=== PATIENT | female | born 1985 | race Caucasian/White ===

== ENCOUNTER 2018-03-05 20:24 | Emergency (ER) | payer SELFPAY ==
[2018-03-05 20:25] VITALS: BP 161/87; PULSE 97; RESP 18; TEMP 36.8; O2SAT 99; BMI 31.8
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
[2018-03-05] MEDS: HYDROcodone Bitartrate/Apap 5/325 Tablet PO ×2 (21:24→22:34)
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
== END 2018-03-05 22:38 | disposition home or self-care (01) ==
PROVIDERS: Emergency Provider Emergency Medicine
DX: S29.012A Strain of muscle and tendon of back wall of thorax, initial encounter (principal); S80.12XA Contusion of left lower leg, initial encounter; V43.52XA Car driver injured in collision with other type car in traffic accident, initial encounter; Y93.9 Activity, unspecified; Y92.410 Unspecified street and highway as the place of occurrence of the external cause; Y99.9 Unspecified external cause status; Z72.0 Tobacco use
CPT/HCPCS: 71046; 72040; 72100; 99282

== ENCOUNTER 2018-03-08 14:45 | Emergency (ER) | payer SELFPAY ==
[2018-03-08 14:46] VITALS: BP 128/95; PULSE 93; RESP 18; TEMP 36.6; O2SAT 98; BMI 31.8
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
[2018-03-08 16:18] VITALS: BP 124/74; PULSE 62; RESP 15; O2SAT 98
--- NOTE | 2018-03-08 16:18 | ED.RN ---
PT REFUSED PERSCRIPTIONS STATING SHE ALREADY HAD BOTH OF THEM AT HOME. THEY WERE PLACED IN THE SHREDDER.
== END 2018-03-08 16:19 | disposition home or self-care (01) ==
LOC: ED 15:48
PROVIDERS: Emergency Provider Emergency Medicine
DX: S16.1XXD Strain of muscle, fascia and tendon at neck level, subsequent encounter (principal); S06.0X0D Concussion without loss of consciousness, subsequent encounter; V43.52XD Car driver injured in collision with other type car in traffic accident, subsequent encounter
CPT/HCPCS: 70450; 72125; 99282

== ENCOUNTER → 2019-04-30 08:45 | Outpatient (CLI) | payer MEDICAID, SELFPAY ==
[2019-03-25 16:27] VITALS: BMI 31.8
[2019-04-30 09:26] LABS: Absolute Lymphocyte Count 2.32 X10^3/uL (0.83-4.51); Absolute Neutrophil Count 4.4 X10^3/uL (2.0-7.7); Basophil# 0.05 X10^3/uL; Basophil% 0.7 % (0-1); Eosinophil# 0.11 X10^3/uL; Eosinophils% 1.4 % (0-5); Hematocrit 38.2 % (37-47); Hemoglobin 10.8 g/dL (12.0-15.0); Lymphocyte # 2.32 X10^3/ul (4.0); Lymphocyte % 30.6 % (19-41); Mean Corp Hgb Conc 28.3 g/dL (32-36); Mean Corpuscular Hgb 20.7 pg (27.0-32.0); Mean Corpuscular Volume 73.3 fL (81-99); Mean Platelet Vol. 10.6 fl (6.2-12.0); Monocyte# 0.66 X10^3/uL; Monocyte% 8.7 % (0-10); NRBC Flagged by Analyzer 0 % (0-5); Neutrophil # 4.42 X10^3/uL (2.7-7.7); Neutrophil % 58.2 % (47-70); POSITIVE MORPHOLOGY YES; Platelet Count 355 K/mm3 (150-450); RBC Distribution Width CV 21.9 % (11.6-14.6); RBC Distribution Width SD 56.3 fl (35.1-43.9); Red Blood Count 5.21 M/mm3 (4.2-5.4); White Blood Count 7.6 K/mm3 (4.4-11.0)
[2019-04-30 09:43] LABS: Differential Indicated SCAN CRITERIA MET
[2019-04-30 09:50] LABS: Anisocytosis 2+; Differential Comment SCANNED; Macrocytosis 1+; Microcytosis 1+
[2019-04-30 09:52] LABS: ALB/GLOB Ratio 0.9 RATIO (0.9-2.4); AST(SGOT) 64 U/L (15-37); Alanine Aminotransfer ALT/SGPT 106 U/L (13-56); Albumin, Serum 3.6 g/dL (3.2-5.0); Alkaline Phosphatase 92 U/L (45-117); Anion Gap 4 (5-15); BUN 7 mg/dL (7-18); BUN/Creat Ratio 11.7 RATIO (10-20); Calcium,Total 8.5 mg/dL (8.5-10.1); Chloride 108 mmol/L (98-107); Cholesterol 117 mg/dL (200); EST Glomerular Filtration Rate 122 mL/min (>60); Est Glom Filt Rate - Afr Amer 148 mL/min (>60); Ferritin 7 ng/mL (8-252); Globulin 4.2 g/dL (2.2-4.2); Glucose 101 mg/dL (74-106); High Density Lipoprotein 33 mg/dL; Iron 19 ug/dL (50-170); Iron Binding Capacity,Total 382 ug/dL (250-450); Potassium 3.8 mmol/L (3.5-5.1); Protein, Total 7.8 g/dL (6.4-8.2); Sodium Level 140 mmol/L (136-145); Triglycerides 121 mg/dL; Very Low Density Lipoprotein 24 mg/dL (5-40)
[2019-05-02 09:33] LABS: Vitamin D,25 Hydroxy 25.9 ng/mL (29.95-100.01)
== END ==
PROVIDERS: Family Provider Family Medicine; PCP Family Medicine; Referring Provider Family Medicine; Visit Provider Family Medicine
DX: D64.9 Anemia, unspecified (principal); R53.83 Other fatigue; Z13.220 Encounter for screening for lipoid disorders
CPT/HCPCS: 36415; 80053; 80061; 82306; 82728; 83540; 83550; 85025

== ENCOUNTER → 2019-07-20 16:41 | Outpatient (CLI) | payer MEDICAID, SELFPAY ==
[2019-03-25 16:27] VITALS: BMI 31.8
[2019-07-20 18:11] LABS: Absolute Lymphocyte Count 3.08 X10^3/uL (0.83-4.51); Absolute Neutrophil Count 5.3 X10^3/uL (2.0-7.7); Basophil# 0.04 X10^3/uL; Basophil% 0.4 % (0-1); Eosinophil# 0.09 X10^3/uL; Hematocrit 39.3 % (37-47); Hemoglobin 11.9 g/dL (12.0-15.0); Lymphocyte # 3.08 X10^3/ul (4.0); Lymphocyte % 33.3 % (19-41); Mean Corp Hgb Conc 30.3 g/dL (32-36); Mean Corpuscular Hgb 24.1 pg (27.0-32.0); Mean Corpuscular Volume 79.6 fL (81-99); Mean Platelet Vol. 11.5 fl (6.2-12.0); Monocyte# 0.76 X10^3/uL; Monocyte% 8.2 % (0-10); NRBC Flagged by Analyzer 0 % (0-5); Neutrophil # 5.26 X10^3/uL (2.7-7.7); Neutrophil % 56.8 % (47-70); Platelet Count 324 K/mm3 (150-450); RBC Distribution Width CV 17.2 % (11.6-14.6); RBC Distribution Width SD 49.4 fl (35.1-43.9); Red Blood Count 4.94 M/mm3 (4.2-5.4); White Blood Count 9.3 K/mm3 (4.4-11.0)
[2019-07-22 12:35] LABS: ALB/GLOB Ratio 0.9 RATIO (0.9-2.4); AST(SGOT) 27 U/L (15-37); Alanine Aminotransfer ALT/SGPT 41 U/L (13-56); Albumin, Serum 3.6 g/dL (3.2-5.0); Alkaline Phosphatase 82 U/L (45-117); Anion Gap 7 (5-15); BUN 6 mg/dL (7-18); BUN/Creat Ratio 10.4 RATIO (10-20); Calcium,Total 8.9 mg/dL (8.5-10.1); Chloride 104 mmol/L (98-107); Creatinine, Serum 0.58 mg/dL (0.55-1.02); EST Glomerular Filtration Rate 126 mL/min (>60); Est Glom Filt Rate - Afr Amer 153 mL/min (>60); Globulin 4.1 g/dL (2.2-4.2); Glucose 108 mg/dL (74-106); Protein, Total 7.7 g/dL (6.4-8.2); Sodium Level 138 mmol/L (136-145)
== END ==
PROVIDERS: PCP Family Medicine; Referring Provider Family Medicine; Visit Provider Family Medicine
DX: R53.83 Other fatigue (principal); R94.5 Abnormal results of liver function studies
CPT/HCPCS: 36415; 80053; 82306; 85025

== ENCOUNTER → 2019-10-14 15:55 | Outpatient (CLI) | payer MEDICAID, SELFPAY ==
[2019-03-25 16:27] VITALS: BMI 31.8
[2019-10-14 18:00] LABS: Absolute Lymphocyte Count 2.38 X10^3/uL (0.83-4.51); Absolute Neutrophil Count 4.8 X10^3/uL (2.0-7.7); Basophil# 0.04 X10^3/uL; Basophil% 0.5 % (0-1); Eosinophil# 0.16 X10^3/uL; Hematocrit 42.2 % (37-47); Hemoglobin 13.2 g/dL (12.0-15.0); Lymphocyte # 2.38 X10^3/ul (4.0); Lymphocyte % 29.5 % (19-41); Mean Corp Hgb Conc 31.3 g/dL (32-36); Mean Corpuscular Hgb 27.4 pg (27.0-32.0); Mean Corpuscular Volume 87.6 fL (81-99); Mean Platelet Vol. 11.7 fl (6.2-12.0); Monocyte# 0.67 X10^3/uL; Monocyte% 8.3 % (0-10); NRBC Flagged by Analyzer 0 % (0-5); Neutrophil % 59.5 % (47-70); Platelet Count 308 K/mm3 (150-450); RBC Distribution Width SD 48.3 fl (35.1-43.9); Red Blood Count 4.82 M/mm3 (4.2-5.4); White Blood Count 8.1 K/mm3 (4.4-11.0)
== END ==
PROVIDERS: PCP Family Medicine; Referring Provider Family Medicine; Visit Provider Family Medicine
DX: R53.83 Other fatigue (principal)
CPT/HCPCS: 36415; 82306; 85025

== ENCOUNTER → 2020-03-05 18:11 | Outpatient (CLI) | payer MEDICAID, SELFPAY ==
[2019-03-25 16:27] VITALS: BMI 31.8
== END ==
PROVIDERS: Visit Provider Family Medicine
DX: Z20.828 Contact with and (suspected) exposure to other viral communicable diseases (principal)
CPT/HCPCS: 87635; U0003

== ENCOUNTER → 2020-03-05 18:11 | Outpatient (CLI) | payer MEDICAID, SELFPAY ==
[2019-03-25 16:27] VITALS: BMI 31.8
== END ==
PROVIDERS: PCP Family Medicine; Visit Provider Family Medicine
DX: Z20.828 Contact with and (suspected) exposure to other viral communicable diseases (principal)

== ENCOUNTER → 2020-07-24 08:05 | Outpatient (CLI) | payer OTHER, MEDICAID, SELFPAY ==
[2019-03-25 16:27] VITALS: BMI 31.8
[2020-07-24 10:17] LABS: Absolute Lymphocyte Count 2.54 X10^3/uL (0.83-4.51); Absolute Neutrophil Count 5.5 X10^3/uL (2.0-7.7); Basophil# 0.05 X10^3/uL; Basophil% 0.6 % (0-1); Eosinophil# 0.14 X10^3/uL; Eosinophils% 1.6 % (0-5); Hematocrit 42.7 % (37-47); Hemoglobin 14.1 g/dL (12.0-15.0); Lymphocyte # 2.54 X10^3/ul (4.0); Lymphocyte % 28.7 % (19-41); Mean Corpuscular Hgb 29.3 pg (27.0-32.0); Mean Corpuscular Volume 88.8 fL (81-99); Mean Platelet Vol. 11.4 fl (6.2-12.0); Monocyte# 0.61 X10^3/uL; Monocyte% 6.9 % (0-10); NRBC Flagged by Analyzer 0 % (0-5); Neutrophil # 5.47 X10^3/uL (2.7-7.7); Neutrophil % 61.7 % (47-70); Platelet Count 262 K/mm3 (150-450); RBC Distribution Width CV 13.2 % (11.6-14.6); RBC Distribution Width SD 42.5 fl (35.1-43.9); Red Blood Count 4.81 M/mm3 (4.2-5.4); White Blood Count 8.9 K/mm3 (4.4-11.0)
[2020-07-24 10:35] LABS: ALB/GLOB Ratio 0.8 RATIO (0.9-2.4); AST(SGOT) 25 U/L (15-37); Alanine Aminotransfer ALT/SGPT 42 U/L (13-56); Albumin, Serum 3.7 g/dL (3.2-5.0); Alkaline Phosphatase 87 U/L (45-117); Anion Gap 6 (5-15); BUN 10 mg/dL (7-18); BUN/Creat Ratio 13.8 RATIO (10-20); Calcium,Total 8.8 mg/dL (8.5-10.1); Chloride 106 mmol/L (98-107); Cholesterol 144 mg/dL (200); Creatinine, Serum 0.72 mg/dL (0.55-1.02); EST Glomerular Filtration Rate 97 mL/min (>60); Est Glom Filt Rate - Afr Amer 117 mL/min (>60); Ferritin 111 ng/mL (8-252); Globulin 4.4 g/dL (2.2-4.2); Glucose 118 mg/dL (74-106); High Density Lipoprotein 33 mg/dL; Iron 75 ug/dL (50-170); Iron Binding Capacity,Total 267 ug/dL (250-450); Potassium 3.6 mmol/L (3.5-5.1); Protein, Total 8.1 g/dL (6.4-8.2); Sodium Level 139 mmol/L (136-145); Triglycerides 120 mg/dL; Very Low Density Lipoprotein 24 mg/dL (5-40)
== END ==
PROVIDERS: PCP Family Medicine; Referring Provider Family Medicine; Visit Provider Family Medicine
DX: E66.9 Obesity, unspecified (principal); L65.9 Nonscarring hair loss, unspecified; D63.8 Anemia in other chronic diseases classified elsewhere
CPT/HCPCS: 36415; 80053; 80061; 82728; 83540; 83550; 84443; 85025

== ENCOUNTER → 2020-09-25 09:03 | Outpatient (CLI) | payer OTHER, MEDICAID, SELFPAY ==
[2019-03-25 16:27] VITALS: BMI 31.8
[2020-09-25 11:05] LABS: Thyroid Stim Hormone (TSH) 9.05 uIU/mL (0.358-3.74)
== END ==
PROVIDERS: PCP Family Medicine; Referring Provider Family Medicine; Visit Provider Family Medicine
DX: E03.9 Hypothyroidism, unspecified (principal)
CPT/HCPCS: 36415; 84443

== ENCOUNTER → 2020-10-16 14:12 | Outpatient (CLI) | payer OTHER, MEDICAID, SELFPAY ==
[2019-03-25 16:27] VITALS: BMI 31.8
== END ==
PROVIDERS: PCP Family Medicine; Referring Provider Family Medicine; Visit Provider Family Medicine
DX: Z20.822 Contact with and (suspected) exposure to COVID-19 (principal)
CPT/HCPCS: 87635; U0005; U0003

== ENCOUNTER → 2020-11-22 16:13 | Outpatient (CLI) | payer OTHER, MEDICAID, SELFPAY ==
[2019-03-25 16:27] VITALS: BMI 31.8
[2020-11-22 18:04] LABS: Thyroid Stim Hormone (TSH) 5.03 uIU/mL (0.358-3.74)
== END ==
PROVIDERS: PCP Family Medicine; Referring Provider Family Medicine; Visit Provider Family Medicine
DX: E03.9 Hypothyroidism, unspecified (principal)
CPT/HCPCS: 36415; 84443

== ENCOUNTER → 2020-12-17 09:13 | Outpatient (CLI) | payer OTHER, MEDICAID, SELFPAY ==
[2019-03-25 16:27] VITALS: BMI 31.8
== END ==
PROVIDERS: PCP Family Medicine; Referring Provider Family Medicine; Visit Provider Family Medicine
DX: Z20.822 Contact with and (suspected) exposure to COVID-19 (principal)
CPT/HCPCS: 87635; U0005; U0003

== ENCOUNTER → 2020-12-20 10:01 | Outpatient (CLI) | payer OTHER, MEDICAID, SELFPAY ==
[2019-03-25 16:27] VITALS: BMI 31.8
== END ==
PROVIDERS: PCP Family Medicine; Referring Provider Family Medicine; Visit Provider Family Medicine
DX: Z20.822 Contact with and (suspected) exposure to COVID-19 (principal)
CPT/HCPCS: 87635; U0005; U0003

== ENCOUNTER → 2021-01-30 08:01 | Outpatient (CLI) | payer OTHER, MEDICAID, SELFPAY ==
[2021-01-30 10:13] LABS: Absolute Lymphocyte Count 2.18 X10^3/uL (0.83-4.51); Absolute Neutrophil Count 3.6 X10^3/uL (2.0-7.7); Basophil# 0.02 X10^3/uL; Basophil% 0.3 % (0-1); Eosinophil# 0.07 X10^3/uL; Eosinophils% 1.1 % (0-5); Hematocrit 43.8 % (37-47); Hemoglobin 14.2 g/dL (12.0-15.0); Lymphocyte # 2.18 X10^3/ul (0.83-4.51); Lymphocyte % 33.4 % (19-41); Mean Corp Hgb Conc 32.4 g/dL (32-36); Mean Corpuscular Hgb 28.9 pg (27.0-32.0); Mean Corpuscular Volume 89.2 fL (81-99); Mean Platelet Vol. 11.4 fl (6.2-12.0); Monocyte# 0.69 X10^3/uL; Monocyte% 10.6 % (0-10); NRBC Flagged by Analyzer 0 % (0-5); Neutrophil # 3.55 X10^3/uL (2.7-7.7); Neutrophil % 54.3 % (47-70); Platelet Count 268 K/mm3 (150-450); RBC Distribution Width SD 42.1 fl (35.1-43.9); Red Blood Count 4.91 M/mm3 (4.2-5.4); White Blood Count 6.5 K/mm3 (4.4-11.0)
[2021-01-30 10:39] LABS: ALB/GLOB Ratio 0.8 RATIO (0.9-2.4); AST(SGOT) 28 U/L (15-37); Alanine Aminotransfer ALT/SGPT 44 U/L (13-56); Albumin, Serum 3.4 g/dL (3.2-5.0); Alkaline Phosphatase 86 U/L (45-117); Anion Gap 7 (5-15); BUN 6 mg/dL (7-18); BUN/Creat Ratio 10.3 RATIO (10-20); Chloride 104 mmol/L (98-107); Creatinine, Serum 0.58 mg/dL (0.55-1.02); EST Glomerular Filtration Rate 124 mL/min (>60); Est Glom Filt Rate - Afr Amer 150 mL/min (>60); Ferritin 203 ng/mL (8-252); Globulin 4.3 g/dL (2.2-4.2); Glucose 108 mg/dL (74-106); Potassium 3.6 mmol/L (3.5-5.1); Protein, Total 7.7 g/dL (6.4-8.2); Sodium Level 137 mmol/L (136-145); Thyroid Stim Hormone (TSH) 1.38 uIU/mL (0.358-3.74)
== END ==
PROVIDERS: PCP Family Medicine; Referring Provider Family Medicine; Visit Provider Family Medicine
DX: E03.9 Hypothyroidism, unspecified (principal); D63.8 Anemia in other chronic diseases classified elsewhere
CPT/HCPCS: 36415; 80053; 82728; 84443; 85025

== ENCOUNTER → 2021-04-08 09:12 | Outpatient (CLI) | payer OTHER, MEDICAID, SELFPAY | PROVIDERS: PCP Family Medicine; Visit Provider Registered Nurse | DX: Z11.52 Encounter for screening for COVID-19 (principal) | CPT/HCPCS: 87635; U0005; U0003 ==

== ENCOUNTER → 2021-04-24 09:48 | Outpatient (CLI) | payer OTHER, MEDICAID, SELFPAY ==
[2021-04-24 12:38] LABS: Thyroid Stim Hormone (TSH) 1.31 uIU/mL (0.358-3.74)
== END ==
PROVIDERS: PCP Family Medicine; Referring Provider Family Medicine; Visit Provider Family Medicine
DX: E03.9 Hypothyroidism, unspecified (principal)
CPT/HCPCS: 36415; 84443

== ENCOUNTER → 2021-05-06 08:12 | Outpatient (CLI) | payer OTHER, MEDICAID, SELFPAY | PROVIDERS: PCP Family Medicine; Visit Provider Family Medicine | DX: Z20.822 Contact with and (suspected) exposure to COVID-19 (principal) | CPT/HCPCS: 87635; U0005; U0003 ==

== ENCOUNTER 2021-06-07 11:32 | Outpatient (CLI) | payer OTHER, MEDICAID, SELFPAY ==
--- NOTE | 2021-06-07 11:51 | RAD_ITS ---
EXAM: XR SACRUM AND COCCYX, 2 OR MORE VIEWS CLINICAL INDICATION: TAIL BONE PAIN TECHNIQUE: Frontal and lateral views of the sacrum and coccyx. This report was created using [employer] technology. COMPARISON: None. FINDINGS: SACRUM/COCCYX: Unremarkable. No displaced fracture. No destructive or sclerotic lesions. Note that overlapping bowel shadows may however obscure fine detail in the frontal view. Sacroiliac joints are unremarkable. SOFT TISSUES: Metallic jewelry is noted in the labial soft tissue. No soft tissue swelling or gas. TUBES, LINES AND DEVICES: An intrauterine device is identified in the pelvis and this is likely within the uterus. RAD/Sacrum-Coccyx min 2 Views IMPRESSION: No acute findings in the sacrum or coccyx. Electronically Signed: Parrish Keith MD at 17:33 EST Reading Location ID and State: [facility] / [place] , Service support ,
== END 2021-06-07 23:59 | disposition short-term general hospital (02) ==
PROVIDERS: PCP Family Medicine; Referring Provider Registered Nurse; Visit Provider Registered Nurse
DX: M53.3 Sacrococcygeal disorders, not elsewhere classified (principal)
CPT/HCPCS: 72220

== ENCOUNTER 2021-07-31 08:03 | Outpatient (CLI) | payer OTHER, MEDICAID, SELFPAY ==
[2021-07-31 10:09] LABS: Absolute Lymphocyte Count 2.95 X10^3/uL (0.83-4.51); Absolute Neutrophil Count 4.6 X10^3/uL (2.0-7.7); Basophil# 0.04 X10^3/uL; Basophil% 0.5 % (0-1); Eosinophil# 0.11 X10^3/uL; Eosinophils% 1.3 % (0-5); Hematocrit 42.1 % (37-47); Hemoglobin 14.1 g/dL (12.0-15.0); Lymphocyte # 2.95 X10^3/ul (0.83-4.51); Lymphocyte % 35.7 % (19-41); Mean Corp Hgb Conc 33.5 g/dL (32-36); Mean Corpuscular Hgb 29.9 pg (27.0-32.0); Mean Corpuscular Volume 89.2 fL (81-99); Mean Platelet Vol. 11.4 fl (6.2-12.0); Monocyte# 0.57 X10^3/uL; Monocyte% 6.9 % (0-10); NRBC Flagged by Analyzer 0 % (0-5); Neutrophil # 4.57 X10^3/uL (2.7-7.7); Neutrophil % 55.4 % (47-70); Platelet Count 291 K/mm3 (150-450); RBC Distribution Width CV 13.2 % (11.6-14.6); RBC Distribution Width SD 43.3 fl (35.1-43.9); Red Blood Count 4.72 M/mm3 (4.2-5.4); White Blood Count 8.3 K/mm3 (4.4-11.0)
[2021-07-31 10:28] LABS: ALB/GLOB Ratio 0.9 RATIO (0.9-2.4); AST(SGOT) 21 U/L (15-37); Alanine Aminotransfer ALT/SGPT 38 U/L (13-56); Albumin, Serum 3.5 g/dL (3.2-5.0); Alkaline Phosphatase 78 U/L (45-117); Anion Gap 7 (5-15); BUN 12 mg/dL (7-18); BUN/Creat Ratio 16.4 RATIO (10-20); Calcium,Total 9.1 mg/dL (8.5-10.1); Chloride 106 mmol/L (98-107); Creatinine, Serum 0.73 mg/dL (0.55-1.02); EST Glomerular Filtration Rate 95 mL/min (>60); Est Glom Filt Rate - Afr Amer 115 mL/min (>60); Ferritin 183 ng/mL (8-252); Globulin 3.9 g/dL (2.2-4.2); Glucose 121 mg/dL (74-106); Potassium 3.8 mmol/L (3.5-5.1); Protein, Total 7.4 g/dL (6.4-8.2); Sodium Level 138 mmol/L (136-145); Thyroid Stim Hormone (TSH) 2.15 uIU/mL (0.358-3.74)
== END 2021-07-31 23:59 | disposition home or self-care (01) ==
LOC: MFPLAB 08:08
PROVIDERS: PCP Family Medicine; Referring Provider Family Medicine; Visit Provider Registered Nurse
DX: E03.9 Hypothyroidism, unspecified (principal); D63.8 Anemia in other chronic diseases classified elsewhere; E66.9 Obesity, unspecified
CPT/HCPCS: 36415; 80053; 82728; 83036; 84443; 85025

== ENCOUNTER → 2022-05-23 | Outpatient (CLI) | payer OTHER, MEDICAID, SELFPAY ==
[2022-05-23 10:10] LABS: Absolute Neutrophil Count 5.5 X10^3/uL (2.0-7.7); Basophil# 0.04 X10^3/uL; Basophil% 0.4 % (0-1); Eosinophil# 0.14 X10^3/uL; Eosinophils% 1.5 % (0-5); Hematocrit 44.5 % (37-47); Lymphocyte % 31.5 % (19-41); Mean Corp Hgb Conc 33.7 g/dL (32-36); Mean Corpuscular Hgb 29.7 pg (27.0-32.0); Mean Corpuscular Volume 88.1 fL (81-99); Mean Platelet Vol. 11.4 fl (6.2-12.0); Monocyte# 0.64 X10^3/uL; Monocyte% 6.9 % (0-10); NRBC Flagged by Analyzer 0 % (0-5); Neutrophil # 5.46 X10^3/uL (2.7-7.7); Neutrophil % 59.4 % (47-70); Platelet Count 277 K/mm3 (150-450); RBC Distribution Width CV 12.8 % (11.6-14.6); RBC Distribution Width SD 41.5 fl (35.1-43.9); Red Blood Count 5.05 M/mm3 (4.2-5.4); White Blood Count 9.2 K/mm3 (4.4-11.0)
[2022-05-23 10:27] LABS: Hemoglobin A1c 6.5 % (3.8-5.6)
[2022-05-23 10:35] LABS: Vitamin B12 452 pg/mL (211-911); Vitamin D,25 Hydroxy 47.1 ng/mL
[2022-05-23 10:46] LABS: AST(SGOT) 34 U/L (15-37); Alanine Aminotransfer ALT/SGPT 67 U/L (13-56); Albumin, Serum 3.9 g/dL (3.2-5.0); Alkaline Phosphatase 91 U/L (45-117); Anion Gap 9 (5-15); BUN 13 mg/dL (7-18); BUN/Creat Ratio 20.8 RATIO (10-20); Calcium,Total 9.2 mg/dL (8.5-10.1); Chloride 104 mmol/L (98-107); Cholesterol 146 mg/dL (200); Creatinine, Serum 0.63 mg/dL (0.55-1.02); EST Glomerular Filtration Rate 114 mL/min (>60); Est Glom Filt Rate - Afr Amer 137 mL/min (>60); Ferritin 259 ng/mL (8-252); Globulin 3.8 g/dL (2.2-4.2); Glucose 121 mg/dL (74-106); High Density Lipoprotein 34 mg/dL; Magnesium 2.2 mg/dL (1.6-2.6); Protein, Total 7.7 g/dL (6.4-8.2); Sodium Level 140 mmol/L (136-145); Thyroid Stim Hormone (TSH) 4.39 uIU/mL (0.358-3.74); Triglycerides 146 mg/dL; Very Low Density Lipoprotein 29 mg/dL (5-40)
== END | disposition home or self-care (01) ==
LOC: MFPLAB 08:08
PROVIDERS: PCP Family Medicine; Referring Provider Family Medicine; Visit Provider Family Medicine
DX: E55.9 Vitamin D deficiency, unspecified (principal); D63.8 Anemia in other chronic diseases classified elsewhere; R53.83 Other fatigue; R73.03 Prediabetes; Z13.220 Encounter for screening for lipoid disorders
CPT/HCPCS: 36415; 80053; 80061; 82306; 82607; 82728; 83036; 83735; 84443; 85025

== ENCOUNTER → 2022-08-05 | Outpatient (CLI) | payer OTHER, MEDICAID, SELFPAY ==
[2022-08-05 10:33] LABS: Thyroid Stim Hormone (TSH) 4.33 uIU/mL (0.358-3.74)
[2022-08-05 12:26] LABS: Hemoglobin A1c 6.3 % (3.8-5.6)
== END | disposition home or self-care (01) ==
LOC: MFPLAB 09:01
PROVIDERS: PCP Family Medicine; Referring Provider Family Medicine; Visit Provider Family Medicine
DX: R73.03 Prediabetes (principal); E03.9 Hypothyroidism, unspecified
CPT/HCPCS: 36415; 83036; 84443

== ENCOUNTER → 2022-08-25 | Outpatient (CLI) | payer OTHER, MEDICAID, SELFPAY ==
--- NOTE | 2022-08-25 08:45 | BI_ITS ---
MAMMOGRAPHY - BILATERAL DIAGNOSTIC REASON FOR EXAM: Female, 36 years old. Left lateral breast pain. PERTINENT HISTORY: Non-contributory. TECHNIQUE: Digital bilateral breast gina (3D mammographic acquisition) in the CC and MLO projections. 2-D mediolateral oblique (MLO) and craniocaudad (CC) views of both breasts were obtained. CAD: Full Field Digital Mammography with Computer Added Detection was performed. COMPARISON: None. Baseline examination. FINDINGS: Breast Composition: The breasts are heterogeneously dense, which may obscure small masses. There are no dominant masses or suspicious calcifications. No other significant abnormalities are identified. BI/DIAG MAMM W/CAD, BILAT IMPRESSION: Negative diagnostic mammogram. The patient''s history of occasional left lateral breast pain, correlation with ultrasound is recommended. ASSESSMENT CATEGORY: Approximately 10% of breast cancers are not detected by mammography. A normal mammogram should not delay biopsy of a clinically suspicious abnormality. Electronically Signed: Dylon Lazo MD at 10:08 EDT ,
--- NOTE | 2022-08-25 09:56 | US_ITS ---
STUDY: ULTRASOUND BREAST - LEFT REASON FOR EXAM: Female, 36 years old. Pain in the left breast. TECHNIQUE: Axial and longitudinal images of the LEFT breast were performed with a high resolution ultrasound transducer. # OF IMAGES: 32 COMPARISON: Comparison is made with prior mammogram done earlier in the day. FINDINGS: LEFT Breast: The lateral aspect of the left breast was examined with ultrasound. Heterogeneously dense fibroglandular tissue. No sonographic abnormality is seen. US/Breast Limited Unilateral IMPRESSION: No sonographic abnormality is seen. ASSESSMENT CATEGORY: BIRADS Category 1: Negative. A letter regarding these results will be sent to the patient by the facility within 30 days. Electronically Signed: Dylon Lazo MD at 12:27 EDT ,
== END | disposition home or self-care (01) ==
LOC: OPBI 08:42
PROVIDERS: PCP Family Medicine; Referring Provider Family Medicine; Visit Provider Family Medicine
DX: N64.4 Mastodynia (principal)
CPT/HCPCS: 76642; 77062; 77066; G0279

== ENCOUNTER → 2022-09-11 | Outpatient (CLI) | payer OTHER, MEDICAID, SELFPAY ==
--- NOTE | 2022-09-11 16:15 | RAD_ITS ---
INDICATION: tension migraine EXAMINATION/TECHNIQUE: X-RAY - XR Skull Less Than 4 Views COMPARISON: None. FINDINGS: CALVARIUM: No depressed skull fracture. No destructive or sclerotic abnormality observed. SOFT TISSUES: No soft tissue swelling or gas. SINUSES: No acute abnormality. RAD/Skull less than 4 Views IMPRESSION: Unremarkable radiographs of the skull. If symptoms persist, recommend head CT for intracranial evaluation. Electronically Signed: Goyo Castro MD at 23:20 EDT ,
--- NOTE | 2022-09-11 16:15 | RAD_ITS ---
INDICATION: cervical somatic dysfunction EXAMINATION/TECHNIQUE: X-RAY - XR Spine Cervical 4 or 5 Views COMPARISON: 03/05/2018 FINDINGS: VERTEBRAE: Preserved vertebral body height. No fracture. No spondylolisthesis. Preservation of the normal cervical lordosis. No significant facet arthropathy. DISCS: Disc spaces are maintained. NECK SOFT TISSUES: No prevertebral soft tissue widening. LUNG APICES: Clear. RAD/Cerv Spine 4 or 5 Views IMPRESSION: Stable study. No significant abnormality.. Electronically Signed: Goyo Castro MD at 0:08 EDT ,
== END | disposition home or self-care (01) ==
LOC: MTRAD 16:15
PROVIDERS: PCP Family Medicine; Referring Provider Family Medicine; Visit Provider Family Medicine
DX: G43.909 Migraine, unspecified, not intractable, without status migrainosus (principal); M99.01 Segmental and somatic dysfunction of cervical region
CPT/HCPCS: 70250; 72050

== ENCOUNTER → 2022-10-20 | Outpatient (CLI) | payer OTHER, MEDICAID, SELFPAY | END | disposition home or self-care (01) | LOC: LABSPEC 15:19 | PROVIDERS: PCP Family Medicine; Referring Provider Family Medicine; Visit Provider Family Medicine | DX: N39.0 Urinary tract infection, site not specified (principal) | CPT/HCPCS: 87086; 87088 ==

== ENCOUNTER → 2022-12-30 | Outpatient (CLI) | payer OTHER, SELFPAY ==
[2022-12-30 18:25] LABS: T4 Free Direct 1.09 ng/dL (0.76-1.46); Thyroid Stim Hormone (TSH) 2.28 uIU/mL (0.358-3.74)
== END | disposition home or self-care (01) ==
LOC: MFPLAB 15:25
PROVIDERS: PCP Family Medicine; Visit Provider Family Medicine
DX: E03.9 Hypothyroidism, unspecified (principal); R73.03 Prediabetes
CPT/HCPCS: 36415; 84439; 84443

== ENCOUNTER → 2023-03-20 | Outpatient (CLI) | payer OTHER, SELFPAY ==
[2023-03-20 17:50] LABS: Absolute Lymphocyte Count 2.44 X10^3/uL (0.83-4.51); Absolute Neutrophil Count 8.2 X10^3/uL (2.0-7.7); Basophil# 0.05 X10^3/uL; Basophil% 0.4 % (0-1); Eosinophil# 0.11 X10^3/uL; Hematocrit 43.6 % (37-47); Lymphocyte # 2.44 X10^3/ul (0.83-4.51); Lymphocyte % 21.1 % (19-41); Mean Corp Hgb Conc 32.1 g/dL (32-36); Mean Corpuscular Hgb 28.9 pg (27.0-32.0); Mean Corpuscular Volume 90.1 fL (81-99); Mean Platelet Vol. 11.7 fl (6.2-12.0); Monocyte# 0.75 X10^3/uL; Monocyte% 6.5 % (0-10); NRBC Flagged by Analyzer 0 % (0-5); Neutrophil # 8.18 X10^3/uL (2.7-7.7); Neutrophil % 70.7 % (47-70); Platelet Count 298 K/mm3 (150-450); RBC Distribution Width CV 13.1 % (11.6-14.6); RBC Distribution Width SD 43.1 fl (35.1-43.9); Red Blood Count 4.84 M/mm3 (4.2-5.4); White Blood Count 11.6 K/mm3 (4.4-11.0)
[2023-03-20 18:08] LABS: Vitamin D,25 Hydroxy 73.9 ng/mL
[2023-03-20 18:20] LABS: ALB/GLOB Ratio 0.8 RATIO (0.9-2.4); AST(SGOT) 18 U/L (15-37); Alanine Aminotransfer ALT/SGPT 35 U/L (13-56); Albumin, Serum 3.5 g/dL (3.2-5.0); Alkaline Phosphatase 94 U/L (45-117); Anion Gap 7 (5-15); BUN 12 mg/dL (7-18); BUN/Creat Ratio 15.9 RATIO (10-20); Calcium,Total 8.8 mg/dL (8.5-10.1); Chloride 105 mmol/L (98-107); Creatinine, Serum 0.75 mg/dL (0.55-1.02); EST Glomerular Filtration Rate 91 mL/min (>60); Est Glom Filt Rate - Afr Amer 110 mL/min (>60); Globulin 4.2 g/dL (2.2-4.2); Glucose 151 mg/dL (74-106); Potassium 3.5 mmol/L (3.5-5.1); Protein, Total 7.7 g/dL (6.4-8.2); Sodium Level 138 mmol/L (136-145); Thyroid Stim Hormone (TSH) 1.19 uIU/mL (0.358-3.74)
[2023-03-20 18:45] LABS: Hemoglobin A1c 6.1 % (3.8-5.6)
== END | disposition home or self-care (01) ==
LOC: MFPLAB 14:55
PROVIDERS: PCP Family Medicine; Visit Provider Family Medicine
DX: R55 Syncope and collapse (principal); E03.9 Hypothyroidism, unspecified; E55.9 Vitamin D deficiency, unspecified; R73.03 Prediabetes
CPT/HCPCS: 36415; 80053; 82306; 83036; 84443; 85025

== ENCOUNTER → 2023-05-27 | Outpatient (CLI) | payer OTHER, SELFPAY ==
--- NOTE | 2023-05-27 12:38 | RAD_ITS ---
STUDY: X-RAY - RIGHT KNEE REASON FOR EXAM: Female, 37 years old. PAIN TECHNIQUE: 4 view(s) of the knee. COMPARISON: None. FINDINGS: Normal visualized distal femur. Normal visualized proximal tibia and fibula. Normal proximal tibiofibular articulation. Mildly narrowed medial femorotibial compartment. Normal lateral femorotibial compartment. Normal patellofemoral articulation. Mild lateral patellar tilting of uncertain etiology and clinical significance The soft tissue structures are unremarkable. RAD/Knee 4 or More Views IMPRESSION: Early degenerative change. No acute fracture or dislocation Electronically Signed: Giacomo Bear MD at 20:22 EST Reading Location ID and State: [facility] / [place] Tel , Service support ,
--- OUTSIDE RECORDS SUMMARY | 2023-05-27 12:42 | XMS RPT_ITS | CCD ---
Author Name Unknown Address [address] [place] [address] Organization [facility] Care Team Providers Care Cnc Mechanic Name Role Phone NO REFERRING DR Unavailable Unavailable [employer] Unavailable Unavailable UNKNOWN, PROVIDER Unavailable Unavailable BEVERLEY ALEMAN Unavailable Unavailable PROVIDER, UNKNOWN Unavailable Unavailable No, PCP Unavailable Unavailable (Historical), No Pcp Primary Care Provider Unava ilable (Historical), No Pcp Primary Care Provider Unava ilable YNES SAUCEDO Attending Unavailable Medications Current Medications Medication Drug Class(es) Dates Sig (Normalized) Sig (Original) levonorgestrel 0.632722 mg/hr intrauterine system (3 sources) Progestin, Progestin-containi ng Intrauterine Device Start: 11-02-2019 End: 10-31-2024 levonorgestrel (MIRENA) 20 mcg/24 hours (5 yrs) 52 mg IUD 1 Each by INTRAUTERINE route as directed. 1 Each 0 11/02/2019 10/31/2024 Active Completed/Discontinued Medications Medication Drug Class(es) Dates Sig (Normalized) Sig (Original) Ascorbic Acid (3 sources) Vitamin C ascorbic acid (V ITAMIN C ORAL) Take by mouth. 0 Active Problems Active Problems Problem Classification Problem Date Documented Date Episodic/Chronic Immunizations and screening for infectious disease (2 sources) Patient encounter status; Translations: [Encounter for screening for human papillomavirus (HPV)] Onset: 10-24-2022 Episodic Other nutritional; endocrine; and metabolic disorders (4 sources) Obese class I; Translations: [Obesity, unspecified] Onset: 08-28-2021 Chronic Other screening for suspected conditions (not mental disorders or infectious disease) (2 sources) Cancer cervix screening status; Translations: [Encounter for screening for malignant neoplasm of cervix] Onset: 10-24-2022 Episodic Substance-related disorders (3 sources) Nicotine dependence, cigarettes, uncomplicated; Translations: [Nicotine dependence, unspecified, uncomplicated] Onset: 01-18-2017 Chronic Past or Other Problems Problem Classification Problem Date Documented Da te Episodic/Chronic Other connective tissue disease (7 sources) Muscle weakness (generalized); Translations: [Lateral epicondylitis, right elbow] Onset: 01-18-2017 Episodic Results Test Name Value Interpretation Reference Range Facil ity Vital Signs Date Time Vital Sign Value Performing Clinician Faci lity 10-24-2022 10:27-0400 Body height 170.2 cm Ynes Saucedo MD Work Phone: [facility] 10-24-2022 10:27-0400 Body weight 101.79 kg Ynes Saucedo MD Work Phone: [facility] 10-24-2022 10:27-0400 Diastolic blood pressure 62 mm[Hg] Ynes Saucedo MD Work Phone: [facility] 10-24-2022 10:27-0400 Systolic blood pressure 100 mm[Hg] Ynes Saucedo MD Work Phone: [facility] 08-28-2021 13:51-0400 Body height 168.9 cm Kely Bustillo MD Work Phone: [facility] 08-28-2021 13:51-0400 Body weight 99.79 kg Kely Bustillo MD Work Phone: [facility] Encounters Encounter Date Encounter Type Care Provider Facility Start: 02-06-2023 ambulatory Ynes Temple Work Phone: OB/Gynecology Plan of Treatment Date Care Activity Detail Author Start: 10-25-2027 HPV Testing HPV Testing [facility] Start: 10-25-2027 Pap Testing Pap Testing [facility] Start: 02-07-2025 HPV TESTING HPV TESTING [facility] Start: 02-07-2025 PAP TESTING PAP TESTING [facility] Start: 01-09-2023 Influenza vaccination [facility] Start: 05-11-2022 DEPRESSION ASSESSMENT DEPRESSION ASSESSMENT [facility] Start: 01-09-2022 Influenza vaccination INFLUENZA (Season Ended) [facility] Start: 10-09-2003 Urine microalbumin profile [facility] Start: 1996 Adult depression screening assessment DEPRESSION SCREENING [facility] Start: 1989 COVID-19 VACCINE (1) COVID-19 VACCINE (1) [facility] Start: 04-09-1985 COVID-19 VACCINE (#1) COVID-19 VACCINE (#1) [facility] Start: 1984 HEPATITIS B (1 of 3 - 3-dose series) HEPATITIS B (1 of 3 - 3-dose series) [facility] Start: 1984 Hepatitis B Vaccine (1 of 3 - 3-dose series) Hepatitis B Vaccine (1 of 3 - 3-dose series) [facility] PAP TEST PAP TEST Lab [facility] Encounter for gynecological examination (general) (routine) without abnormal findings Special screening examination for human papillomavirus (HPV) Screening for cervical cancer 10/24/2022 10:55 AM EDT [facility] Work Phone: [facility] Immunizations Immunization Date Immunization Notes Care Provider Fa cili 03-31-2016 influenza virus vacc ine, unspecified formulation Ynes Saucedo MD Work Phone: [facility] Payers Date Payer Category Payer Medicaid [employer] [id number] 2022-Present [phone] [address] [place] [address] Medicaid [id number] 2022 Medicaid [id number] 2020 Private Health Insurance [facility] [employer] [id number] 2020-Present [phone] [address] [address] [place] [address] [facility] [id number] 2020 Private Health Insurance [facility] [employer] CHO[employer] [id number] 2020-Present [phone] [address] [address] [place] [address] O [id number] 2020 Unknown [id number] 2019 Medicaid [employer] [facility] MEDICAID [id number] 2019-Present [phone] [address] [place] [address] Medicaid [id number] Unknown [id number] Unknown Social History Date Type Detail Facility Start: 12-26-2014 End: 10-24-2022 Tobacco smoking status NHIS Ex-smoker [facility] Work Phone: End: 09-22-2014 History of tobacco use Current smoker [facility] Work Phone: Start: 12-26-2014 End: 10-24-2022 Tobacco use and exposure Smokeless tobacco non-user [facility] Work Phone: Start: 08-28-2021 End: 10-24-2022 Alcohol intake Current drinker of alcohol (finding) [facility] Start: 08-21-2014 History SDOH Alcohol Comment occ [facility] Start: 1985 Sex Assigned At Female C [facility] Start: 08-18-2021 End: 08-28-2021 Exposure to SARS-CoV-2 (event) Not sure [facility] End: 09-22-2014 History of tobacco use Cigarette Smoker [facility] Start: 10-24-2022 History of Social function [facility] Start: 10-24-2022 Tobacco use panel [facility] National Score (1-10 0), lower number is lower risk 51 [facility] Start: 06-19-2021 Gender identity Identifies as female gender (finding) [facility] Start: 06-19-2021 Sexual orientation Heterosexual (madhuri gregory) [facility] Note 02-06-2023 Telephone Encounter - Ynes Saucedo MD - 02/06/2023 3:49 PM EDT Note Date & Type Note Facility 02-06-2023 Miscellaneous Notes Formattin g of this note might be different from the original. I would not recommend checking hormone levels unless she is having other symptoms. If she is having other symptoms, she needs an appointment to discuss. Recommend starting with her PCP if she is noticing mood changes documented in this encounter [facility] Progress note 10-24-2022 Note Date & Type Note Facility 10-24-2022 Note HNO ID: [id number] Author: Ynes Saucedo MD Service: ? Author Type: Physician Type: Progress Notes Filed: 10/24/2022 11:20 AM Note Text: Electronic System Engineer offered: Patient declinesMaxine Miller is a 37 year old who presents for an annual gynecologic exam without complaints. Menses: no menses - Mirena IUD. 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 PAST MEDICAL HISTORY Diagnosis Date Abnormal Pap smear of cervix 2013 ascus 2019 Cervical high risk HPV (human papillomavirus) test positive 2016 PAST SURGICAL HISTORY Procedure Laterality Date SECTION HX 2004,2006 INSERTION OF IUD 09/11/2014 OFFICE LEEP 2013 VAGINOSCOPY 2013 FAMILY HISTORY Problem Relation Age of Onset Hypertension Mother Obesity Mother Heart Mother afib Stroke Father Cancer Maternal Grandmother lung Cancer Maternal Grandfather skin Diabetes Paternal Aunt SOCIAL HISTORY Social History Tobacco Use Smoking status: Former Types: Cigarettes Quit date: 09/22/2014 Years since quittin.0 Smokeless tobacco: Never Vaping Use Vaping Use: Never used Substance Use Topics Alcohol use: Yes Comment: occ Drug use: No REVIEW OF SYSTEMS Abdomen: No abdominal pain, nausea, vomiting, diarrhea, or constipation. No bloating, early satiety, indigestion, or increased flatulence. Bladder: No dysuria, gross hematuria, urinary frequency, urinary urgency, or incontinence. Breast: No breast lumps, nipple d/c, overlying skin changes, redness or skin retraction. Allergies and current medication updated:Yes EXAM: BP 100/62 Ht 5' 7 (1.70m) Wt 224 lb 6.4 oz (101.8kg) LMP 09/10/2014 BMI 35.14 kg/(m2). GENERAL: pleasant, female in no apparent distress HEENT: Normocephalic, atraumatic, mucus membranes moist, and no lesions NECK: full range of motion DERMATOLOGY: Normal, without lesions, non-icteric, and non-hirsute BREAST: soft, non-tender, symmetric, no dominant mass, normal nipple-areolar complex, no lymphadenopathy, and no nipple discharge CHEST: Normal inspiratory effort ABDOMEN: soft, non-tender, and no masses PELVIC: external genitalia normal, normal Bartholin's glands, urethra, Kincheloe's glands, no vulvar lesions, no cervical lesions, good vaginal support, physiologic discharge present, normal appearing perineal body and perianal region, IUD strings visualized BIMANUAL: uterus normal size, shape and consistency, no adnexal masses, and non-tender RECTOVAGINAL: deferred. NEURO: exam grossly non-focal EXTREMITIES: normal ASSESSMENT/PLAN: 1) Health maintenance: Pap done with HPV. H/o LEEP. Mammogram starting age 40. Nutrition, exercise and routine health maintenance exams reviewed. HPV vaccine: discussed. 2) Contraception: IUD. Contraceptive options reviewed and information provided. 3) STD screening: Declined STD check. 4) Follow up one year or sooner as needed Ynes Saucedo DO [facility] History of Present illness Narrative 10-24-2022 Ynes Saucedo MD - 10/24/2022 10:21 AM EDT Note Date & Type Note Facility 10-24-2022 History of Presen t illness Narrative Electronic System Engineer offered: Patient declines. Angela is a 37 year old who presents for an annual gynecologic exam without complaints. Menses: no menses - Mirena IUD. 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 PAST MEDICAL HISTORY Diagnosis Date Abnormal Pap smear of cervix 2013 ascus 2019 Cervical high risk HPV (human papillomavirus) test positive 2016 PAST SURGICAL HISTORY Procedure Laterality Date SECTION HX 2005,2006 INSERTION OF IUD 09/11/2014 OFFICE LEEP 2013 VAGINOSCOPY 2013 FAMILY HISTORY Problem Relation Age of Onset Hypertension Mother Obesity Mother Heart Mother afib Stroke Father Cancer Maternal Grandmother lung Cancer Maternal Grandfather skin Diabetes Paternal Aunt SOCIAL HISTORY Social History Tobacco Use Smoking status: Former Types: Cigarettes Quit date: 09/22/2014 Years since quittin.0 Smokeless tobacco: Never Vaping Use Vaping Use: Never used Substance Use Topics Alcohol use: Yes Comment: occ Drug use: No REVIEW OF SYSTEMS Abdomen: No abdominal pain, nausea, vomiting, diarrhea, or constipation. No bloating, early satiety, indigestion, or increased flatulence. Bladder: No dysuria, gross hematuria, urinary frequency, urinary urgency, or incontinence. Breast: No breast lumps, nipple d/c, overlying skin changes, redness or skin retraction. Allergies and current medication updated:Yes EXAM: BP 100/62 Ht 5' 7 (1.70m) Wt 224 lb 6.4 oz (101.8kg) LMP 09/10/2014 BMI 35.14 kg/(m^2). GENERAL: pleasant, female in no apparent distress HEENT: Normocephalic, atraumatic, mucus membranes moist, and no lesions NECK: full range of motion DERMATOLOGY: Normal, without lesions, non-icteric, and non-hirsute BREAST: soft, non-tender, symmetric, no dominant mass, normal nipple-areolar complex, no lymphadenopathy, and no nipple discharge CHEST: Normal inspiratory effort ABDOMEN: soft, non-tender, and no masses PELVIC: external genitalia normal, normal Bartholin's glands, urethra, Kincheloe's glands, no vulvar lesions, no cervical lesions, good vaginal support, physiologic discharge present, normal appearing perineal body and perianal region, IUD strings visualized BIMANUAL: uterus normal size, shape and consistency, no adnexal masses, and non-tender RECTOVAGINAL: deferred. NEURO: exam grossly non-focal EXTREMITIES: normal ASSESSMENT/PLAN: 1) Health maintenance: Pap done with HPV. H/o LEEP. Mammogram starting age 40. Nutrition, exercise and routine health maintenance exams reviewed. HPV vaccine: discussed. 2) Contraception: IUD. Contraceptive options reviewed and information provided. 3) STD screening: Declined STD check. 4) Follow up one year or sooner as needed Ynes Saucedo DO documented in this encounter [facility] History of Present illness Narrative 08-28-2021 Kely Bustillo MD - 08/28/2021 1:47 PM EDT Note Date & Type Note Facility 08-28-2021 History of Presen t illness Narrative Angela is a 35 year old who presents for an annual gynecologic exam with complaints, some intermittent vulvar pruritis. No abnormal discharge.. 2 lumps in groin, no drainage, there a couple of weeks. Menses: rare, mirena in. 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 PAST MEDICAL HISTORY Diagnosis Date Abnormal Pap smear of cervix 2013 ascus 2019 Cervical high risk HPV (human papillomavirus) test positive 2016 PAST SURGICAL HISTORY Procedure Laterality Date SECTION HX 2004,2006 INSERTION OF IUD 09/11/2014 OFFICE LEEP 2013 VAGINOSCOPY 2013 FAMILY HISTORY Problem Relation Age of Onset Hypertension Mother Obesity Mother Heart Mother afib Stroke Father Cancer Maternal Grandmother lung Cancer Maternal Grandfather skin Diabetes Paternal Aunt SOCIAL HISTORY Social History Tobacco Use Smoking status: Former Smoker Quit date: 09/22/2014 Years since quittin.9 Smokeless tobacco: Never Used Vaping Use Vaping Use: Never used Substance Use Topics Alcohol use: Yes Comment: occ Drug use: No REVIEW OF SYSTEMS Abdomen: No abdominal pain, nausea, vomiting, diarrhea, or constipation. No bloating, early satiety, indigestion, or increased flatulence. Bladder: No dysuria, gross hematuria, urinary frequency, urinary urgency, or incontinence. Breast: No breast lumps, nipple d/c, overlying skin changes, redness or skin retraction. Allergies and current medication updated:Yes EXAM: Ht 5' 6.5 (1.69m) Wt 220 lb (99.8kg) LMP 09/10/2014 BMI 34.98 kg/(m^2). GENERAL: pleasant, female in no apparent distress HEENT: Normocephalic, atraumatic, mucus membranes moist and no lesions NECK: Supple, full range of motion, no adenopathy and thyroid normal DERMATOLOGY: Normal, without lesions, non-icteric and non-hirsute BREAST: soft, non-tender, symmetric, no dominant mass, normal nipple-areolar complex, no lymphadenopathy and no nipple discharge CHEST: Normal inspiratory effort ABDOMEN: soft, non-tender and no masses PELVIC: external genitalia normal, normal Bartholin's glands, urethra, Kincheloe's glands, no vulvar lesions, no cervical lesions, good vaginal support, physiologic discharge present, normal appearing perineal body and perianal region, IUD strings 2 cm long BIMANUAL: uterus normal size, shape and consistency, no adnexal masses and non-tender RECTOVAGINAL: deferred. NEURO: alert and oriented x3,exam grossly non-focal EXTREMITIES: normal ASSESSMENT/PLAN: 1) Health maintenance: Pap/HPV up to date. 2) Contraception: IUD. Contraceptive options reviewed and information provided. 3) STD screening: Declined STD check. 4) Follow up one year or sooner as needed No singif vulvar findings in area of concern, reassured Kely Bustillo MD documented in this encounter [facility] Evaluation note Note Date & Type Note Facility documented in this encounter [facility] Evaluation note Note Date & Type Note Facility documented in this encounter [facility] Summary Purpose Family History No Family History Records FoundNo Family History Records FoundNo Family History Records FoundNo Family History Records Found Advance Directives No Advanced Directives Records FoundNo Advanced Directives Records FoundNo Advanced Directives Records FoundNo Advanced Directives Records Found Additional Source Comments INFORMATION SOURCE (unrecogn ized section and content) DATE CREATED AUTHOR AUTHOR'S ORGANIZ ATION 11/04/2017 [facility] DATE CREATED AUTHOR AUTHOR'S ORGANIZ ATION 11/04/2017 [facility] DATE CREATED AUTHOR AUTHOR'S MING ATION 11/06/2022 [facility] Source Comments (unrecognize d section and content) In the event this informatio n is protected by the Federal Confidentiality of Alcohol and Drug Abuse Patient Records regulations: The Federal rules restrict any use of the information to criminally investigate or prosecute any alcohol or drug abuse patient.[facility] the event this information is protected by the Federal Confidentiality of Alcohol and Drug Abuse Patient Records regulations: The Federal rules restrict any use of the information to criminally investigate or prosecute any alcohol or drug abuse patient.[facility] the event this information is protected by the Federal Confidentiality of Alcohol and Drug Abuse Patient Records regulations: The Federal rules restrict any use of the information to criminally investigate or prosecute any alcohol or drug abuse patient.[facility] Reason for Visit (unrecogniz ed section and content) Reason Comments [facility] Teams (unrecognized sec tion and content) Cnc Mechanic Relationship Specialty Start Date End Date (Historical), No Pcp PCP - General 10/01/15 Cnc Mechanic Relationship Specialty Start Date End Date (Historical), No Pcp PCP - General 10/01/15 FOR RECORDS PERTAINING TO PATIENTS WHO ARE OR HAVE BEEN ENROLLED IN A CHEMICAL DEPENDENCY/SUBSTANCEABUSE PROGRAM, SOME INFORMATION MAY BE OMITTED. This clinical summary was aggregated from multiple sources. Caution should be exercised in using it in the provision of clinical care. This summary normalizes information from multiple sources, and as a consequence, information in this document may materially change the coding, format and clinical context of patient data. In addition, data may be omitted in some cases. CLINICAL DECISIONS SHOULD BE BASED ON THE PRIMARY CLINICAL RECORDS. [facility]. provides no warranty or guarantee of the accuracy or completeness of information in this document.
== END | disposition home or self-care (01) ==
LOC: MTRAD 12:36
PROVIDERS: PCP Family Medicine; Referring Provider Family Medicine; Visit Provider Family Medicine
DX: M25.561 Pain in right knee (principal)
CPT/HCPCS: 73564

== ENCOUNTER → 2023-08-07 | Outpatient (CLI) | payer OTHER, SELFPAY ==
[2023-08-07 10:00] LABS: Basophil# 0.02 X10^3/uL; Basophil% 0.2 % (0-1); Eosinophil# 0.09 X10^3/uL; Eosinophils% 1.1 % (0-5); Hematocrit 42.1 % (37-47); Hemoglobin 13.9 g/dL (12.0-15.0); Lymphocyte % 31.5 % (19-41); Mean Corpuscular Volume 87.9 fL (81-99); Mean Platelet Vol. 11.4 fl (6.2-12.0); Monocyte# 0.55 X10^3/uL; Monocyte% 6.7 % (0-10); NRBC Flagged by Analyzer 0 % (0-5); Neutrophil # 4.97 X10^3/uL (2.7-7.7); Neutrophil % 60.3 % (47-70); Platelet Count 280 K/mm3 (150-450); RBC Distribution Width CV 13.2 % (11.6-14.6); RBC Distribution Width SD 42.5 fl (35.1-43.9); Red Blood Count 4.79 M/mm3 (4.2-5.4); White Blood Count 8.3 K/mm3 (4.4-11.0)
[2023-08-07 10:25] LABS: AST(SGOT) 20 U/L (15-37); Alanine Aminotransfer ALT/SGPT 37 U/L (13-56); Albumin, Serum 3.6 g/dL (3.2-5.0); Alkaline Phosphatase 87 U/L (45-117); Anion Gap 5 (5-15); BUN 9 mg/dL (7-18); BUN/Creat Ratio 12.4 RATIO (10-20); Calcium,Total 9.2 mg/dL (8.5-10.1); Chloride 107 mmol/L (98-107); Cholesterol 122 mg/dL (200); Creatinine, Serum 0.72 mg/dL (0.55-1.02); EST Glomerular Filtration Rate 96 mL/min (>60); Est Glom Filt Rate - Afr Amer 116 mL/min (>60); Ferritin 180 ng/mL (8-252); Globulin 3.7 g/dL (2.2-4.2); Glucose 119 mg/dL (74-106); High Density Lipoprotein 33 mg/dL; Potassium 3.5 mmol/L (3.5-5.1); Protein, Total 7.3 g/dL (6.4-8.2); Sodium Level 137 mmol/L (136-145); T4 Free Direct 1.28 ng/dL (0.76-1.46); Thyroid Stim Hormone (TSH) 1.27 uIU/mL (0.358-3.74); Triglycerides 145 mg/dL; Very Low Density Lipoprotein 29 mg/dL (5-40)
[2023-08-07 14:06] LABS: Hemoglobin A1c 6.2 % (3.8-5.6)
== END | disposition home or self-care (01) ==
PROVIDERS: PCP Family Medicine; Referring Provider Family Medicine; Visit Provider Family Medicine
DX: E03.9 Hypothyroidism, unspecified (principal); R73.03 Prediabetes; R79.89 Other specified abnormal findings of blood chemistry
CPT/HCPCS: 36415; 80053; 80061; 82728; 83036; 84439; 84443; 85025

== ENCOUNTER → 2023-08-27 | Outpatient (CLI) | payer OTHER, SELFPAY ==
[2023-09-02 08:11] LABS: HPV APTIMA, High Risk Negative (Negative)
== END | disposition home or self-care (01) ==
LOC: LABSPEC 16:09
PROVIDERS: PCP Family Medicine; Referring Provider Nurse Practitioner Family; Visit Provider Nurse Practitioner Family
DX: Z12.4 Encounter for screening for malignant neoplasm of cervix (principal)
CPT/HCPCS: 87624; 88175; G0145

== ENCOUNTER → 2024-02-02 | Outpatient (CLI) | payer OTHER, SELFPAY ==
--- NOTE | 2024-02-02 11:55 | BI_ITS ---
MAMMOGRAPHY - BILATERAL SCREENING REASON FOR EXAM: Female, 38 years old. Routine annual screening examination. PERTINENT HISTORY: Non-contributory. TECHNIQUE: Digital bilateral breast licha (3D mammographic acquisition) in the CC and MLO projections. 2-D mediolateral oblique (MLO) and craniocaudad (CC) views of both breasts were obtained. CAD: Full Field Digital Mammography with Computer Added Detection was performed. COMPARISON: Comparison is made with prior study dated August 25, 2022. FINDINGS: Breast Composition: The breasts are heterogeneously dense, which may obscure small masses. There are no dominant masses or suspicious calcifications. No other significant abnormalities are identified. There has been no significant change since the prior study. BI/SCRN MAMM (CAD)W/LICHA BILAT IMPRESSION: Stable bilateral screening mammogram. Yearly follow-up mammogram recommended. (A) ASSESSMENT CATEGORY: BIRADS Category 1: Negative. A letter regarding these results will be sent to the patient by the facility within 30 days. Approximately 10% of breast cancers are not detected by mammography. A normal mammogram should not delay biopsy of a clinically suspicious abnormality. [id number] Electronically Signed: Dylon Lazo MD at 12:43 EDT ,
== END | disposition home or self-care (01) ==
LOC: OPBI 11:54
PROVIDERS: PCP Family Medicine; Referring Provider Nurse Practitioner Family; Visit Provider Nurse Practitioner Family
DX: Z12.31 Encounter for screening mammogram for malignant neoplasm of breast (principal)
CPT/HCPCS: 77063; 77067

== ENCOUNTER → 2024-02-24 | Outpatient (CLI) | payer OTHER, SELFPAY ==
--- NOTE | 2024-02-24 16:40 | RAD_ITS ---
INDICATION: cough EXAMINATION/TECHNIQUE: X-RAY - XR Chest 2 Views COMPARISON: 03/05/2018 FINDINGS: The lungs are clear. The cardiomediastinal silhouette is unremarkable. No pleural effusion or pneumothorax. No acute osseous abnormalities. RAD/Chest PA and Lateral IMPRESSION: No acute radiographic abnormalities. Electronically Signed: Arsen Barron MD at 16:54 EDT ,
== END | disposition home or self-care (01) ==
LOC: MTRAD 16:40
PROVIDERS: PCP Family Medicine; Referring Provider Physician Assistant; Visit Provider Physician Assistant
DX: R05.9 Cough, unspecified (principal)
CPT/HCPCS: 71046

== ENCOUNTER → 2024-06-21 | Outpatient (CLI) | payer OTHER, SELFPAY ==
[2024-06-21 14:14] LABS: Hemoglobin A1c 8.7 % (3.8-5.6)
== END | disposition home or self-care (01) ==
LOC: MFPLAB 09:29
PROVIDERS: PCP Family Medicine; Referring Provider Family Medicine; Visit Provider Family Medicine
DX: E03.9 Hypothyroidism, unspecified (principal); E55.9 Vitamin D deficiency, unspecified; R73.03 Prediabetes
CPT/HCPCS: 36415; 82306; 83036; 84443

== ENCOUNTER → 2024-08-11 | Outpatient (CLI) | payer OTHER, SELFPAY ==
[2024-08-11 16:15] LABS: Hemoglobin A1c 8.1 % (<=5.6)
== END | disposition home or self-care (01) ==
LOC: MFPLAB 08:09
PROVIDERS: PCP Family Medicine; Referring Provider Family Medicine; Visit Provider Family Medicine
DX: E03.9 Hypothyroidism, unspecified (principal); R73.03 Prediabetes
CPT/HCPCS: 36415; 83036; 84443

== ENCOUNTER → 2024-09-05 | Outpatient (CLI) | payer OTHER, SELFPAY ==
--- NOTE | 2024-09-05 09:15 | RAD_ITS ---
PROCEDURE: FOREARM 2 VIEWS 09/05/2024 REASON FOR EXAM: INJURY TECHNIQUE: 2 view(s) of the LEFT forearm COMPARISON: None FINDINGS: Fracture/dislocation: None visible. Joint space(s): Preserved. Soft tissues: Unremarkable. Foreign bodies: None visible. Bone mineralization: Unremarkable. Other: None. RAD/Forearm 2 Views IMPRESSION: No visible acute displaced fracture Reading Location: [id number]
== END | disposition home or self-care (01) ==
LOC: MTRAD 09:10
PROVIDERS: PCP Family Medicine; Referring Provider Physician Assistant; Visit Provider Physician Assistant
DX: S50.12XA Contusion of left forearm, initial encounter (principal)
CPT/HCPCS: 73090

== ENCOUNTER → 2024-10-05 | Outpatient (CLI) | payer OTHER, SELFPAY ==
[2024-10-05 11:07] LABS: Absolute Lymphocyte Count 2.79 X10^3/uL (0.83-4.51); Absolute Neutrophil Count 5.7 X10^3/uL (2.0-7.7); Basophil# 0.05 X10^3/uL; Basophil% 0.5 % (0-1); Eosinophil# 0.09 X10^3/uL; Hematocrit 40.9 % (37-47); Hemoglobin 13.5 g/dL (12.0-15.0); Lymphocyte # 2.79 X10^3/ul (0.83-4.51); Lymphocyte % 30.4 % (19-41); Mean Platelet Vol. 11.8 fl (6.2-12.0); Monocyte# 0.55 X10^3/uL; NRBC Flagged by Analyzer 0 % (0-5); Neutrophil # 5.68 X10^3/uL (2.7-7.7); Neutrophil % 61.9 % (47-70); Platelet Count 280 K/mm3 (150-450); RBC Distribution Width CV 13.2 % (11.6-14.6); RBC Distribution Width SD 42.1 fl (35.1-43.9); Red Blood Count 4.65 M/mm3 (4.2-5.4); White Blood Count 9.2 K/mm3 (4.4-11.0)
[2024-10-05 13:26] LABS: ALB/GLOB Ratio 1.2 RATIO (0.9-2.4); AST(SGOT) 32 U/L (<=31); Alanine Aminotransfer ALT/SGPT 45 U/L (<=34); Alkaline Phosphatase 95 U/L (35-104); Anion Gap 12 (5-15); BUN 9 mg/dL (4-19); BUN/Creat Ratio 14.4 RATIO (10-20); Calcium,Total 9.5 mg/dL (7.6-11.0); Carbon Dioxide 22.4 mmol/L (21.0-32.0); Chloride 105 mmol/L (98-108); Cholesterol 139 mg/dL (<=200); Creatinine, Serum 0.66 mg/dL (0.70-1.20); EST Glomerular Filtration Rate 114 (>60); Globulin 3.4 g/dL (2.2-4.2); Glucose 129 mg/dL (70-99); High Density Lipoprotein 32 mg/dL; Low Density Lipoprotein Calc. 79 mg/dL; Potassium 3.7 mmol/L (3.3-5.1); Protein, Total 7.4 g/dL (5.9-8.4); Sodium Level 139 mmol/L (133-145); Thyroid Stim Hormone (TSH) 0.573 uIU/mL (0.300-4.200); Triglycerides 142 mg/dL; Very Low Density Lipoprotein 28 mg/dL (5-40); Vitamin D,25 Hydroxy 36.6 ng/mL (30-100)
== END | disposition home or self-care (01) ==
LOC: MFPLAB 08:07
PROVIDERS: PCP Family Medicine; Referring Provider Family Medicine; Visit Provider Family Medicine
DX: E11.9 Type 2 diabetes mellitus without complications (principal); Z13.220 Encounter for screening for lipoid disorders; E03.9 Hypothyroidism, unspecified; R55 Syncope and collapse
CPT/HCPCS: 36415; 80053; 80061; 82306; 83036; 84443; 85025

== ENCOUNTER → 2024-11-17 | Outpatient (CLI) | payer OTHER, SELFPAY ==
[2024-11-21 16:09] LABS: HPV APTIMA, High Risk Negative (Negative)
== END | disposition home or self-care (01) ==
LOC: BWCLAB 11:13
PROVIDERS: PCP Family Medicine; Referring Provider Nurse Practitioner Family; Visit Provider Nurse Practitioner Family
DX: Z12.4 Encounter for screening for malignant neoplasm of cervix (principal)
CPT/HCPCS: 87624; 88175; G0145

== ENCOUNTER → 2024-11-25 | Outpatient (CLI) | payer OTHER, SELFPAY ==
--- NOTE | 2024-11-25 10:48 | RAD_ITS ---
PROCEDURE: CHEST PA AND LATERAL 11/25/2024 REASON FOR EXAM: COUGH TECHNIQUE: CHEST PA AND LATERAL COMPARISON: Chest x-ray study dated 02/24/2024 FINDINGS: Hardware: None Heart: Heart size and configuration are within normal limits. Mediastinum: Pulmonary vasculature and hilar structures are unremarkable. Trachea is midline. Mediastinal silhouette is within normal limits. Lungs: Lungs are expanded and clear without evidence of atelectasis, consolidation, effusion or pneumonic infiltrate. Bones: No acute abnormality is seen RAD/Chest PA and Lateral IMPRESSION: No acute cardiopulmonary process is identified radiographically. Reading Location: [id number]
== END | disposition home or self-care (01) ==
LOC: MTRAD 10:46
PROVIDERS: PCP Family Medicine; Referring Provider Physician Assistant Surgical; Visit Provider Physician Assistant Surgical
DX: R05.9 Cough, unspecified (principal)
CPT/HCPCS: 71046

== ENCOUNTER → 2025-01-05 | Outpatient (CLI) | payer OTHER, SELFPAY | END | disposition home or self-care (01) | LOC: MFPLAB 08:56 | PROVIDERS: PCP Family Medicine; Referring Provider Family Medicine; Visit Provider Family Medicine | DX: E03.9 Hypothyroidism, unspecified (principal); E11.9 Type 2 diabetes mellitus without complications | CPT/HCPCS: 36415; 83036; 84443 ==

== ENCOUNTER → 2025-02-02 | Outpatient (CLI) | payer OTHER, SELFPAY ==
--- OUTSIDE RECORDS SUMMARY | 2025-02-02 07:08 | XMS RPT_ITS | CCD ---
Author Organization [facility] CliniSymi Care Team Providers Care Arrt Technologist Name Role Phone NO REFERRING DR Unavailable Unavailable [employer] Unavailable Unavailable UNKNOWN, PROVIDER Unavailable Unavailable BEVERLEY ALEMAN Unavailable Unavailable PROVIDER, UNKNOWN Unavailable Unavailable No, PCP Unavailable Unavailable (Historical), No Pcp Primary Care Provider Unava ilable (Historical), No Pcp Primary Care Provider Unava ilable PREET SAUCEDO Attending Unavailable DO Kelsie Casey Primary Care Provider DO Kelsie Casey Referring Provider KEATON Higuera Attending Provider Alex Etienne MD Primary Care Provider Alex Etienne MD Referring Provider Dane Quiñones Attending Provider Jessy Hu Attending Provider Alex Etienne MD Attending Provider Alex Etienne MD Primary Care Provider Alex Etienne MD Referring Provider Omid Farrell Attending Provider Omid Farrell Referring Provider Fabiola Mohamud Attending Provider Alex Etienne MD Primary Care Provider Alex Etienne MD Attending Provider Alex Etienne MD Referring Provider Kelley Vilchis Attending Provider Kelley Vilchis Referring Provider Dane Quiñones Attending Provider Dane Quiñones Referring Provider [phone] Jaimie REAGAN, Alex Primary Care Provider Jaimie REAGAN, Alex Referring Provider Jaimie REAGAN, Alex Attending Provider Dr. Kailey Huerta DC Attending Provider [phone] Jaimie, Etienneon Attending Unavailable Jaimie, Chalon Primary Care Unavailable Jaimie, Chalon Referring Unavailable Dane Quiñones Attending Unavailable Jaimie, Chalon Primary Care Unavailable Jaimie, Chalon Referring Unavailable Kelley Higuera Attending Unavailable Jaimie, Chalon Primary Care Unavailable Jaimie, Chalon Referring Unavailable Hermelinda NOEL, Arden Heath Attending Unavailable Jaimie, Chalon Referring Unavailable Jaimie, Chalon Primary Care Unavailable Silvino JACKMAN, Dane Attending Unavailable Jaimie, Chalon Referring Unavailable Jaimie, Chalon Primary Care Unavailable Jaimie, Chalon Referring Unavailable Jaimie, Chalon Primary Care Unavailable Fabiola Landry Attending Unavailable Jaimie, Chalon Referring Unavailable Omid Farrell Attending Unavailable Jaimie, Chalon Primary Care Unavailable Jaimie, Chalon Primary Care Unavailable Jaimie, Chalon Referring Unavailable Omid Farrell Attending Unavailable Jaimie, Chalon Referring Unavailable Jaimie, Chalon Primary Care Unavailable Jessy Younger Attending Unavailable Dane Quiñones Attending Unavailable Jaimie, Chalon Referring Unavailable Jaimie, Chalon Primary Care Unavailable Jaimie, Chalon Referring Unavailable Jaimie, Chalon Attending Unavailable Jaimie, Chalon Primary Care Unavailable Jaimie, Chalon Primary Care Unavailable Kelley Higuera Referring Unavailable Kelley Higuera Attending Unavailable Jaimie, Chalon Primary Care Unavailable Omid Farrell Attending Unavailable Omid Farrell Referring Unavailable Jaimie, Chalon Referring Unavailable Jaimie, Etienneon Attending Unavailable Jaimie, Chalon Primary Care Unavailable Slivino JACKMAN, Dane Referring Unavailable Dane Quiñones Attending Unavailable Jaimie, Chalon Primary Care Unavailable Kelley Higuera Attending Unavailable Jaimie, Chalon Primary Care Unavailable Kelley Higuera Referring Unavailable Jaimie, Chalon Primary Care Unavailable Jaimie, Chalon Referring Unavailable Jaimie, Chalon Attending Unavailable Omid Farrell Attending Unavailable Jaimie, Chalon Primary Care Unavailable Omid Farrell Referring Unavailable Jaimie, Chalon Primary Care Unavailable Alex Etienne Referring Unavailable Kailey Huerta Attending Unavailable Medications Current Medications Medication Drug Class(es) Dates Sig (Normalized) Sig (Original) biotin 1 mg oral capsule (13 sources) Start: 08-27-2023 take 1 capsule by mouth once daily Biotin 1 mg capsule Active 1 mg PO DAILY August 27, 2023 12:00am BIOTIN ORAL Take by mouth. 0 Active Comment on above: Take by mouth. cholecalciferol 0.05 mg oral capsule (10 sources) Vitamin D Start: 024 take 1 capsule by mouth once daily Cholecalciferol (Vitamin D3) 50 mcg (2,000 unit) capsule Active 50 ug PO DAILY August 27, 2023 12:00am dextromethorphan hydrobromide 15 mg / guaiFENesin 400 mg / pseudoephedrine hydrochloride 60 mg oral tablet (13 sources) alpha-Adrenergic Agonist, Uncompetitive K-tdjacx-O-aspartate Receptor Antagonist, Sigma-1 Agonist Start: 025 take 4 tablets by mouth every twenty-four hours as needed Fsewkzsvkacevlj-Oa-Ek aifenesin (Capmist Dm) 60-15-400 mg tablet Active 1 {tbl} PO EVERY 4-6 HOURS as needed for cold symptoms 0 November 25, 2024 12:00am do not exceed 4 doses per 24 hrs Start: 05-20-2024 End: 09-23-2024 take 4 tablets by mouth every twenty-four hours as needed Tlkwyjbpuygizwu-Lf-Ycagyhhcudj (Capmist Dm) 60-15-400 mg tablet Discontinued 1 {tbl} PO EVERY 4-6 HOURS as needed for cold symptoms 20 0 May 20, 2024 1:00am September 23, 2024 2:41pm do not exceed 4 doses per 24 hrs Lactobacillus Combination No.4 (Probiotic) 3 billion cell capsule (10 sources) Start: 08-27-2023 take 3 capsules by mouth once daily Lactobacillus Combination No.4 (Probiotic) 3 billion cell capsule Active 3000 NMA PO DAILY August 27, 2023 12:00am administer with a meal Start: 08-27-2023 take 3 capsules by m outh once daily Lactobacillus Combination No.4 (Probiotic) 3 billion cell capsule Active 3000 MMU CELLS PO DAILY August 27, 2023 12:00am administer with a meal levonorgestrel 0.112760 mg/hr intrauterine system (20 sources) Progestin, Progestin-containing Intrauterine Device Start: 03-25-2019 End: 10-31-2024 Levonorgestrel (Mirena) 20 mcg/24 hours (5 yrs) 52 mg intrauterine device Active 1 NMA INTRA-UTER ONCE March 25, 2019 1:00am Start: 03-25-2019 Levonorgestrel (Mirena) 20 mcg/24 hours (5 yrs) 52 mg intrauterine device Active 1 DEVICE INTRA-UTER ONCE March 25, 2019 1:00am Comment on above: 1 Each by INTRAUTERI NE route as directed. levothyroxine sodium 0.112 mg oral capsule (20 sources) l-Thyroxine Start: 09-23-2024 Levothyroxine 112 mcg capsule Active 125 ug PO DAILY September 23, 2024 2:39pm Start: 08-27-2023 End: 09-23-2024 take 1 capsule by mouth once daily Levothyroxine 112 mcg capsule Discontinued 112 ug PO DAILY August 27, 2023 12:00am September 23, 2024 2:41pm Start: 08-24-2021 levothyroxine (SYNTHROID) 88 mcg tablet 200 mcg. 0 08/24/2021 Active Start: 08-24-2021 levothyroxine (SYNTHROID) 88 mcg tablet Comment on above: 200 mcg. metFORMIN hydrochloride 500 mg oral tablet (8 sources) Biguanide Start: 09-24-19 25 take 1 tablet by mouth once daily Metformin 500 mg tablet Active 500 mg PO daily September 23, 2024 12:00am phentermine hydrochloride 37.5 mg oral capsule (18 sources) Sympathomimetic Amine Anorectic Start: 09-24-19 take 1 capsule by mouth once daily Phentermine 37.5 mg capsule Active 37.5 mg PO daily September 23, 2024 12:00am Start: 08-27-2023 End: 09-10-2023 take 1 tablet by mouth once daily 30 minutes after breakfast Phentermine (Adipex-P) 37.5 mg tablet Discontinued 37.5 mg PO DAILY August 27, 2023 12:00am September 10, 2023 3:04pm must administer 30 minutes before or 1-2 hours after breakfast psyllium 400 mg oral capsule (10 sources) Start: 08-27-2023 Psyllium Husk (Daily Fiber) 0.4 gram capsule Active 0.4 g PO DAILY August 27, 2023 12:00am Semaglutide (8 sources) Start: 09-23-2024 Semaglutide (O zempic) 0.25 mg or 0.5 mg (2 mg/3 mL) pen injector Active mg SC September 23, 2024 12:00am Start: 09-23-2024 Semaglutide (O zempic) 0.25 mg or 0.5 mg (2 mg/3 mL) pen injector Discontinued mg SC September 23, 2024 12:00am Vitamin B Complex (1 source) Start: 08-27-2023 take 1 tablet by justino once daily Vitamin B Complex Active 1 TABLET PO DAILY August 27, 2023 12:00am Completed/Discontinued Medications Medication Drug Class(es) Dates Sig (Normalized) Sig (Original) amoxicillin 875 mg / clavulanate 125 mg oral tablet (4 sources) Penicillin-class Antibacterial Start: 11-25-2024 End: 12-05-2024 Amoxicillin-Pot Clavulanate 875-125 mg tablet Discontinued 1 {tbl} PO Q12H 20 10 0 November 25, 2024 12:00am December 04, 2024 12:00am December 05, 2024 12:07am Acute sinusitis, unspecified ascorbic acid 500 mg oral capsule (13 sources) Vitamin C Start: 08-27-2023 End: 09-10-2023 Ascorbic Acid (Vitamin C) 500 mg capsule Discontinued mg PO August 27, 2023 12:00am September 10, 2023 3:04pm Start: 08-27-2023 Ascorbic Acid (Vitamin C) Active MG PO August 27, 2023 12:00am ascorbic acid (V ITAMIN C ORAL) Take by mouth. 0 Active Comment on above: Take by mouth. betamethasone 0.5 mg/ml / clotrimazole 10 mg/ml topical cream (1 source) Azole Antifungal, Corticosteroid Start: 2018 End: 2021 clotrimazole-betamethas one (LOTRISONE) cream Indications: Acute vaginitis Apply 1 application to affected area twice daily. 15 g 2 01/20/2019 08/28/2021 Discontinued (Other) Comment on above: Apply 1 application to affected area twice daily. bifidobacterium animalis [id number] unt / bifidobacterium longum [id number] unt / lactobacillus acidophilus [id number] unt oral capsule (1 source) Start: 2018 End: 2021 take 1 capsule by mouth once daily L.acidoph-B.lactis-B.lo ngum (FLORAJEN3) 460 mg (7.5-6- 1.5 bill. cell) cap Take 1 capsule by mouth once daily. 30 capsule 1 03/28/2019 08/28/2021 Discontinued (Other) Comment on above: Take 1 capsule by [facility] once daily. 24 hr buPROPion hydrochloride 150 mg extended release oral tablet (2 sources) Aminoketone take 1 tablet by mouth once daily buPROPion XL (WELLBUTRIN XL) 150 mg 24 hr tablet Take 150 mg by mouth once daily. 0 Active Comment on above: Take 150 mg by mouth once daily. 12 hr buPROPion hydrochloride 90 mg / naltrexone hydrochloride 8 mg extended release oral tablet (1 source) Opioid Antagonist, Aminoketone Start: 2019 End: 2021 take 1 tablet by mouth once daily, then take 2 tablets by mouth once daily, then take 2 tablets by mouth in the morning, then take 1 tablet by mouth once daily in the evening CONTRAVE 8-90 mg TAKE 1 TABLET BY MOUTH DAILY FOR 1 WEEK THEN TAKE 2 TABS DAILY FOR 1 WEEK THEN TAKE 2 TABS IN THE AM AND 1 TAB IN THE PM DAILY FOR 1 WEEK TH 0 09/05/2019 08/28/2021 Discontinued (Other) Comment on above: TAKE 1 TABLET BY [facility] DAILY FOR 1 WEEK THEN TAKE 2 TABS DAILY FOR 1 WEEK THEN TAKE 2 TABS IN THE AM AND 1 TAB IN THE PM DAILY FOR 1 WEEK TH cyclobenzaprine hydrochloride 10 mg oral tablet (20 sources) Muscle Relaxant Start: 2017 End: 2018 take 1 tablet by mouth three times daily as needed for muscle spasms Cyclobenzaprine 10 MG tablet Discontinued 10 mg PO THREE TIMES A DAY as needed for Muscle Spasm 20 0 March 08, 2018 12:00am March 25, 2019 5:17pm ergocalciferol, vitamin D2, (VITAMIN D2 ORAL) (3 sources) ergocalciferol, vitamin D2, (VITAMIN D2 ORAL) Take by mouth. 0 Active Comment on above: Take by mouth. ferrous sulfate (3 sources) ferrous sulfate (IRON ORAL) Take by mouth. 0 Active Comment on above: Take by mouth. methylPREDNISolone 4 mg oral tablet (4 sources) Corticosteroid Start: 2024 End: 2024 take 1 tablet by mouth once Methylprednisolone (Medrol (Velasquez)) 4 mg tablets,dose pack Discontinued 4 mg PO per package directions 21 6 0 November 25, 2024 12:00am November 30, 2024 12:00am December 01, 2024 12:09am naproxen 500 mg oral tablet (20 sources) Nonsteroidal Anti-inflammatory Drug Start: 2017 End: 2018 take 1 tablet by mouth twice daily Naproxen 500 MG tablet Discontinued 500 mg PO TWICE A DAY March 08, 2018 12:00am March 25, 2019 5:17pm nystatin 100 unt/mg topical powder (20 sources) Polyene Antifungal Start: 2024 End: 2024 Nystatin 100,000 unit/gram powder Discontinued 1 NMA TOPICAL THREE TIMES A DAY as needed September 23, 2024 2:40pm November 25, 2024 10:44am Start: 06-18-2024 End: 09-23-2024 Nystatin 100,000 unit/gram c ream Active 1 NMA TOPICAL THREE TIMES A DAY as needed September 23, 2024 2:40pm Nystatin 100,000 unit/gram powder (9 sources) Start: 06-18-2024 End: 09-23-2024 Nystatin 100,000 unit/gram p owder Discontinued 1 NMA TOPICAL THREE TIMES A DAY 60 3 June 18, 2024 1:00am September 23, 2024 2:41pm Start: 06-18-2024 End: 09-23-2024 Nystatin 100,000 unit/gram p owder Discontinued 1 NMA TOPICAL THREE TIMES A DAY 60 June 18, 2024 1:00am September 23, 2024 2:41pm Start: 06-18-2024 Nystatin 100,0 00 unit/gram powder Active 1 NMA TOPICAL THREE TIMES A DAY 60 June 18, 2024 1:00am psyllium seed, with dextrose, (FIBER ORAL) (3 sources) psyllium seed, w ith dextrose, (FIBER ORAL) Take by mouth. 0 Active Comment on above: Take by mouth. Vitamin B Complex tablet (9 sources) Start: 08-27-2023 End: 09-23-2024 Vitamin B Complex tablet Discontinued 1 {tbl} PO DAILY August 27, 2023 12:00am September 23, 2024 2:41pm Start: 08-27-2023 Vitamin B Comp dinora tablet Active 1 {tbl} PO DAILY August 27, 2023 12:00am Problems Active Problems Problem Classification Problem Date Documented Da te Episodic/Chronic Acute bronchitis (6 sources) Acute bronchitis; Translations: [Acute bronchitis, unspecified] 11-25-2024 Episodic Anxiety disorders (10 sources) Mixed anxiety and depressive disorder; Translations: [Other specified anxiety disorders] 08-27-2023 Chronic Cancer of cervix (17 sources) Atypical squamous cells of undetermined significance on cervical Papanicolaou smear; Translations: [Atypical squamous cells of undetermined significance on cytologic smear of cervix (ASC-US)] 08-27-2023 Episodic Comment on above: 2022, 2019, 2018 2022, 2019, 2018; HP V positive prior. Contraceptive and procreative management (11 sources) Intrauterine contraceptive device in situ; Translations: [Encounter for routine checking of intrauterine contraceptive device] 08-27-2023 Episodic Comment on above: Placed 2021 (Per Pat ient). Diabetes mellitus without complication (1 source) Type 2 diabetes mellitus without complications; Translations: [Type 2 diabetes mellitus without complications] Onset: 10-18-2024 Chronic Headache; including migraine (9 sources) Migraine; Translations: [Migraine, unspecified, not intractable, without status migrainosus] 09-08-2023 Chronic Nonspecific chest pain (9 sources) Atypical chest pain; Translations: [Other chest pain] 02-24-2024 Episodic Osteoarthritis (9 sources) Osteoarthritis of right knee joint; Translations: [Unilateral primary osteoarthritis, right knee] 09-25-2023 Chronic Other bone disease and musculoskeletal deformities (9 sources) Chondromalacia; Translations: [Chondromalacia, unspecified knee] 09-25-2023 Episodic Other bone disease and musculoskeletal deformities (20 sources) Segmental and somatic dysfunction; Translations: [Segmental and somatic dysfunction of cervical region] 09-08-2023 Episodic Other bone disease and musculoskeletal deformities (1 source) Segmental and somatic dysfunction of cervical region; Translations: [Segmental and somatic dysfunction of cervical region] Onset: 01-12-2025 Episodic Other bone disease and musculoskeletal deformities (1 source) Segmental and somatic dysfunction of thoracic region; Translations: [Segmental and somatic dysfunction of thoracic region] Onset: 01-12-2025 Episodic Other circulatory disease (15 sources) Spider nevus; Translations: [Nevus, non-neoplastic] 09-23-2024 Episodic Other inflammatory condition of skin (12 sources) Intertrigo; Translations: [Erythema intertrigo] 06-18-2024 Episodic Other lower respiratory disease (9 sources) Cough; Translations: [Cough] 02-24-2024 Episodic Other nutritional; endocrine; and metabolic disorders (4 sources) Obese class I; Translations: [Obesity, unspecified] Onset: 08-28-2021 Chronic Other screening for suspected conditions (not mental disorders or infectious disease) (5 sources) Cancer cervix screening status; Translations: [Encounter for screening for malignant neoplasm of cervix] Onset: 10-24-2022 Episodic Other upper respiratory infections (17 sources) Acute upper respiratory infection; Translations: [Acute upper respiratory infection, unspecified] Onset: 11-25-2024 05-20-2024 Episodic Spondylosis; intervertebral disc disorders; other back problems (9 sources) Neck pain; Translations: [Cervicalgia] 09-14-2023 Episodic Substance-related disorders (3 sources) Nicotine dependence, cigarettes, uncomplicated; Translations: [Nicotine dependence, unspecified, uncomplicated] Onset: 01-18-2017 Chronic Thyroid disorders (11 sources) Hypothyroidism; Translations: [Hypothyroidism, unspecified] Onset: 01-11-2025 08-27-2023 Chronic Unclassified (1 source) Cough, unspecified; Translations: [Cough, unspecified] Onset: 11-30-2024 Past or Other Problems Problem Classification Problem Date Documented Date Episodic/Chronic Immunizations and screening for infectious disease (3 sources) Patient encounter status; Translations: [Encounter for screening for human papillomavirus (HPV)] Onset: 10-24-2022 Episodic Other connective tissue disease (7 sources) Muscle weakness (generalized); Translations: [Lateral epicondylitis, right elbow] Onset: 01-18-2017 Episodic Superficial injury; contusion (15 sources) Contusion of left forearm; Translations: [Contusion of left forearm, initial encounter] Onset: 09-08-2024 09-05-2024 Episodic Results Test Name Value Interpretation Reference Range Facility Chiropractic Reporton 2024 Chiropractic Report [facility] [address] [place] [address] OFFICE VISIT Date of Service: 01/12/25 MR#: [id number] Acct: [id number] Name: ANN FLORES Rep #: [id number] : 1985 Provider: STEPHANIE Simpson Age/Sex: 39/F Location: [facility] Status: Signed Intake Vital Signs 11/17/24 08:17 12/27/24 15:36 01/12/25 12:31 Height 5 ft 7 in 5 ft 7 in 5 ft 7 in Weight: 212 lb BMI 33.2 BP 122/86 H Intake Visit Reasons: REEVAL Chief Complaint: neck tightness Allergies No Known Allergies Allergy (Verified 01/12/25 12:29) Medications ???Medication ???Instructions ???Recorded ???Confirmed ???Type levonorgestrel (Mirena) 1 device intrauterine ONCE 9 01/12/25 History biotin 1 mg capsule 1 mg PO DAILY 08/27/23 01/12/25 Hi story cholecalciferol (vitamin D3) 50 50 mcg PO DAILY 08/27/23 01/12/25 History mcg (2,000 unit) capsule lactobacillus combination no.4 3 3,000 mmu cells PO DAILY 08/27/23 01/12/25 History billion cell capsule (Probiotic) psyllium husk 0.4 gram capsule 0.4 g PO DAILY 08/27/23 01/12/25 H istory (Daily Fiber) levothyroxine 112 mcg capsule 125 mcg PO DAILY 09/23/24 01/12/25 History metformin 500 mg tablet 500 mg PO QDAY 09/23/24 01/12/25 H istory nystatin 100,000 unit/gram topical 1 applic topical TID PRN 2 5 01/12/25 History cream phentermine 37.5 mg capsule 37.5 mg PO QDAY 09/23/24 01/12/25 History semaglutide 0.25 mg or 0.5 mg (2 mg subcut 09/23/24 01/12/25 Histor y mg/3 mL) subcutaneous pen injector (Ozempic) pseudoephedrine 60 mg-DM 15 1 tab PO Q4-6H PRN cold symptoms 0 11/25/24 01/12/25 Rx mg-guaifenesin 400 mg tablet #20 tabs (Capmist DM) PFSH Medical History Contusion of left forearm Atypical chest pain Cough Hypothyroidism Back pain Knee pain Migraines Fatigue Shoulder pain Surgical History S/P LEEP Hx of section Family History Grandmother Cancer Mother Hypertension Aunt Diabetes Grandfather Skin cancer Father CVA (cerebral vascular accident) Social History Smoking Status: Former smoker alcohol intake: current alcohol intake frequency: holidays/special occasions only substance use type: does not use caffeine: Yes what type of physical activity do you participate in: walking and aerobics frequency: 1-2 times per week seatbelt use: always do you feel safe at home: Yes additional social history: - Donato HPI REEVAL Chief Complaint: neck discomfort Visit Number: 1 Details: Ann Flores a 39 year old female is here today for a re-evaluation of neck pain. Pt. advises she has been experiencing more frequent neck tension. She states the tension often causes TAPIA's. When she has a headache she gets a "heavy" sensation in her neck. She states her neck discomfort extends into her upper back and across her shoulder blades equally. She denies new injury, numbness, tingling or radiculopathy. She states the change in weather and sleeping wrong on her neck tend to trigger her pain. She treats the pain at home with Nurtec and massages. She reports chiropractic adjustments are effective in relieving her pain and discomfort but it gradually returns. Location: neck, upper back Duration: intermittent Aggravating or associated factors: ROM, work, sleeping positions Relieving factors: chiro Pain Quality: aching and dull Exam Musc General: Yes normal posture, normal gait, joint tenderness and decreased range of motion; No muscle weakness Cervical Spine: Yes loss of normal cervical lordosis, Yes cervical muscular tenderness bilateral diffuse , Yes pain with cervical ROM with rotation to right, Yes cervical spasm bilateral diffuse trapezius, paracervical muscles and intrinsics and Yes misalignment misalignment: C1, C6 and C7 Thoracic/Lumber: No thoracic and lumbar spine normal to inspection (anterior head carriage), No pain with thoraco-lumbar ROM, Yes paraspinal tenderness bilaterally in the upper thoracic and in the mid thoracic, Yes thoraco-lumbar spasm bilaterally (trap, levator with mild edema at CTjunxt) in the upper thoracic and in the mid thoracic and Yes misalignment T1, T2, T5 and T6 Neuro General: patient alert, patient awake, patient oriented x3, normal light touch, pain and propioception and no focal motor deficits Cognition: normal cognition Speech: speech normal Gait: normal gait Motor: muscle tone normal throughout Sensory Exam: no sensory deficits noted Ortho Test CERVICAL Compression pain: Negative Distraction pain: relief Michael's pain: Negative Valsalvas: Negative Shou (more content not included)... Normal [facility] Hemoglobin A1con 01-05-2025 HbA1c (Bld) [Mass fraction] 6.5 % High <=5.6 [facility] Comment on above: Order Comment: Order Date: 12/15/24Order Info: [id number] - A1C Result Comment: Norm al < 5.7 % Prediabetic 5.7 - 6.4 % Diabetic >or= 6.5 % Please note range changes. Performed By: #### L [id number], [id number] ####[facility] [id number] [place], [address] Hemoglobin A1c percentageOrd ered By: Alex Etienne on 01-05-2025 HbA1c (Bld) [Mass fraction] 6.5 % High <5.7 [facility] Comment on above: Normal < 5.7 % Predi abetic 5.7 - 6.4 % Diabetic >or= 6.5 % Please note range changes. TSH DL <= 0.005 mIU/L QnOrde red By: Alex Etienne on 01-05-2025 TSH Qn 0.325 uIU/mL 0.300-4.200 [facility] Thyroid Stim Hormone (TSH)on 01-05-2025 TSH 0.325 uIU/mL Normal 0.300-4.200 [facility] Comment on above: Order Comment: Order Date: 12/15/24Order Info: [id number] - TSH Performed By: #### L [id number], [id number] ####[facility] [id number] [facility]. [place], [place], [address] Chest PA and Lateralon 11-25 Chest PA and Lateral [facility] [address] [place], [place] [address] Chest PA and Lateral MR#: [id number] Acct: [id number] Name: ANN FLORES Rep #: [id number] : 1985 F 39 From: Nery Hickey PCP: Dr. Alex Etienne MD Status: REG CLI Study: Chest PA and Lateral Date of Exam: 11/25/24 Exam# [id number] Ordering Dr: Dane Dubois PA PROCEDURE: CHEST PA AND LATERAL 11/25/2024 REASON FOR EXAM: COUGH TECHNIQUE: CHEST PA AND LATERAL COMPARISON: Chest x-ray study dated 02/24/2024 FINDINGS: Hardware: None Heart: Heart size and configuration are within normal limits. Mediastinum: Pulmonary vasculature and hilar structures are unremarkable. Trachea is midline. Mediastinal silhouette is within normal limits. Lungs: Lungs are expanded and clear without evidence of atelectasis, consolidation, effusion or pneumonic infiltrate. Bones: No acute abnormality is seen RAD/Chest PA and Lateral IMPRESSION: No acute cardiopulmonary process is identified radiographically. Reading Location: [id number] CC: GASPER Orellana; Dr. Alex Etienne MD [employer] Project Planner: Signed Normal [facility] Urgent Care Visit Reporton 0 11-25-2024 Urgent Care Visit Report [facility] [address], [address] [place], [place] [address] OFFICE VISIT Date of Service: 11/25/24 MR#: [id number] Acct: [id number] Name: ANN FLORES Rep #: [id number] : 1985 Provider: GASPER Orellana Age/Sex: 39/F Location: [facility] Status: Signed Intake Vital Signs 11/17/24 08:17 11/25/24 10:43 Height 5 ft 7 in Weight: 219 lb 6 oz BMI 34.3 BP 126/79 H 118/76 Blood Pressure Location Lt brachial Position Sitting Respiration 16 Pulse 87 Pulse Source NIBP Temp 97.8 F Temp Source Oral Pulse Oximetry (%) 97 Oxygen Delivery Method room air Intake Visit Reasons: Cough Chief Complaint: TAPIA, congestion, cough, chest tightness Upper Stitcher Required: No Is patient in pain?: No Allergies No Known Allergies Allergy (Verified 11/25/24 10:44) Medications ???Medication ???Instructions ???Recorded ???Confirmed ???Type levonorgestrel (Mirena) 1 device intrauterine ONCE 9 11/17/24 History biotin 1 mg capsule 1 mg PO DAILY 08/27/23 11/17/24 Hi story cholecalciferol (vitamin D3) 50 50 mcg PO DAILY 08/27/23 11/17/24 History mcg (2,000 unit) capsule lactobacillus combination no.4 3 3,000 mmu cells PO DAILY 08/27/23 11/17/24 History billion cell capsule (Probiotic) psyllium husk 0.4 gram capsule 0.4 g PO DAILY 08/27/23 11/17/24 H istory (Daily Fiber) levothyroxine 112 mcg capsule 125 mcg PO DAILY 09/23/24 11/17/24 History metformin 500 mg tablet 500 mg PO QDAY 09/23/24 11/17/24 H istory nystatin 100,000 unit/gram topical 1 applic topical TID PRN 5 11/17/24 History cream phentermine 37.5 mg capsule 37.5 mg PO QDAY 09/23/24 11/17/24 History semaglutide 0.25 mg or 0.5 mg (2 mg subcut 09/23/24 11/17/24 Histor y mg/3 mL) subcutaneous pen injector (Ozempic) amoxicillin 875 mg-potassium 1 tab PO Q12H 10 days #20 tabs 11/25/24 Rx clavulanate 125 mg tablet methylprednisolone 4 mg tablets in 4 mg PO PER PKG DIR 6 days #21 t abs 11/25/24 11/25/24 Rx a dose pack (Medrol (Velasquez)) pseudoephedrine 60 mg-DM 15 1 tab PO Q4-6H PRN cold symptoms 0 11/25/24 11/25/24 Rx mg-guaifenesin 400 mg tablet #20 tabs (Capmist DM) Is last menstrual period known: No Post menopausal: No Patient : No Have you fallen in the past year?: No Nurse's Note: TAPIA, congestion, cough, chest tightness x 10 days worsening. denies fever, ST, ear pain. denies lung hx. PFSH Medical History Contusion of left forearm Atypical chest pain Cough Hypothyroidism Back pain Knee pain Migraines Fatigue Shoulder pain Surgical History S/P LEEP Hx of section Family History Grandmother Cancer Mother Hypertension Aunt Diabetes Grandfather Skin cancer Father CVA (cerebral vascular accident) Social History Smoking Status: Former smoker alcohol intake: current alcohol intake frequency: holidays/special occasions only substance use type: does not use caffeine: Yes what type of physical activity do you participate in: walking and aerobics frequency: 1-2 times per week seatbelt use: always do you feel safe at home: Yes additional social history: - Donato HPI HPI Chief Complaint: TAPIA, congestion, cough, chest tightness Details: ANN FLORES, is a 39 F who presents to the office today for complaint of headache, congestion, cough and ear pressure for the past 10 days. Patient states the cough has worsened recently. No fever, chills or sweats. No nausea, vomiting or diarrhea. No other associated symptoms or alleviating/aggravati ng factors. ROS Const Constitutional: No other (As above) Exam Const General: cooperative and well developed HENMT Head: normal to inspection and atraumatic Ears: hearing grossly normal bilaterally Nose: nasal discharge clear Face and sinus: normal facial exam Mouth: oral mucosae normal Throat: abnormal tonsil bilaterally hypertrophy 1+ Resp Effort Inspection: normal respiratory effort and no audible wheezes Auscultation: Bilateral: Clear to Auscultation Cardio Palpation: normal PMI Rate: regular rate Rhythm: regular rhythm Neuro General: patient alert and CN's II-XI intact bilaterally Psych Appearance: grossly normal Mental Status: mental status grossly normal Coding Level of Care Code Off vis,est,level 4 Diagnoses Acute bronchitis J20.9 Acute sinusitis J01.90 Assessment and Plan Assessment and Plan (1) Acute bronchitis: Status: Acute (2) Acute sinusitis: Status: Acute Orders: Orders Chest PA and Lateral Today R05.9 - Cough, unspecified (more content not included)... Normal [facility] PAP IG HPV APTIMA 16/18,45on 11-21-2024 ADEQ Comment Normal . [facility] Comment on above: Order Comment: Alexandra nelson Comment: [id number] Comment: No. of containers..01 ThinPrep Vial Result Comment: Sati sfactory for evaluation. No endocervical component is identified. Performed By: #### L 7400.0280 ####[facility] [address] [place], [place], [id number] COMM . Normal . [facility] Comment on above: Order Comment: Alexandra nelson Comment: [id number] Comment: No. of containers..01 ThinPrep Vial Performed By: #### L 7400.0280 ####[facility] [address] [place], [place], [id number] COMMENT Comment Normal . [facility] Comment on above: Order Comment: Alexandra nelson Comment: [id number] Comment: No. of containers..01 ThinPrep Vial Result Comment: This liquid based ThinPrep(R) pap test was screened with the use of an image guided system. Performed By: #### L 7400.0280 ####[facility] [address] [place], [place], [address] DIAG Comment Normal . [facility] Comment on above: Order Comment: Speci men Comment: [id number] Comment: No. of containers..01 ThinPrep Vial Result Comment: NEGA TIVE FOR INTRAEPITHELIAL LESION OR MALIGNANCY. Performed By: #### L 7400.0280 ####[facility] [address] [place], [address] HPV APTIMA, HR Negative Normal Negative [facility] Comment on above: Order Comment: Speci men Comment: [id number] Comment: No. of containers..01 ThinPrep Vial Result Comment: This nucleic acid amplification test detects fourteen high- risk HPV types (16,18,31,33,35,39,45,51,52,56,58,59,66,68) without differentiation. Performed By: #### L 7400.0280 ####[facility] [address] [place], [place], [id number] HPV Lizabeth Rfx Comment Normal . [facility] Comment on above: Order Comment: Speci men Comment: [id number] Comment: No. of containers..01 ThinPrep Vial Result Comment: Crit eria not met, HPV Genotype not performed. Performed at: - [address] [id number] Dry Plasterer Helper: Aruna Meehan MD, Phone: [phone] Performed at: = - [facility], [place] [id number] Dry Plasterer Helper: Aruna Meehan MD, Phone: [phone] Performed By: #### L 7400.0280 ####[facility] [address] [place], [place], [address] PAPSMR Comment Normal . [facility] Comment on above: Order Comment: Speci men Comment: [id number] Comment: No. of containers..01 ThinPrep Vial Result Comment: The Pap smear is a screening test designed to aid in the detection of premalignant and malignant conditions of the uterine cervix. It is not a diagnostic procedure and should not be used as the sole means of detecting cervical cancer. Both false-positive and false-negative reports do occur. Performed By: #### L 7400.0280 ####[facility] [address] [place], [place], [id number] PERFORM Comment Normal . [facility] Comment on above: Order Comment: Speci men Comment: [id number] Comment: No. of containers..01 ThinPrep Vial Result Comment: Roma Kwan, Director Of Restaurant (ASCP) Performed By: #### L 7400.0280 ####[facility] [address] [place], [place], [phone] Cervical or vaginal specimen microscopic examination by liquid based cytology (reportOrdered By: Kelley Higuera on 11-17-2024 Cytology report Cyto stain.thin prep Doc (Cvx/Vag) Comment . [facility] Comment on above: Criteria not met, HP V Genotype not performed.Performed at: - [address] [id number] Director: Aruna Meehan MD, Phone: [phone] at: =[facility] [address] [id number] Director: Aruna Meehan MD, Phone: [phone] Cervical or vagninal specime n microscopic examination by cytology stain (reported asOrdered By: Kelley Higuera on 11-17-2024 Cytology report Cyto stain Doc (Cvx/Vag) Comment . [facility] Comment on above: The Pap smear is a s creening test designed to aid in thedetection of premalignant and malignant conditions of theuterine cervix. It is not a diagnostic procedure andshould not be used as the sole means of detecting cervicalcancer. Both false-positive and false-negative reports dooccur. Detection in cervical specim en of any of human papilloma virus (HPV) 16, 18, 31, 33,Ordered By: Kelley Higuera on 11-17-2024 HPV 16+18+31+33+35+39+45+51+ 52+56+58+59+66+68 DNA Probe+sig amp Ql (Cvx) Negative Negative [facility] Comment on above: This nucleic acid am plification test detects fourteen high-risk HPV types (16,18,31,33,35,39,45,51,52,56,58,59,66,68)without differentiation. Laboratory - CytologyOrdered By: Kelley Higuera on 11-17-2024 Director Of Restaurant Cyto stain Nom (Cvx/Vag) [ID] Comment . [facility] Comment on above: Megha Rivera ytologist (ASCP) Laboratory - Miscellaneous t estsOrdered By: Kelley Higuera on 11-17-2024 Service comment (Unsp spec) [Interp] . . [facility] No Panel InformationOrdered By: Kelley Higuera on 11-17-2024 Pap Smear Specimen Adequacy Comment . [facility] Comment on above: Satisfactory for elina luation. No endocervical component is identified. 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) Upper Stitcher Required: No Is patient in pain?: No Allergies No Known Allergies Allergy (Verified 11/17/24 08:18) Medications ???Medication ???Instructions ???Recorded ???Confirmed ???Type levonorgestrel (Mirena) 1 device intrauterine ONCE 9 11/17/24 History biotin 1 mg capsule 1 mg PO DAILY 08/27/23 11/17/24 Hi story cholecalciferol (vitamin D3) 50 50 mcg PO DAILY 08/27/23 11/17/24 History mcg (2,000 unit) capsule lactobacillus combination no.4 3 3,000 mmu cells PO DAILY 08/27/23 11/17/24 History billion cell capsule (Probiotic) psyllium husk 0.4 gram capsule 0.4 g PO DAILY 08/27/23 11/17/24 H istory (Daily Fiber) levothyroxine 112 mcg capsule 125 mcg PO DAILY 09/23/24 11/17/24 History metformin 500 mg tablet 500 mg PO QDAY 09/23/24 11/17/24 H istory nystatin 100,000 unit/gram topical 1 applic topical TID PRN 5 11/17/24 History cream nystatin 100,000 unit/gram topical 1 applic topical TID PRN 5 11/17/24 History powder phentermine 37.5 mg capsule 37.5 mg PO QDAY 09/23/24 11/17/24 History semaglutide 0.25 mg or 0.5 mg (2 mg subcut 09/23/24 11/17/24 Histor y mg/3 mL) subcutaneous pen injector (Ozempic) Is last menstrual period known: No Post menopausal: No Patient : No : No Control Method: 2021 [facility] Medical History Contusion of left forearm Atypical chest pain Cough Hypothyroidism Back pain Knee pain Migraines Fatigue Shoulder pain Surgical History S/P LEEP Hx of section Family History Grandmother Cancer Mother Hypertension Aunt Diabetes Grandfather Skin cancer Father CVA (cerebral vascular accident) Social History Smoking Status: Former smoker alcohol intake: current alcohol intake frequency: holidays/special occasions only substance use type: does not use caffeine: Yes what type of physical activity do you participate in: walking and aerobics frequency: 1-2 times per week seatbelt use: always do you feel safe at home: Yes additional social history: - Donato History 2 Elective abortions Hx Para 2 Spontaneous abortions Hx # Term Pregnancies Ectopic pregnancies Hx # Pregnancies Multiple births # of living children Past Pregnancies Del. Date Name GA/Weeks Outcome Route Bth Weight Infant Gen Labor Lgth Anesthesia Del Locatn Provider FOB Unknown Samia Dueñas HPI Encounter for routine gynecological examination Details: ANN FLORES is a 39 year old who presents for annual exam. Continues with Mirena; 2021. No issues with this in place. Otherwise reports no issues or concerns. Last PAP: 2023; normal. HPV neg. History of abnormal PAP: yes; hx hpv + and leep. HPV(-) since. Last mammogram: 2023; normal. History of abnormal mammogram: no Colon cancer screening: age 44 Other preventative health care screenings: Alex Etienne; PCP Female Reproductive History Associated symptoms: Mirena IUD Questions: metorrhagia: No, sexually active: Yes, dyspareunia: No and PCB: No ROS Const Constitutional: Denies chills, fatigue, fever(s), headache(s) or weight loss Eyes Eyes: Denies change in vision ENT ENT: Denies dizziness Resp Resp: Denies cough GI GI: Denies abdominal pain, constipation or nausea : Denies difficulty voiding, dysuria, hematuria, nipple discharge, pelvic pain, prolapse symptoms, urinary incontinence, vaginal discharge, vaginal dryness, vaginal odor or vaginal pruritus Skin Skin/Breast: Denies alopecia, rash, breast mass, breast pain, breast skin changes or nipple discharge Neuro Neuro: Denies dizziness Psych Psych: Denies anxiety or depression Endo Endo: Denies cold intolerance, excessive sweating or heat intolerance Exam Const General: cooperative, healthy appearing, comfortable, no acute distress, well groomed and well hydrated Nutritional Appearance: well nourished Orientation: alert, awake and oriented x3 HENMT Head: normal to inspection and normocephalic Ears: hearing grossly normal bilaterally and external ears normal (more content not included)... Normal [facility] Absolute lymphocyte countOrd ered By: Alex Etienne on 10-05-2024 Lymphocytes Auto (Unsp spec) [#/Vol] 2.79 10*3/uL 0.83-4.51 [facility] Absolute neutrophil countOrd ered By: Alex Etienne on 10-05-2024 Neutrophils (Bld) [#/Vol] 5.7 10*3/uL 2.0-7.7 [facility] Anion gap in Serum or Plasma Ordered By: Alex Etienne on 10-05-2024 Anion gap [Moles/Vol] 12 mmol/L 5- [facility] Automated lymphocyte count a s percentage of total leukocytesOrdered By: Alex Etienne on 10-05-2024 Lymphocytes/100 WBC Auto (Unsp spec) 30.4 % [facility] BUN/creatinine ratioOrdered By: [facility] on 10-05-2024 Urea nitrogen/Creatinine [Mass ratio] 14.4 mg/mg - [facility] Basophil percentageOrdered B y: Alex Etienne on 10-05-2024 Basophils/100 WBC (Bld) 0.5 % 0-1 [facility] Bilirubin, totalOrdered By: Alex Etienne on 10-05-2024 Bilirubin [Mass/Vol] 0.40 mg/dL 0.00-1.30 [facility] CBC W/Diff, Automatedon 09-09 Absolute Lymph 2.79 X10 3/uL Normal 0.83-4.51 [facility] Comment on above: Order Comment: Order Date: 09/02/24Order Info: [id number] - CBCD Performed By: #### L 501.9520, L501.9985, L500.4050, L500.4100, L100.0100 ####[facility] [address] [place], [address] Absolute Neut 5.7 X10 3/uL Normal 2.0-7.7 [facility] Comment on above: Order Comment: Order Date: 09/02/24Order Info: [id number] - CBCD Performed By: #### L 501.9520, L501.9985, L500.4050, L500.4100, L100.0100 ####[facility] [address] [place], [address] Basophils/100 WBC (Bld) 0.5 % Normal 0-1 [facility] Comment on above: Order Comment: Order Date: 09/02/24Order Info: [id number] - CBCD Performed By: #### L 501.9520, L501.9985, L500.4050, L500.4100, L100.0100 ####[facility] [address] [place], [address] Eosinophils/100 WBC (Bld) 1.0 % Normal 0-5 [facility] Comment on above: Order Comment: Order Date: 09/02/24Order Info: [id number] - CBCD Performed By: #### L 501.9520, L501.9985, L500.4050, L500.4100, L100.0100 ####[facility] [address] [place], [address] Erythrocyte distribution width (RBC) [Ratio] 13.2 % Normal 11.6-14.6 [facility] Comment on above: Order Comment: Order Date: 09/02/24Order Info: [id number] - CBCD Performed By: #### L 501.9520, L501.9985, L500.4050, L500.4100, L100.0100 ####[facility] [address] [place], [address] Hematocrit (Bld) [Volume fraction] 40.9 % Normal 37-47 [facility] Comment on above: Order Comment: Order Date: 09/02/24Order Info: 0184-1 - CBCD Performed By: #### L 501.9520, L501.9985, L500.4050, L500.4100, L100.0100 ####[facility] [address] [place], [address] Hemoglobin (Bld) [Mass/Vol] 13.5 g/dL Normal 12.0-15.0 [facility] Comment on above: Order Comment: Order Date: 09/02/24Order Info: 0184-1 - CBCD Performed By: #### L 501.9520, L501.9985, L500.4050, L500.4100, L100.0100 ####[facility] [address], [address] IG% 0.200 Normal 0.0-0.9 [facility] Comment on above: Order Comment: Order Date: 09/02/24Order Info: [id number] - CBCD Result Comment: IG% - Immature Granulocytes (promyelocytes, myelocytes and metamyelocytes) > 1% indicates that a LEFT SHIFT is Present. Performed By: #### L 501.9520, L501.9985, L500.4050, L500.4100, L100.0100 ####[facility] [address] [place], [address] Lymphocytes/100 WBC (Bld) 30.4 % Normal 19-41 [facility] Comment on above: Order Comment: Order Date: 09/02/24Order Info: 0184-1 - CBCD Performed By: #### L 501.9520, L501.9985, L500.4050, L500.4100, L100.0100 ####[facility] [address] [place], [address] MCH (RBC) [Entitic mass] 29.0 pg Normal 27.0-32.0 [facility] Comment on above: Order Comment: Order Date: 09/02/24Order Info: [id number] - CBCD Performed By: #### L 501.9520, L501.9985, L500.4050, L500.4100, L100.0100 ####[facility] [address] [place], [address] MCHC (RBC) [Mass/Vol] 33.0 g/dL Normal 32-36 [facility] Comment on above: Order Comment: Order Date: 09/02/24Order Info: [id number] - CBCD Performed By: #### L 501.9520, L501.9985, L500.4050, L500.4100, L100.0100 ####[facility] [address] [place], [address] MCV (RBC) [Entitic vol] 88.0 fL Normal 81-99 [facility] Comment on above: Order Comment: Order Date: 09/02/24Order Info: [id number] - CBCD Performed By: #### L 501.9520, L501.9985, L500.4050, L500.4100, L100.0100 ####[facility] [address] [place], [address] Monocytes/100 WBC (Bld) 6.0 % Normal 0-10 [facility] Comment on above: Order Comment: Order Date: 09/02/24Order Info: [id number] - CBCD Performed By: #### L 501.9520, L501.9985, L500.4050, L500.4100, L100.0100 ####[facility] [address] [place], [address] Neutrophils/100 WBC (Bld) 61.9 % Normal 47-70 [facility] Comment on above: Order Comment: Order Date: 09/02/24Order Info: 0184-1 - CBCD Performed By: #### L 501.9520, L501.9985, L500.4050, L500.4100, L100.0100 ####[facility] [address] [place], [address] Nucleated RBC (Bld) [#/Vol] 0 10*3/uL Normal 0-5 [facility] Comment on above: Order Comment: Order Date: 09/02/24Order Info: 0184-1 - CBCD Performed By: #### L 501.9520, L501.9985, L500.4050, L500.4100, L100.0100 ####[facility] [address] [place], [address] Platelet mean volume (Bld) [Entitic vol] 11.8 fL Normal 6.2-12.0 [facility] Comment on above: Order Comment: Order Date: 09/02/24Order Info: 0184-1 - CBCD Performed By: #### L 501.9520, L501.9985, L500.4050, L500.4100, L100.0100 ####[facility] [address] [place], [address] Platelets (Bld) [#/Vol] 280 10*3/uL Normal 150-450 [facility] Comment on above: Order Comment: Order Date: 09/02/24Order Info: 0184-1 - CBCD Performed By: #### L 501.9520, L501.9985, L500.4050, L500.4100, L100.0100 ####[facility] [address] [place], [address] RBC (Bld) [#/Vol] 4.65 10*6/uL Normal 4.2-5.4 [facility] Comment on above: Order Comment: Order Date: 09/02/24Order Info: 0184-1 - CBCD Performed By: #### L 501.9520, L501.9985, L500.4050, L500.4100, L100.0100 ####[facility] [address] [place], [address] RDW SD 42.1 fl Normal 35.1-43.9 [facility] Comment on above: Order Comment: Order Date: 09/02/24Order Info: 0184-1 - CBCD Performed By: #### L 501.9520, L501.9985, L500.4050, L500.4100, L100.0100 ####[facility] [address] [place], [address] WBC (Bld) [#/Vol] 9.2 10*3/uL Normal 4.4-11.0 [facility] Comment on above: Order Comment: Order Date: 09/02/24Order Info: [id number] - CBCD Performed By: #### L 501.9520, L501.9985, L500.4050, L500.4100, L100.0100 ####[facility] [address] [place], [address] Calculated very low density lipoprotein (VLDL) cholesterol measurementOrdered By: Alex Etienne on 10-05-2024 Calculated very low density lipoprotein (VLDL) cholesterol measurement 28 mg/dL 5-40 [facility] Carbon dioxide, total [Moles /volume] in Central venous bloodOrdered By: Alex Etienne on 10-05-2024 CO2 [Moles/Vol] 22.4 mmol/L 21.0-32.0 [facility] Chloride assayOrdered By: Jillian Etienne on 10-05-2024 Chloride [Moles/Vol] 105 mmol/L 98-108 [facility] Comprehensive Metabolic Prof ilon 10-05-2024 Albumin [Mass/Vol] 4.0 g/dL Normal 3.5-5.0 [facility] Comment on above: Order Comment: Order Date: 09/02/24Order Info: [id number] - CMPOrder Info: [id number] - LIPIDOrder Info: [id number] - TSH Performed By: #### L 501.9520, L501.9985, L500.4050, L500.4100, L100.0100 ####[facility] [address] [place], [address] Albumin/Globulin [Mass ratio] 1.2 {ratio} Normal 0.9-2.4 [facility] Comment on above: Order Comment: Order Date: 09/02/24Order Info: [id number] - CMPOrder Info: [id number] - LIPIDOrder Info: [id number] - TSH Performed By: #### L 501.9520, L501.9985, L500.4050, L500.4100, L100.0100 ####[facility] [address] [place], [address] ALK PHOS 95 U/L Normal 35-104 [facility] Comment on above: Order Comment: Order Date: 09/02/24Order Info: 07-1 - CMPOrder Info: [id number] - LIPIDOrder Info: [id number] - TSH Performed By: #### L 501.9520, L501.9985, L500.4050, L500.4100, L100.0100 ####[facility] [address] [place], [address] ALT [Catalytic activity/Vol] 45 U/L High <=34 [facility] Comment on above: Order Comment: Order Date: 09/02/24Order Info: 785- - CMPOrder Info: [id number] - LIPIDOrder Info: [id number] - TSH Performed By: #### L 501.9520, L501.9985, L500.4050, L500.4100, L100.0100 ####[facility] [address] [place], [address] AST [Catalytic activity/Vol] 32 U/L Normal <=31 [facility] Comment on above: Order Comment: Order Date: 09/02/24Order Info: 07- - CMPOrder Info: [id number] - LIPIDOrder Info: [id number] - TSH Performed By: #### L 501.9520, L501.9985, L500.4050, L500.4100, L100.0100 ####[facility] [address] [place], [address] Bilirubin [Mass/Vol] 0.40 mg/dL Normal 0.00-1.30 [facility] Comment on above: Order Comment: Order Date: 09/02/24Order Info: [id number] - CMPOrder Info: [id number] - LIPIDOrder Info: [id number] - TSH Performed By: #### L 501.9520, L501.9985, L500.4050, L500.4100, L100.0100 ####[facility] [address] [place], [address] BUN/CRE 14.4 RATIO Normal 10-20 [facility] Comment on above: Order Comment: Order Date: 09/02/24Order Info: [id number] - CMPOrder Info: [id number] - LIPIDOrder Info: [id number] - TSH Performed By: #### L 501.9520, L501.9985, L500.4050, L500.4100, L100.0100 ####[facility] [address] [place], [address] Calcium [Mass/Vol] 9.5 mg/dL Normal 7.6-11.0 [facility] Comment on above: Order Comment: Order Date: 09/02/24Order Info: 07-1 - CMPOrder Info: [id number] - LIPIDOrder Info: 3 - TSH Performed By: #### L 501.9520, L501.9985, L500.4050, L500.4100, L100.0100 ####[facility] [address] [place], [address] Chloride [Moles/Vol] 105 mmol/L Normal 98-108 [facility] Comment on above: Order Comment: Order Date: 09/02/24Order Info: [id number] - CMPOrder Info: [id number] - LIPIDOrder Info: 3 - TSH Performed By: #### L 501.9520, L501.9985, L500.4050, L500.4100, L100.0100 ####[facility] [address] [place], [address] CO2 [Moles/Vol] 22.4 mmol/L Normal 21.0-32.0 [facility] Comment on above: Order Comment: Order Date: 09/02/24Order Info: [id number] - CMPOrder Info: [id number] - LIPIDOrder Info: 3 - TSH Performed By: #### L 501.9520, L501.9985, L500.4050, L500.4100, L100.0100 ####[facility] [address] [place], [address] Creatinine [Mass/Vol] 0.66 mg/dL Low 0.70-1.20 [facility] Comment on above: Order Comment: Order Date: 09/02/24Order Info: [id number] - CMPOrder Info: [id number] - LIPIDOrder Info: [id number] - TSH Performed By: #### L 501.9520, L501.9985, L500.4050, L500.4100, L100.0100 ####[facility] [address] [place], [address] GAP 12 Normal 5-15 [facility] Comment on above: Order Comment: Order Date: 09/02/24Order Info: [id number] - CMPOrder Info: [id number] - LIPIDOrder Info: [id number] - TSH Performed By: #### L 501.9520, L501.9985, L500.4050, L500.4100, L100.0100 ####[facility] [address] [place], [address] GFR/1.73 sq M.predicted among non-blacks MDRD (S/P/Bld) [Vol rate/Area] 114 mL/min/{1.73_m2} Normal >60 [facility] Comment on above: Order Comment: Order Date: 09/02/24Order Info: [id number] - CMPOrder Info: [id number] - LIPIDOrder Info: [id number] - TSH Result Comment: mL/m in/1.73m2 CKD-EPI Creatinine Equation (2020) Performed By: #### L 501.9520, L501.9985, L500.4050, L500.4100, L100.0100 ####[facility] [address] [place], [address] Globulin (S) [Mass/Vol] 3.4 g/dL Normal 2.2-4.2 [facility] Comment on above: Order Comment: Order Date: 09/02/24Order Info: 07-1 - CMPOrder Info: [id number] - LIPIDOrder Info: [id number] - TSH Performed By: #### L 501.9520, L501.9985, L500.4050, L500.4100, L100.0100 ####[facility] [address] [place], [address] Glucose [Mass/Vol] 129 mg/dL High 70-99 [facility] Comment on above: Order Comment: Order Date: 09/02/24Order Info: [id number] - CMPOrder Info: [id number] - LIPIDOrder Info: [id number] - TSH Performed By: #### L 501.9520, L501.9985, L500.4050, L500.4100, L100.0100 ####[facility] [address] [place], [address] Potassium [Moles/Vol] 3.7 mmol/L Normal 3.3-5.1 [facility] Comment on above: Order Comment: Order Date: 09/02/24Order Info: 07- - CMPOrder Info: [id number] - LIPIDOrder Info: [id number] - TSH Performed By: #### L 501.9520, L501.9985, L500.4050, L500.4100, L100.0100 ####[facility] [address] [place], [address] Sodium [Moles/Vol] 139 mmol/L Normal 133-145 [facility] Comment on above: Order Comment: Order Date: 09/02/24Order Info: 07-1 - CMPOrder Info: [id number] - LIPIDOrder Info: 3 - TSH Performed By: #### L 501.9520, L501.9985, L500.4050, L500.4100, L100.0100 ####[facility] [address] [place], [place], [address] T PROT 7.4 g/dL Normal 5.9-8.4 [facility] Comment on above: Order Comment: Order Date: 09/02/24Order Info: [id number] - CMPOrder Info: [id number] - LIPIDOrder Info: [id number] - TSH Performed By: #### L 501.9520, L501.9985, L500.4050, L500.4100, L100.0100 ####[facility] [address] [place], [place], [address] Urea nitrogen [Mass/Vol] 9 mg/dL Normal 4-19 [facility] Comment on above: Order Comment: Order Date: 09/02/24Order Info: [id number] - CMPOrder Info: [id number] - LIPIDOrder Info: [id number] - TSH Performed By: #### L 501.9520, L501.9985, L500.4050, L500.4100, L100.0100 ####[facility] [address] [place], [place], [id number] Eosinophil percentageOrdered By: Alex Etienne on 10-05-2024 Eosinophils/100 WBC (Bld) 1.0 % 0-5 [facility] Erythrocyte distribution wid th ratioOrdered By: Alex Etienne on 10-05-2024 Erythrocyte distribution width (RBC) [Ratio] 13.2 % 11.6-14.6 [facility] Erythrocyte distribution wid th standard deviationOrdered By: Alex Etienne on 10-05-2024 Erythrocyte distribution width (RBC) [Ratio] 42.1 fl 35.1-43.9 [facility] Glomerular filtration rate ( GFR) estimation/1.73 sq m using serum, plasma, or whole bOrdered By: Alex Etienne on 10-05-2024 GFR/1.73 sq M.predicted among non-blacks MDRD (S/P/Bld) [Vol rate/Area] 114 mL/min/{1.73_m2} >60 [facility] Comment on above: mL/min/1.73m2 CKD-EP I Creatinine Equation (2020) Hematocrit Auto (Bld) [Volum e fraction]Ordered By: Alex Etienne on 10-05-2024 Hematocrit (Bld) [Volume fraction] 40.9 % 37-47 [facility] Hemoglobin A1con 10-05-2024 HbA1c (Bld) [Mass fraction] 7.0 % High <=5.6 [facility] Comment on above: Order Comment: Order Date: 09/02/24Order Info: [id number] - A1C Result Comment: Norm al < 5.7 % Prediabetic 5.7 - 6.4 % Diabetic >or= 6.5 % Please note range changes. Performed By: #### L 501.9520, L501.9985, L500.4050, L500.4100, L100.0100 ####[facility] [address] [place], [address] Hemoglobin A1c percentageOrd ered By: Alex Etienne on 10-05-2024 HbA1c (Bld) [Mass fraction] 7.0 % High <5.7 [facility] Comment on above: Normal < 5.7 % Predi abetic 5.7 - 6.4 % Diabetic >or= 6.5 % Please note range changes. Hemoglobin measurementOrdere d By: Alex Etienne on 10-05-2024 Hemoglobin (Bld) [Mass/Vol] 13.5 g/dL 12.0-15.0 [facility] Immature granulocytes/100 WB C Auto (Bld)Ordered By: Alex Etienne on 10-05-2024 Immature granulocytes/100 WBC (Bld) 0.200 % 0.0-0.9 [facility] Comment on above: IG% - Immature Granu locytes (promyelocytes, myelocytes and metamyelocytes) > 1% indicates that a LEFT SHIFT is Present. LDL calc ser/plasOrdered By: Alex Etienne on 10-05-2024 Cholesterol in LDL [Mass/Vol] 79 mg/dL [facility] Comment on above: Ndffbcczzt=260-556 m g/dL & Higher Bqsv=975 mg/dL or greater Laboratory - Chemistry and C hemistry - challengeOrdered By: Alex Etienne on 10-05-2024 AST [Catalytic activity/Vol] 32 U/L <32 [facility] Lipid Profileon 10-05-2024 CHOL:HDL 4.40 Normal [facility] Comment on above: Order Comment: Order Date: 09/02/24Order Info: [id number] - CMPOrder Info: [id number] - LIPIDOrder Info: [id number] - TSH Performed By: #### L 501.9520, L501.9985, L500.4050, L500.4100, L100.0100 ####[facility] [address] [place], [address] Cholesterol [Mass/Vol] 139 mg/dL Normal <=200 [facility] Comment on above: Order Comment: Order Date: 09/02/24Order Info: [id number] - CMPOrder Info: [id number] - LIPIDOrder Info: [id number] - TSH Result Comment: Chol esterol level, Desirable <200 mg/dL Borderline high cholesterol 200-239 mg/dL High cholesterol >=240 mg/dL Recommendations of the NCEP Adult Treatment Panel for the following risk-cutoff thresholds for the [place] population. Performed By: #### L 501.9520, L501.9985, L500.4050, L500.4100, L100.0100 ####[facility] [address] [place], [address] Cholesterol in HDL [Mass/Vol] 32 mg/dL Low [facility] Comment on above: Order Comment: Order Date: 09/02/24Order Info: [id number] - CMPOrder Info: [id number] - LIPIDOrder Info: [id number] - TSH Result Comment: Missy onal Cholesterol Education Program (NCEP) guidelines: <40 mg/dL: Low HDL-cholesterol (major risk factor for CHD) >= 60 mg/dL: High HDL-cholesterol (negative risk factor for CHD) HDL-cholesterol is affected by a number of factors, e.g. smoking, exercise, hormones, sex and age. Performed By: #### L 501.9520, L501.9985, L500.4050, L500.4100, L100.0100 ####[facility] [address] [place], [address] Cholesterol in LDL [Mass/Vol] 79 mg/dL Normal [facility] Comment on above: Order Comment: Order Date: 09/02/24Order Info: [id number] - CMPOrder Info: [id number] - LIPIDOrder Info: [id number] - TSH Result Comment: Bord pyzjsy=791-462 mg/dL Higher Ajvt=607 mg/dL or greater Performed By: #### L 501.9520, L501.9985, L500.4050, L500.4100, L100.0100 ####[facility] [address] [place], [address] Cholesterol in VLDL [Mass/Vol] 28 mg/dL Normal 5-40 [facility] Comment on above: Order Comment: Order Date: 09/02/24Order Info: [id number] - CMPOrder Info: [id number] - LIPIDOrder Info: [id number] - TSH Performed By: #### L 501.9520, L501.9985, L500.4050, L500.4100, L100.0100 ####[facility] [address] [place], [address] Triglyceride [Mass/Vol] 142 mg/dL Normal [facility] Comment on above: Order Comment: Order Date: 09/02/24Order Info: [id number] - CMPOrder Info: [id number] - LIPIDOrder Info: [id number] - TSH Result Comment: The drugs N-Acetylcysteine and Metamizole may falsely depress this assay. Normal range: <150 mg/dL Borderline High: 150-199 mg/dL High: 200-499 mg/dL Very High: >500 mg/dL Performed By: #### L 501.9520, L501.9985, L500.4050, L500.4100, L100.0100 ####[facility] [address] [place], [address] MCV (mean corpuscular volume ) determinationOrdered By: Alex Etienne on 10-05-2024 MCV (RBC) [Entitic vol] 88.0 fL 81-99 [facility] Mean corpuscular hemoglobin (MCH) determinationOrdered By: Alex Etienne on 10-05-2024 MCH (RBC) [Entitic mass] 29.0 pg 27.0-32.0 [facility] Mean corpuscular hemoglobin concentration (MCHC) determinationOrdered By: Alex Etienne on 10-05-2024 MCHC (RBC) [Mass/Vol] 33.0 g/dL 32-36 [facility] Mean platelet volume determi nationOrdered By: Alex Etienne on 10-05-2024 Platelet mean volume (Bld) [Entitic vol] 11.8 fL 6.2-12.0 [facility] Monocyte percentageOrdered B y: Alex Etienne on 10-05-2024 Monocytes/100 WBC (Bld) 6.0 % 0-10 [facility] Neutrophil percentageOrdered By: Alex Etienne on 10-05-2024 Neutrophils/100 WBC (Bld) 61.9 % 47-70 [facility] Nucleated red blood cell per centageOrdered By: Alex Etienne on 10-05-2024 Nucleated RBC/100 WBC (Bld) [Ratio] 0 % 0-5 [facility] Platelet countOrdered By: Jillian Etienne on 10-05-2024 Platelets (Bld) [#/Vol] 280 10*3/uL 150-450 [facility] Potassium measurement (mass/ volume)Ordered By: Alex Etienne on 10-05-2024 Potassium (Unsp spec) [Mass/Vol] 3.7 mmol/L 3.3-5.1 [facility] RBC Auto (Bld) [#/Vol]Ordere d By: Alex Etienne on 10-05-2024 RBC (Bld) [#/Vol] 4.65 10*6/uL 4.2-5.4 [facility] Screening total cholesterol/ high density lipoprotein (HDL) cholesterol ratioOrdered By: Alex Etienne on 10-05-2024 Cholesterol.total/Choles terol in HDL [Mass ratio] 4.40 {ratio} [facility] Serum creatinine measurement (mass/volume)Ordered By: Alex Etienne on 10-05-2024 Creatinine [Mass/Vol] 0.66 mg/dL Low 0.70-1.20 [facility] Serum globulin measurementOr dered By: Alex Etienne on 10-05-2024 Globulin (S) [Mass/Vol] 3.4 g/dL 2.2-4.2 [facility] Serum glucose measurement (m ass/volume)Ordered By: Alex Etienne on 10-05-2024 Glucose [Mass/Vol] 129 mg/dL High 70-99 [facility] Serum or plasma alanine delaney otransferase (ALT) measurementOrdered By: Alex Etienne on 10-05-2024 ALT [Catalytic activity/Vol] 45 U/L High <35 [facility] Serum or plasma albumin kate urement (mass/volume)Ordered By: Alex Etienne on 10-05-2024 Albumin [Mass/Vol] 4.0 g/dL 3.5-5.0 [facility] Serum or plasma albumin/glob ulin mass ratioOrdered By: Alex Etienne on 10-05-2024 Albumin/Globulin [Mass ratio] 1.2 {ratio} 0.9-2.4 [facility] Serum or plasma alkaline brian sphatase measurementOrdered By: Alex Etienne on 10-05-2024 ALP [Catalytic activity/Vol] 95 U/L 35-104 [facility] Serum or plasma calcium kate urement (mass/volume)Ordered By: Alex Etienne on 10-05-2024 Calcium [Mass/Vol] 9.5 mg/dL 7.6-11.0 [facility] Serum or plasma cholesterol in HDL measurement (mass/volume)Ordered By: Alex Etienne on 10-05-2024 Cholesterol in HDL [Mass/Vol] 32 mg/dL Low >40 [facility] Comment on above: National Cholesterol Education Program (NCEP) guidelines:<40 mg/dL: Low HDL-cholesterol (major risk factor for CHD)>= 60 mg/dL: High HDL-cholesterol (negative risk factor for CHD)HDL-cholesterol is affected by a number of factors, e.g. smoking, exercise, hormones, sex and age. Serum or plasma cholesterol measurement (mass/volume)Ordered By: Alex Etienne on 10-05-2024 Cholesterol [Mass/Vol] 139 mg/dL <201 [facility] Comment on above: Cholesterol level, D esirable <200 mg/dLBorderline high cholesterol 200-239 mg/dLHigh cholesterol >=240 mg/dLRecommendations of the NCEP Adult Treatment Panel for the following risk-cutoff thresholds for the [place] population. Serum or plasma urea nitroge n measurement (mass/volume)Ordered By: Alex Etienne on 10-05-2024 Urea nitrogen [Mass/Vol] 9 mg/dL 4-19 [facility] Sodium levelOrdered By: Etienne Etienne on 10-05-2024 Sodium [Moles/Vol] 139 mmol/L 133-145 [facility] TSH DL <= 0.005 mIU/L QnOrde red By: Alex Etienne on 10-05-2024 TSH Qn 0.573 uIU/mL 0.300-4.200 [facility] Thyroid Stim Hormone (TSH)on 10-05-2024 TSH 0.573 uIU/mL Normal 0.300-4.200 [facility] Comment on above: Order Comment: Order Date: 09/02/24Order Info: [id number] - CMPOrder Info: [id number] - LIPIDOrder Info: [id number] - TSH Performed By: #### L 501.9520, L501.9985, L500.4050, L500.4100, L100.0100 ####[facility] [address] [place], [address] Total proteinOrdered By: Dilia Etienne on 10-05-2024 Protein [Mass/Vol] 7.4 g/dL 5.9-8.4 [facility] Triglycerides measurementOrd ered By: Alex Etienne on 10-05-2024 Triglyceride [Mass/Vol] 142 mg/dL <199 [facility] Comment on above: The drugs N-Acetylcy steine and Metamizole may falsely depress this assay. Normal range: <150 mg/dLBorderline High: 150-199 mg/dLHigh: 200-499 mg/dLVery High: >500 mg/dL Vitamin D,25 Hydroxyon 10-05 Vitamin D 25-OH 36.6 ng/mL Normal 30-100 [facility] Comment on above: Order Comment: Order Date: 09/02/24Order Info: [id number] - CMPOrder Info: [id number] - LIPIDOrder Info: [id number] - TSH Result Comment: Ludivina min D Status Deficiency: <20 ng/mL (50nmol/L) Insufficiency: 20-30 ng/mL (50-75 nmol/L) Sufficiency: 30-100 ng/mL (75-250 nmol/L) Toxicity: >100 ng/mL (>250 nmol/L) Performed By: #### L 506.1001 ####[facility] [address] [place], [address] White blood cell (WBC) count Ordered By: Alex Etienne on 10-05-2024 WBC (Bld) [#/Vol] 9.2 10*3/uL 4.4-11.0 [facility] MR/BMS.Shen 09-23-2024 MR/BMS.[facility] [address] [place] [address] OFFICE VISIT Date of Service: 09/23/24 MR#: [id number] Acct: [id number] Name: ANN FLORES FERDINAND Rep #: [id number] : 1985 Provider: GASPER Woodruff Age/Sex: 38/F Location: [facility] Status: Signed Intake Vital Signs 04/09/24 13:06 09/23/24 14:38 Height 5 ft 7 in Weight: 225 lb BP 135/85 H Blood Pressure Location Lt brachial Position Sitting Respiration 16 Pulse 104 H Pulse Source Monitor Temp 98.2 F Temp Source Temporal Pulse Oximetry (%) 96 Oxygen Delivery Method room air Intake Visit Reasons: Discoloration of ankles Is patient in pain?: No Allergies No Known Allergies Allergy (Verified 09/23/24 14:39) Medications ???Medication ???Instructions ???Recorded ???Confirmed ???Type levonorgestrel (Mirena) 1 device intrauterine ONCE 9 09/23/24 History biotin 1 mg capsule 1 mg PO DAILY 08/27/23 09/23/24 Hi story cholecalciferol (vitamin D3) 50 50 mcg PO DAILY 08/27/23 09/23/24 History mcg (2,000 unit) capsule lactobacillus combination no.4 3 3,000 mmu cells PO DAILY 08/27/23 09/23/24 History billion cell capsule (Probiotic) psyllium husk 0.4 gram capsule 0.4 g PO DAILY 08/27/23 09/23/24 H istory (Daily Fiber) levothyroxine 112 mcg capsule 125 mcg PO DAILY 09/23/24 09/23/24 History metformin 500 mg tablet 500 mg PO QDAY 09/23/24 09/23/24 H istory nystatin 100,000 unit/gram topical 1 applic topical TID PRN 5 History cream nystatin 100,000 unit/gram topical 1 applic topical TID PRN 5 History powder phentermine 37.5 mg capsule 37.5 mg PO QDAY 09/23/24 09/23/24 History semaglutide 0.25 mg or 0.5 mg (2 mg subcut 09/23/24 09/23/24 Histor y mg/3 mL) subcutaneous pen injector ([employer]) Is last menstrual period known: No Post menopausal: No Patient : No Have you fallen in the past year?: No PFSH Medical History Contusion of left forearm Atypical chest pain Cough Hypothyroidism Back pain Knee pain Migraines Fatigue Shoulder pain Surgical History S/P LEEP Hx of section Family History Grandmother Cancer Mother Hypertension Aunt Diabetes Grandfather Skin cancer Father CVA (cerebral vascular accident) Social History Smoking Status: Former smoker alcohol intake: current alcohol intake frequency: holidays/special occasions only substance use type: does not use caffeine: Yes what type of physical activity do you participate in: walking and aerobics frequency: 1-2 times per week seatbelt use: always do you feel safe at home: Yes additional social history: - Donato HPI HPI HPI: ANN FLORES, is a 38 F who presents to the office today for evaluation of bilateral lower extremity discoloration. She has noticed some increased discoloration to her bilateral medial calves/ankles over the last year or so. She does not have any associated pain, fatigue, heaviness, swelling, or skin br eakdown/weeping. She does not have any history of injury to the area, DVT/PE/SVT. She does not report any prominent varicosiities and no history of prior venouns interventions. She was recently diagnosed with type 2 diabetes. ROS General General: Yes weight change and fatigue; No appetite, colon cancer, breast cancer or weakness HEENT HEENT: No difficulty swallowing, eye injury, eye surgery, swollen glands or hoarseness Endo Endocrine: Yes thyroid disease and diabetes mellitus; No thyroid cancer, Hair loss, heat intolerance or cold intolerance Skin Skin: No rash or changing moles Musc Musculoskeletal: No back problems, arthritis, rheumatoid arthritis, gout or joint pain Cardio Cardiovascular: No murmur, pacemaker, heart disease, atrial fibrillation, high blood pressure, heart attack, heart stent, palpitations, shortness of breath with exertion or chest pain Psych Psychiatric: Yes depression and anxiety; No hearing voices Resp Respiratory: No shortness of breath, No sleep apnea, No cough, No COPD, No asthma, No emphysema and No wheezing Gastro Gastrointestinal: No abdominal pain, Yes nausea or vomiting, No diarrhea, No constipation, No blood in stool, No acid reflux, No hemorrhoids, No ulcers, No gallbladder problem and No black,tarry stools Drake Hematologic: No blood thinners, No blood disorders, No bleeding, No anemia and No blood clots Neuro Neurologic: No system reviewed and no additional complaints, except as documented, No as per HPI, No abnormal gait, No abnormal hearing, No abnormal movements, (more content not included)... Normal [facility] Forearm 2 Viewson 09-05-2024 Forearm 2 Views [facility] [address] [place] [address] Forearm 2 Views MR#: [id number] Acct: [id number] Name: ANN FLORES Rep #: [id number] : 1985 F 38 From: Sachin Lord MD PCP: Dr. Alex Etienne MD Status: REG CLI Study: Forearm 2 Views Date of Exam: 09/05/24 Exam# [id number] Ordering Dr: Omid Sandra PROCEDURE: FOREARM 2 VIEWS 09/05/2024 REASON FOR EXAM: INJURY TECHNIQUE: 2 view(s) of the LEFT forearm COMPARISON: None FINDINGS: Fracture/dislocation: None visible. Joint space(s): Preserved. Soft tissues: Unremarkable. Foreign bodies: None visible. Bone mineralization: Unremarkable. Other: None. RAD/Forearm 2 Views IMPRESSION: No visible acute displaced fracture Reading Location: [id number] CC: Dr. Alex Etienne MD; GASPER Lawler [employer] Project Planner: Signed Normal [facility]gent Care Visit Reporton 0 09-05-2024 Urgent Care Visit Report [facility] [address], [address] [place] [id number] OFFICE VISIT Date of Service: 09/05/24 MR#: [id number] Acct: [id number] Name: ANN FLORES Rep #: [id number] : 1985 Provider: GASPER Lawler Age/Sex: 38/F Location: [facility] Status: Signed Intake Vital Signs 04/09/24 13:06 09/05/24 08:55 Height 5 ft 7 in BP 128/84 H Blood Pressure Location Lt brachial Position Sitting Respiration 14 Pulse 76 Pulse Source Auscultation Temp 98.5 F Temp Source Oral Intake Visit Reasons: L WRIST INJURY Chief Complaint: ST, TAPIA, congestion, cough Is patient in pain?: No Allergies No Known Allergies Allergy (Verified 09/05/24 08:51) Medications ???Medication ???Instructions ???Recorded ???Confirmed ???Type levonorgestrel (Mirena) 1 device intrauterine ONCE 9 09/05/24 History biotin 1 mg capsule 1 mg PO DAILY 08/27/23 09/05/24 Hi story cholecalciferol (vitamin D3) 50 50 mcg PO DAILY 08/27/23 09/05/24 History mcg (2,000 unit) capsule lactobacillus combination no.4 3 3,000 mmu cells PO DAILY 08/27/23 09/05/24 History billion cell capsule (Probiotic) levothyroxine 112 mcg capsule 112 mcg PO DAILY 08/27/23 09/05/24 History psyllium husk 0.4 gram capsule 0.4 g PO DAILY 08/27/23 09/05/24 H istory (Daily Fiber) vitamin B complex 1 tab PO DAILY 08/27/23 09/05/24 H istory pseudoephedrine 60 mg-DM 15 1 tab PO Q4-6H PRN cold symptoms 0 05/20/24 09/05/24 Rx mg-guaifenesin 400 mg tablet #20 tabs (Capmist DM) nystatin 100,000 unit/gram topical 1 applic topical TID #30 grams 0 06/18/24 09/05/24 Rx cream nystatin 100,000 unit/gram topical 1 applic topical TID #60 grams 0 06/18/24 09/05/24 Rx powder Nurse's Note: L forearm , dog swipped her and she hit it. Iced it it is swollen and hurts bruised. Pt states if it is touched it hurts. Happened 5 days ago. Taking otc pain reliver. PFSH Medical History Contusion of left forearm Atypical chest pain Cough Hypothyroidism Back pain Knee pain Migraines Fatigue Shoulder pain Surgical History S/P LEEP Hx of section Family History Grandmother Cancer Mother Hypertension Aunt Diabetes Grandfather Skin cancer Father CVA (cerebral vascular accident) Social History Smoking Status: Former smoker alcohol intake: current alcohol intake frequency: holidays/special occasions only substance use type: does not use caffeine: Yes what type of physical activity do you participate in: walking and aerobics frequency: 1-2 times per week seatbelt use: always do you feel safe at home: Yes additional social history: - Donato HPI HPI Chief Complaint: ST, TAPIA, congestion, cough Details: ANN FLORES, is a 38 F who presents to the office today for initial evaluation status post left forearm contusion/swelling after hitting against metal railing at home 2 days ago. Localized pain is aggravated to touch, alleviated with rest. PMH NC. No left wrist/elbow complaints. No lpib-mzp-kbvouox products taken to assist. No other associated symptoms and no other alleviating or aggravating factors. ROS Const Constitutional: No other (As above) Exam Const General: cooperative, healthy appearing and no acute distress Orientation: alert and awake Resp Effort Inspection: normal respiratory effort and able to speak in complete sentences Cardio Rate: regular rate Pulses: radial pulses present Skin General: no rashes or lesions noted Neuro General: patient alert and patient awake Cognition: normal cognition Speech: speech normal Extrem General: full ROM (Left wrist/elbow), capillary refill normal and normal exam except as noted ( 4 cm diameter swollen/tender ecchymosis left forearm) Psych Appearance: grossly normal Mental Status: mental status grossly normal Mood: congruent mood Affect: normal affect Speech and Movement: speech and movement normal Attitude: cooperative Coding Level of Care Code Off vis,est,level 4 Diagnoses Contusion of left forearm S50.12XA Assessment and Plan Assessment and Plan (1) Contusion of left forearm: Status: Acute Plan: Left forearm radiographs reveal no acute osseous pathology per my review, pending radiologist interpretation time patient discharge. Supportive measures including rest, ice, elevate, NSAIDs/acetaminophen, localized compression with Julio César wrap as dispensed/applied/ins tructed as needed for symptomatic relief. Follow-up with PCP or orthopedics in 5 to 7 days should symp (more content not included)... Normal [facility] Hemoglobin A1con 08-11-2024 HbA1c (Bld) [Mass fraction] 8.1 % Normal <=5.6 [facility] Comment on above: Performed By: #### L 501.9520, L501.9985 #### [facility] [address] [place], [address] Hemoglobin A1c percentageOrd ered By: Alex Etienne on 08-11-2024 HbA1c (Bld) [Mass fraction] 8.1 % >5.7 [facility] TSH DL <= 0.005 mIU/L QnOrde red By: Alex Etienne on 08-11-2024 Thyroid Stimulating Hormone (TSH) 1.370 uIU/mL 0.300-4.200 [facility] TSH Qn 1.370 uIU/mL 0.300-4.200 [facility] Thyroid Stim Hormone (TSH)on 08-11-2024 TSH 1.370 uIU/mL Normal 0.300-4.200 [facility] Comment on above: Performed By: #### L 501.9520, L501.9985 #### [facility] [address] [place], [place], [address] [id number]-[id number] DOrdered By: Megha Etienne on 06-21-2024 Vitamin D 25-Hydroxy 39.0 ng/mL [facility] Comment on above: Vitamin D 25(OH) Sta tus Range Deficiency <20 ng/mL (50nmol/L) Insufficiency 20 - 30 ng/mL (50 - 75 nmol/L) Sufficiency 30 - 100 ng/mL (75 - 250 nmol/L) Toxicity >100 ng/mL (>250 nmol/L) Hemoglobin A1con 06-21-2024 HbA1c (Bld) [Mass fraction] 8.7 % High 3.8-5.6 [facility] Comment on above: Order Comment: Order Date: 06/17/24Order Info: [id number] - A1C Result Comment: Norm al < 5.7 % Prediabetic 5.7 - 6.4 % Diabetic >or= 6.5 % Please note range changes. Performed By: #### L 501.9520, L506.1000, L501.9985 ####[facility] [address] [place], [place], [address] Hemoglobin A1c percentageOrd ered By: Alex Etienne on 06-21-2024 HbA1c (Bld) [Mass fraction] 8.7 % High 3.8-5.6 [facility] Comment on above: Normal < 5.7 % Predi abetic 5.7 - 6.4 % Diabetic >or= 6.5 % Please note range changes. Serum or plasma thyroid stim ulating hormone (TSH) measurement (units/volume)Ordered By: Alex Etienne on 06-21-2024 TSH Qn 10.000 uIU/mL High 0.358-3.740 [facility] TSH QnOrdered By: Alex jerez on 06-21-2024 Thyroid Stimulating Hormone (TSH) 10.000 uIU/mL High 0.358-3.740 [facility] Thyroid Stim Hormone (TSH)on 06-21-2024 TSH 10.000 uIU/mL High 0.358-3.740 [facility] Comment on above: Order Comment: Order Date: 06/17/24 Order Info: [id number] - TSH Performed By: #### L 501.9520, L506.1000, L501.9985 #### [facility] [address] [place], [place], [address] Vitamin D,25 Hydroxyon 06-21 Vitamin D 25-OH 39.0 ng/mL Normal [facility] Comment on above: Order Comment: Order Date: 06/17/24 Order Info: [id number] - VITD25 Result Comment: Ludivina min D 25(OH) Status Range Deficiency <20 ng/mL (50nmol/L) Insufficiency 20 - 30 ng/mL (50 - 75 nmol/L) Sufficiency 30 - 100 ng/mL (75 - 250 nmol/L) Toxicity >100 ng/mL (>250 nmol/L) Performed By: #### L 501.9520, L506.1000, L501.9985 #### [facility] [address] [place], [place], [address] Urgent Care Visit Reporton 0 06-18-2024 Urgent Care Visit Report [facility] [address], [address] [place], [place] [address] OFFICE VISIT Date of Service: 06/18/24 MR#: [id number] Acct: [id number] Name: ANN FLORES Rep #: [id number] : 1985 Provider: KEATON Younger Age/Sex: 38/F Location: [facility] Status: Signed Intake Vital Signs 04/09/24 13:06 Height 5 ft 7 in Intake Visit Reasons: YEAST INFECTION Chief Complaint: ST, TAPIA, congestion, cough Allergies No Known Allergies Allergy (Verified 06/18/24 13:46) Medications ???Medication ???Instructions ???Recorded ???Confirmed ???Type levonorgestrel (Mirena) 1 device intrauterine ONCE 9 06/18/24 History biotin 1 mg capsule 1 mg PO DAILY 08/27/23 06/18/24 Hi story cholecalciferol (vitamin D3) 50 50 mcg PO DAILY 08/27/23 06/18/24 History mcg (2,000 unit) capsule lactobacillus combination no.4 3 3,000 mmu cells PO DAILY 08/27/23 06/18/24 History billion cell capsule (Probiotic) levothyroxine 112 mcg capsule 112 mcg PO DAILY 08/27/23 06/18/24 History psyllium husk 0.4 gram capsule 0.4 g PO DAILY 08/27/23 06/18/24 H istory (Daily Fiber) vitamin B complex 1 tab PO DAILY 08/27/23 06/18/24 H istory pseudoephedrine 60 mg-DM 15 1 tab PO Q4-6H PRN cold symptoms 0 05/20/24 06/18/24 Rx mg-guaifenesin 400 mg tablet #20 tabs (Capmist DM) nystatin 100,000 unit/gram topical 1 applic topical TID #30 grams 0 06/18/24 06/18/24 Rx cream nystatin 100,000 unit/gram topical 1 applic topical TID #60 grams 0 06/18/24 06/18/24 Rx powder PFSH Medical History Atypical chest pain Cough Hypothyroidism Back pain Knee pain Migraines Fatigue Shoulder pain Surgical History S/P LEEP Hx of section Family History Grandmother Cancer Mother Hypertension Aunt Diabetes Grandfather Skin cancer Father CVA (cerebral vascular accident) Social History Smoking Status: Former smoker alcohol intake: current alcohol intake frequency: holidays/special occasions only substance use type: does not use caffeine: Yes what type of physical activity do you participate in: walking and aerobics frequency: 1-2 times per week seatbelt use: always do you feel safe at home: Yes additional social history: - Donato [facility] HPI Chief Complaint: ST, TAPIA, congestion, cough Details: ANN FLORES, is a 38 F who presents to the office today for rash under breasts -on and off for 1 month- irritating when bra rubs against it -no fever or chills, no drainage -no itching but uncomfortable ROS Const Constitutional: Positive for other (ROS negative x6 except what was placed in HPI) Exam Const General: cooperative and no acute distress Orientation: alert and oriented x3 Skin Other: -underneath breasts + intertrigo- no drainage Psych Appearance: grossly normal Mental Status: mental status grossly normal Attitude: cooperative Thought Process: normal Thought Content: normal Judgment: judgment good Coding Level of Care Code Off vis,est,level 2 Diagnoses Intertrigo L30.4 Assessment and Plan Assessment and Plan (1) Intertrigo: Status: Acute Plan: -discussed home care measures Medications: New nystatin 1 applic topical TID 30 grams 3RF nystatin 1 applic topical TID 60 grams 3RF Plan Details Goals Barriers: Goals Decrease TAPIA Decrease spasm Decrease inflammation Barriers Loss of lordosis 06/18/24 1348 Date Jessy JACQUESC Cosigner Signature: Date (if applicable) CC: Normal [facility] - Microbiology an d Antimicrobial susceptibilityon 05-20-2024 SARS-CoV-2 (COVID-19) RNA KAMLA+probe Ql (Unsp spec) Not detected [facility] No Panel Informationon 05-20 POC Nasal Swab Influenza A,B Not detected [facility] POC Nasal Swab RSV Not detected [facility] Office Visit Reporton 2024 Office Visit Report [facility] [address] [place] [address] OFFICE VISIT Date of Service: 05/20/24 MR#: [id number] Acct: [id number] Patient: ANN FLORES Rep #: [id number] : 1985 Provider: GASPER Orellana Age/Sex: 38/F Location: [facility] Status: Signed Employer Purchased Covid Test Note: Patient here today for Covid Testing, requested by their Employer. Assessment and Plan Plan Details Goals Barriers: Goals Decrease TAPIA Decrease spasm Decrease inflammation Barriers Loss of lordosis 05/20/24 1338 Date Dane JACKMAN Cosigner Signature: Date (if applicable) CC: Normal [facility] S. pyogenes Ag IA.rapid Ql ( Throat)on 05-20-2024 S. pyogenes Ag IA Ql (Unsp spec) Negative [facility] Urgent Care Visit Reporton 0 05-20-2024 Urgent Care Visit Report [facility] [address], [address] [place] [address] OFFICE VISIT Date of Service: 05/20/24 MR#: [id number] Acct: [id number] Name: ANN FLORES Rep #: [id number] : 1985 Provider: GASPER Orellana Age/Sex: 38/F Location: [facility] Status: Signed Intake Vital Signs 04/09/24 13:06 Height 5 ft 7 in Intake Visit Reasons: SORE THROAT, COUGH, HEADACHE Chief Complaint: ST, TAPIA, congestion, cough Upper Stitcher Required: No Is patient in pain?: No Allergies No Known Allergies Allergy (Verified 05/20/24 07:45) Is last menstrual period known: No Post menopausal: No Patient : No Have you fallen in the past year?: No Nurse's Note: ST, TAPIA, congestion, cough since this morning. denies fever, BA PFSH Medical History Atypical chest pain Cough Hypothyroidism Back pain Knee pain Migraines Fatigue Shoulder pain Surgical History S/P LEEP Hx of section Family History Grandmother Cancer Mother Hypertension Aunt Diabetes Grandfather Skin cancer Father CVA (cerebral vascular accident) Social History Smoking Status: Former smoker alcohol intake: current alcohol intake frequency: holidays/special occasions only substance use type: does not use caffeine: Yes what type of physical activity do you participate in: walking and aerobics frequency: 1-2 times per week seatbelt use: always do you feel safe at home: Yes additional social history: - Donato HPI HPI Chief Complaint: ST, TAPIA, congestion, cough Details: ANN FLORES, is a 38 F who presents to the office today for complaint of sore throat, headache, congestion and cough starting yesterday. Patient denies fever, chills, sweats. No nausea, vomiting or diarrhea. No loss of taste or smell. No other associated symptoms or alleviating/aggravati ng factors. ROS Const Constitutional: No other (As above) Exam Const General: cooperative and well developed HENMT Head: normal to inspection and atraumatic Ears: hearing grossly normal bilaterally Nose: nasal discharge clear Face and sinus: normal facial exam Mouth: oral mucosae normal Throat: abnormal tonsil bilaterally hypertrophy 1+ Resp Effort Inspection: normal respiratory effort and no audible wheezes Auscultation: Bilateral: Clear to Auscultation Cardio Rate: regular rate Rhythm: regular rhythm Neuro General: patient alert and CN's II-XI intact bilaterally Psych Appearance: grossly normal Mental Status: mental status grossly normal Results POC Yaneth Rapid Strep POC Yaneth Rapid Strep Negative Last Edit by Margarita Otero on 05/20/24 08:01 POC CEPH COV,FluAB,RSV PCR CEPHEID COVID PCR Not DETECTED Last Edit by Margarita Otero on 05/20/24 08:27 CEPHEID FLU AB PCR NOT DETECTED FLU A B Last Edit by Margarita Otero on 05/20/24 08:27 CEPHEID RSV PCR NOT DETECTED Last Edit by Margarita Otero on 05/20/24 08:27 Coding Level of Care Code Off vis,new,level 3 Diagnoses Acute upper respiratory infection J06.9 Assessment and Plan Assessment and Plan (1) Acute upper respiratory infection: Status: Acute Medications: New ffrbwvgslvxtaby-PY-ip aifenesin 60-15-400 mg (Capmist DM) do not exceed 4 doses per 24 hrs 1 TAB PO Q4-6H PRN 20 tabs 0RF cold symptoms Plan Capmist as prescribed today. Encouraged to get plenty of rest, drink lots of clear liquids, and use Tylenol or Ibuprofen (unless contraindicated) for fever and comfort. Patient also educated on other symptomatic management techniques. To be seen in 7-10 days if no improvement; sooner if worsening of symptoms. Patient advised of potential red flags and when appropriate to report to the ED. Patient verbalized understanding and agreement with all the above. Plan Details Goals Barriers: Goals Decrease TAPIA Decrease spasm Decrease inflammation Barriers Loss of lordosis Clinical Quality Measures Falls Risk Screening/Assistive Devices Have you fallen in the past year?: No 05/20/24 0901 Date Dane Lal Signature: Date (if applicable) CC: Normal [facility] Urgent Care Visit Report [facility] [address], [address] [place] [address] OFFICE VISIT Date of Service: 05/20/24 MR#: [id number] Acct: [id number] Name: ANN FLORES Rep #: [id number] : 1985 Provider: GASPER Orellana Age/Sex: 38/F Location: [facility] Status: Signed Intake Vital Signs 04/09/24 13:06 05/20/24 07:44 Height 5 ft 7 in BP 126/60 H Blood Pressure Location Lt brachial Position Sitting Respiration 16 Pulse 76 Pulse Source NIBP Temp 98.5 F Temp Source Oral Pulse Oximetry (%) 96 Oxygen Delivery Method room air 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 PFSH Medical History Atypical chest pain Cough Hypothyroidism Back pain Knee pain Migraines Fatigue Shoulder pain Surgical History S/P LEEP Hx of section Family History Grandmother Cancer Mother Hypertension Aunt Diabetes Grandfather Skin cancer Father CVA (cerebral vascular accident) Social History Smoking Status: Former smoker alcohol intake: current alcohol intake frequency: holidays/special occasions only substance use type: does not use caffeine: Yes what type of physical activity do you participate in: walking and aerobics frequency: 1-2 times per week seatbelt use: always do you feel safe at home: Yes additional social history: - Donato HPI HPI Chief Complaint: ST, TAPIA, congestion Details: ANN FLORES, is a 38 F who presents to the office today for Results POC Yaneth Rapid Strep POC Yaneth Rapid Strep Negative Last Edit by Margarita Otero on 05/20/24 08:01 POC CEPH COV,FluAB,RSV PCR CEPHEID COVID PCR Not DETECTED Last Edit by Margarita Otero on 05/20/24 08:27 CEPHEID FLU AB PCR NOT DETECTED FLU A B Last Edit by Margarita Otero on 05/20/24 08:27 CEPHEID RSV PCR NOT DETECTED Last Edit by Margarita Otero on 05/20/24 08:27 Coding Level of Care Code No Charge Assessment and Plan Assessment and Plan Orders: Orders POC Cepheid Covid, FluAB, RSV Today POC Yaneth Rapid Strep A Today Plan Details Goals Barriers: Goals Decrease TAPIA Decrease spasm Decrease inflammation Barriers Loss of lordosis Clinical Quality Measures Falls Risk Screening/Assistive Devices Have you fallen in the past year?: No 05/20/24 1754 Date Dane Lal Signature: Date (if applicable) CC: Normal [facility] Office Visit Reporton 2023 Office Visit Report [facility] [address] [place] [address] OFFICE VISIT Date of Service: 04/09/24 MR#: [id number] Acct: [id number] Patient: ANN FLORES Rep #: [id number] : 1985 Provider: KEATON garza Age/Sex: 38/F Location: [facility] Status: Signed Intake Vital Signs 02/24/24 16:50 04/09/24 13:06 Height 5 ft 7 in 5 ft 7 in Weight: 230 lb BMI 36.0 BP 122/82 H Blood Pressure Location Lt brachial Position Sitting Respiration 16 Pulse 108 H Pulse Source Monitor Temp 98.1 F Temp Source Oral Pulse Oximetry (%) 98 Oxygen Delivery Method room air 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: 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 vaccine Upper Stitcher Required: No Is patient in pain?: No Allergies No Known Allergies Allergy (Verified 04/09/24 13:16) [facility] Medical History (Updated 02/24/24 @ 17:51 by GASPER Green) Atypical chest pain Cough Hypothyroidism Back pain Knee pain Migraines Fatigue Shoulder pain Surgical History S/P LEEP Hx of section Family History Grandmother Cancer Mother Hypertension Aunt Diabetes Grandfather Skin cancer Father CVA (cerebral vascular accident) Social History Smoking Status: Former smoker alcohol intake: current alcohol intake frequency: holidays/special occasions only substance use type: does not use caffeine: Yes what type of physical activity do you participate in: walking and aerobics frequency: 1-2 times per week seatbelt use: always do you feel safe at home: Yes additional social history: - Donato HPI HPI Chief Complaint: flu vaccine Details: ANN FLORES, is a 38 F who presents to the office today for Immunizations Flucelvax Triv 8241-1644 (PF) 45 mcg (15 mcg x 3)/0.5 mL IM syringe Performing Provider: KEATON Prince Performing Location[facility] Administered by: Margarita Otero on 04/09/24 13:17 Dose Route Admin Location Dispensed Lot Number Expiration Date [facility] Man ufacturer 0.5 mL IM Right Deltoid 0.5 mL [id number] 10/05/24 14244-985-12 [employer]. 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 Alex Etienne MD Status: REG CLI Study: Chest PA and Lateral Date of Exam: 02/24/24 Exam# [id number] Ordering Dr: Omid Sandra [id number] INDICATION: cough EXAMINATION/TECHNIQUE : X-RAY - XR Chest 2 Views COMPARISON: 03/05/2018 FINDINGS: The lungs are clear. The cardiomediastinal silhouette is unremarkable. No pleural effusion or pneumothorax. No acute osseous abnormalities. RAD/Chest PA and Lateral IMPRESSION: No acute radiographic abnormalities. Electronically Signed: Arsen Barron MD at 16:54 EDT , CC: Dr. Alex Etienne MD; GASPER Lawler [employer] Project Planner: Signed Normal [facility] Urgent Care Visit Reporton 1 Urgent Care Visit Report [facility] [address], [address] [place] [address] OFFICE VISIT Date of Service: 02/24/24 MR#: [id number] Acct: [id number] Name: ANN FLORES Rep #: [id number] : 1985 Provider: GASPER Lawler Age/Sex: 38/F Location: [facility] Status: Signed Intake Vital Signs 09/10/23 15:03 02/24/24 16:50 Height 5 ft 7 in 5 ft 7 in Weight: 230 lb BMI 36.0 BP 122/82 H Blood Pressure Location Lt brachial Position Sitting Respiration 16 Pulse 108 H Pulse Source Monitor Temp 98.1 F Temp Source Oral Pulse Oximetry (%) 98 Oxygen Delivery Method room air Intake Visit Reasons: chest heaviness, fatigue Chief Complaint: chest heaviness, fatigue Upper Stitcher Required: No Accompanied by: Self Is patient in pain?: No Allergies No Known Allergies Allergy (Verified 02/24/24 16:49) Medications ???Medication ???Instructions ???Recorded ???Confirmed ???Type levonorgestrel 21 mcg/24 hr (up to 1 device intrauterine ONCE 03/25/19 02/24/24 History 8 years) 52 mg intrauterine device (Mirena) biotin 1 mg capsule 1 mg PO DAILY 08/27/23 02/24/24 History cholecalciferol (vitamin D3) 50 50 mcg PO DAILY 08/27/23 02/24/24 History mcg (2,000 unit) capsule lactobacillus combination no.4 3 3,000 mmu cells PO DAILY 08/27/23 02/24/24 History billion cell capsule (Probiotic) levothyroxine 112 mcg capsule 112 mcg PO DAILY 08/27/23 02/24/24 History psyllium husk 0.4 gram capsule 0.4 g PO DAILY 08/27/23 02/24/24 History (Daily Fiber) vitamin B complex 1 tab PO DAILY 08/27/23 02/24/24 History PFSH Medical History (Updated 02/24/24 @ 17:51 by Omid JACKMAN, PA) Atypical chest pain Cough Hypothyroidism Back pain Knee pain Migraines Fatigue Shoulder pain Surgical History S/P LEEP Hx of section Family History Grandmother Cancer Mother Hypertension Aunt Diabetes Grandfather Skin cancer Father CVA (cerebral vascular accident) Social History Smoking Status: Former smoker alcohol intake: current alcohol intake frequency: holidays/special occasions only substance use type: does not use caffeine: Yes what type of physical activity do you participate in: walking and aerobics frequency: 1-2 times per week seatbelt use: always do you feel safe at home: Yes additional social history: - Donato HPI HPI Chief Complaint: chest heaviness, fatigue Details: ANN FLORES, is a 38 F who presents to the office today for initial evaluation approximately 1 week history of progressively worsening intermittent chest, "heaviness" with mild fatigue and rare occasional cough. No complaints of fever, chills, sweats, lightheadedness/dizzi ness, nausea/vomiting, or chest pressure with shortness of breath or dyspnea on exertion. Ex-smoker. Several close contacts with similar URI complaints, including several people she knows with pneumonia and is concerned she may have contracted the same. No vhpg-mxt-uqwahlg products taken to assist. No other associated symptoms and no other alleviating/aggravati ng factors. ROS Const Constitutional: No other (As above) Exam Const General: cooperative, healthy appearing and no acute distress Orientation: alert and awake HENPR Head: normal to inspection Ears: hearing grossly normal bilaterally, external ears normal, TM's normal bilaterally and EAC's normal Nose: external nose normal, nares normal, septum normal and no nasal discharge Face and sinus: normal facial exam, sinuses nontender and face symmetric Mouth: oral mucosae normal, lip normal, tongue normal, oropharynx normal and moist mucous membranes Throat: posterior oropharynx normal, tonsils normal, uvula midline and no postnasal drainage Eyes General: appearance normal, both eyes and all related structures Neck Neck: normal visual inspection, no lymphadenopathy, no meningeal signs and supple Neck mass: No Thyroid: thyroid normal Lymphatic: no lymphadenopathy noted Chest Chest palpation inspection: normal inspection of the chest Resp Effort Inspection: normal respiratory effort and able to speak in complete sentences Auscultation: Bilateral: Clear to Auscultation Cardio Palpation: normal PMI Rate: regular rate Rhythm: regular rhythm Heart Sounds: S1 normal, S2 normal, no gallops, no murmurs and no rubs Pulses: radial pulses present GI Inspection: normal to inspection Skin General: no rashes or lesions noted Neuro General: patient alert, patient awake and patient oriented x3 Cognition: normal cognition Speech: speech normal Psych Appearance: grossly normal Mental Status: mental status g (more content not included)... Normal [facility] Cervical or vaginal specimen microscopic examination by liquid based cytology (reportOrdered By: Kelley Higuera on 08-27-2023 Cytology report Cyto stain.thin prep Doc (Cvx/Vag) Comment . [facility] Comment on above: Criteria not met, HP V Genotype not performed.Performed at: [address] [id number] Director: Aruna Meehan MD, Phone: [phone] at: =G - [facility] [address] [place] [id number] Director: Aruna Meehan MD, Phone: [phone] Cervical or vagninal specime n microscopic examination by cytology stain (reported asOrdered By: Kelley Higuera on 08-27-2023 Cytology report Cyto stain Doc (Cvx/Vag) Comment . [facility] Comment on above: The Pap smear is a s creening test designed to aid in thedetection of premalignant and malignant conditions of theuterine cervix. It is not a diagnostic procedure andshould not be used as the sole means of detecting cervicalcancer. Both false-positive and false-negative reports dooccur. Detection in cervical specim en of any of human papilloma virus (HPV) 16, 18, 31, 33,Ordered By: Kelley Higuera on 08-27-2023 HPV 16+18+31+33+35+39+45+51+ 52+56+58+59+66+68 DNA Probe+sig amp Ql (Cvx) Negative Negative [facility] Comment on above: This nucleic acid am plification test detects fourteen high-risk HPV types (16,18,31,33,35,39,45,51,52,56,58,59,66,68)without differentiation. Laboratory - CytologyOrdered By: Kelley Higuera on 08-27-2023 Director Of Restaurant Cyto stain Nom (Cvx/Vag) [ID] Comment . [facility] Comment on above: Armando Camejo, Cyt otechnologist (ASCP) Laboratory - Miscellaneous t estsOrdered By: Kelley Higuera on 08-27-2023 Service comment (Unsp spec) [Interp] . . [facility] Thin prep Papanicolaou smear with manual screeningOrdered By: Kelley Higuera on 08-27-2023 Thin prep Papanicolaou smear with manual screening Comment . [facility] Comment on above: NEGATIVE FOR INTRAEP ITHELIAL LESION OR MALIGNANCY. This liquid based Th inPrep(R) pap test was screened withthe use of an image guided system. Absolute lymphocyte countOrd ered By: Kelsie Casey on 08-07-2023 Lymphocytes Auto (Unsp spec) [#/Vol] 2.60 10*3/uL 0.83-4.51 [facility] Automated lymphocyte count a s percentage of total leukocytesOrdered By: Kelsie Casey on 08-07-2023 Lymphocytes/100 WBC Auto (Unsp spec) 31.5 % 19-41 [facility] Basophil percentageOrdered B y: Kelsie Casey on 08-07-2023 Basophils/100 WBC (Bld) 0.2 % 0-1 [facility] Bilirubin [Mass/Vol] 0.50 mg/dL 0.20-1.00 [facility] Comment on above: For patients on eltr ombopag therapy, use of Dimension [place] TBIL is not recommended. Chloride [Moles/Vol] 107 mmol/L 98-107 [facility] Cholesterol [Mass/Vol] 122 mg/dL <200 [facility] Comment on above: <200 mg/dL Desirable 200-240 mg/dL Borderline >240 mg/dL High Risk Eosinophils/100 WBC (Bld) 1.1 % 0-5 [facility] Glucose [Mass/Vol] 119 mg/dL 74-106 [facility] Comment on above: Fasting Glucose resu lt from 100 to 125 mg/dL suggests IMPAIRED HOMEOSTASIS per A.D.A. criteria. Hemoglobin (Bld) [Mass/Vol] 13.9 g/dL 12.0-15.0 [facility] Monocytes/100 WBC (Bld) 6.7 % 0-10 [facility] Neutrophils (Bld) [#/Vol] 5.0 10*3/uL 2.0-7.7 [facility] Neutrophils/100 WBC (Bld) 60.3 % 47-70 [facility] Potassium [Moles/Vol] 3.5 mmol/L 3.5-5.1 [facility] Protein [Mass/Vol] 7.3 g/dL 6.4-8.2 [facility] Sodium [Moles/Vol] 137 mmol/L 136-145 [facility] Triglyceride [Mass/Vol] 145 mg/dL <199 [facility] Comment on above: The drugs N-Acetylcy steine and Metamizole may falsely depress this assay.Serum Triglycerides Reference Interval Normal <150 mg/dL Borderline high 150 - 199 mg/dL High 200 - 499 mg/dL Very High > or = 500 mg/dL WBC (Bld) [#/Vol] 8.3 10*3/uL 4.4-11.0 [facility] Determination of erythrocyte mean corpuscular volume (MCV)Ordered By: Kelsie Casey on 08-07-2023 MCV (RBC) [Entitic vol] 87.9 fL 81-99 [facility] Erythrocyte distribution wid th ratioOrdered By: Kelsie Casey on 08-07-2023 Erythrocyte distribution width (RBC) [Ratio] 13.2 % 11.6-14.6 [facility] Erythrocyte distribution wid th standard deviationOrdered By: Kelsie Casey on 08-07-2023 Erythrocyte distribution width (RBC) [Entitic vol] 42.5 fL 35.1-43.9 [facility] Hematocrit Auto (Bld) [Volum e fraction]Ordered By: Kelsie Casey on 08-07-2023 Hematocrit (Bld) [Volume fraction] 42.1 % 37-47 [facility] Immature granulocytes/100 WB C Auto (Bld)Ordered By: Kelsie Casey on 08-07-2023 Immature granulocytes/100 WBC (Bld) 0.200 % 0.0-0.9 [facility] Comment on above: IG% - Immature Granu locytes (promyelocytes, myelocytes and metamyelocytes) > 1% indicates that a LEFT SHIFT is Present. Laboratory - Chemistry and C hemistry - challengeOrdered By: Kelsie Casey on 08-07-2023 Albumin/Globulin [Mass ratio] 1.0 {ratio} 0.9-2.4 [facility] ALP [Catalytic activity/Vol] 87 U/L 45-117 [facility] ALT [Catalytic activity/Vol] 37 U/L 13-56 [facility] Cholesterol in HDL [Mass/Vol] 33 mg/dL >40 [facility] Comment on above: The drugs N-Acetylcy steine and Metamizole may falsely depress this assay. Reference Range HDL <40 mg/dL Low HDL Cholesterol HDL >or= 60 mg/dL High HDL Cholesterol Cholesterol in LDL [Mass/Vol] 60 mg/dL 0-130 [facility] CO2 [Moles/Vol] 25.0 mmol/L 21.0-32.0 [facility] Ferritin [Mass/Vol] 180 ng/mL 8-252 [facility] Globulin (S) [Mass/Vol] 3.7 g/dL 2.2-4.2 [facility] Urea nitrogen/Creatinine [Mass ratio] 12.4 mg/mg 10-20 [facility] Laboratory - Hematology and Cell countsOrdered By: Kelsie Casey on 08-07-2023 MCH (RBC) [Entitic mass] 29.0 pg 27.0-32.0 [facility] MCHC (RBC) [Mass/Vol] 33.0 g/dL 32-36 [facility] Nucleated RBC/100 WBC (Bld) [Ratio] 0 % 0-5 [facility] Platelet mean volume (Bld) [Entitic vol] 11.4 fL 6.2-12.0 [facility] Platelets (Bld) [#/Vol] 280 10*3/uL 150-450 [facility] No Panel InformationOrdered By: Kelsie Casey on 08-07-2023 Estimated GFR (MDRD) Amer 116 mL/min >60 [facility] Comment on above: GFR Calc Estimated GFR (MDRD) Non-Af Amer 96 mL/min >60 [facility] Comment on above: Non- GFR Calc VLDL Cholesterol 29 mg/dL 5-40 [facility] RBC Auto (Bld) [#/Vol]Ordere d By: Kelsie Casey on 08-07-2023 RBC (Bld) [#/Vol] 4.79 10*6/uL 4.2-5.4 [facility] Serum or plasma calcium kate urement (mass/volume)Ordered By: Kelsie Casey on 08-07-2023 Calcium [Mass/Vol] 9.2 mg/dL 8.5-10.1 [facility] Serum or plasma creatinine m easurement (mass/volume)Ordered By: Kelsie Casey on 08-07-2023 Creatinine [Mass/Vol] 0.72 mg/dL 0.55-1.02 [facility] Comment on above: The validity of the calculated GFR & GFRAA in patients over 70 years has not been determined. Clinical correlation is essential. Serum or plasma thyroid stim ulating hormone (TSH) measurement (units/volume)Ordered By: Kelsie Casey on 08-07-2023 TSH Qn 1.27 uIU/mL 0.358-3.74 [facility] Serum or plasma urea nitroge n measurement (mass/volume)Ordered By: Kelsie Casey on 08-07-2023 Urea nitrogen [Mass/Vol] 9 mg/dL 7-18 [facility] Thin prep Papanicolaou smear with manual screeningOrdered By: Kelsie Casey on 08-07-2023 Thin prep Papanicolaou smear with manual screening 3.6 g/dL 3.2-5.0 [facility] Thin prep Papanicolaou smear with manual screening 20 U/L 15-37 [facility] Thin prep Papanicolaou smear with manual screening 5 5-15 [facility] Thin prep Papanicolaou smear with manual screening 1.28 ng/dL 0.76-1.46 [facility] Whole blood hemoglobin A1c/t otal hemoglobin ratio (mass fraction)Ordered By: Kelsie Casey on 08-07-2023 HbA1c (Bld) [Mass fraction] 6.2 % 3.8-5.6 [facility] Comment on above: Normal < 5.7 % Predi abetic 5.7 - 6.4 % Diabetic >or= 6.5 % Please note range changes. Absolute lymphocyte countOrd ered By: Alex Etienne on 03-20-2023 Lymphocytes Auto (Unsp spec) [#/Vol] 2.44 10*3/uL 0.83-4.51 [facility] Basophil percentageOrdered B y: Alex Etienne on 03-20-2023 Basophils/100 WBC (Bld) 0.4 % 0-1 [facility] Bilirubin [Mass/Vol] 0.30 mg/dL 0.20-1.00 [facility] Comment on above: For patients on eltr ombopag therapy, use of Dimension [place] TBIL is not recommended. Chloride [Moles/Vol] 105 mmol/L 98-107 [facility] Eosinophils/100 WBC (Bld) 1.0 % 0-5 [facility] Glucose [Mass/Vol] 151 mg/dL 74-106 [facility] Comment on above: Fasting Glucose resu lt greater than or equal to 126 mg/dL suggests DIABETES MELLITUS per A.D.A. criteria. Neutrophils (Bld) [#/Vol] 8.2 10*3/uL 2.0-7.7 [facility] Neutrophils/100 WBC (Bld) 70.7 % 47-70 [facility] Potassium [Moles/Vol] 3.5 mmol/L 3.5-5.1 [facility] Protein [Mass/Vol] 7.7 g/dL 6.4-8.2 [facility] Sodium [Moles/Vol] 138 mmol/L 136-145 [facility] WBC (Bld) [#/Vol] 11.6 10*3/uL 4.4-11.0 [facility] Blood erythrocytes count (nu mber/volume)Ordered By: Alex Etienne on 03-20-2023 RBC (Bld) [#/Vol] 4.84 10*6/uL 4.2-5.4 [facility] Blood hemoglobin measurement (mass/volume)Ordered By: Alex Etienne on 03-20-2023 Hemoglobin (Bld) [Mass/Vol] 14.0 g/dL 12.0-15.0 [facility] Blood lymphocytes/100 leukoc ytesOrdered By: lAex Etienne on 03-20-2023 Lymphocytes/100 WBC (Bld) 21.1 % 19-41 [facility] Blood monocytes/100 leukocyt esOrdered By: Alex Etienne on 03-20-2023 Monocytes/100 WBC (Bld) 6.5 % 0-10 [facility] Blood platelet mean volumeOr dered By: Alex Etienne on 03-20-2023 Platelet mean volume (Bld) [Entitic vol] 11.7 fL 6.2-12.0 [facility] Determination of erythrocyte mean corpuscular volume (MCV)Ordered By: Alex Etienne on 03-20-2023 MCV (RBC) [Entitic vol] 90.1 fL 81-99 [facility] Hematocrit Auto (Bld) [Volum e fraction]Ordered By: Alex Etienne on 03-20-2023 Hematocrit (Bld) [Volume fraction] 43.6 % 37-47 [facility] Laboratory - Chemistry and C hemistry - challengeOrdered By: Alex Etienne on 03-20-2023 ALP [Catalytic activity/Vol] 94 U/L 45-117 [facility] ALT [Catalytic activity/Vol] 35 U/L 13-56 [facility] CO2 [Moles/Vol] 26.0 mmol/L 21.0-32.0 [facility] Globulin (S) [Mass/Vol] 4.2 g/dL 2.2-4.2 [facility] Urea nitrogen/Creatinine [Mass ratio] 15.9 mg/mg 10-20 [facility] Laboratory - Hematology and Cell countsOrdered By: Alex Etienne on 03-20-2023 Erythrocyte distribution width (RBC) [Entitic vol] 43.1 fL 35.1-43.9 [facility] Erythrocyte distribution width (RBC) [Ratio] 13.1 % 11.6-14.6 [facility] Immature granulocytes/100 WBC (Bld) 0.300 % 0.0-0.9 [facility] Comment on above: IG% - Immature Granu locytes (promyelocytes, myelocytes and metamyelocytes) > 1% indicates that a LEFT SHIFT is Present. MCH (RBC) [Entitic mass] 28.9 pg 27.0-32.0 [facility] Nucleated RBC/100 WBC (Bld) [Ratio] 0 % 0-5 [facility] MCHC Auto (RBC) [Mass/Vol]Or dered By: Alex Etienne on 03-20-2023 MCHC (RBC) [Mass/Vol] 32.1 g/dL 32-36 [facility] No Panel InformationOrdered By: Alex Etienne on 03-20-2023 Estimated GFR (MDRD) Amer 110 mL/min >60 [facility] Comment on above: GFR Calc Estimated GFR (MDRD) Non-Af Amer 91 mL/min >60 [facility] Comment on above: Non- GFR Calc Thyroid Stimulating Hormone (TSH) 1.19 uIU/mL 0.358-3.74 [facility] Vitamin D 25-Hydroxy 73.9 ng/mL [facility] Comment on above: Vitamin D 25(OH) Sta tus Range Deficiency <20 ng/mL (50nmol/L) Insufficiency 20 - 30 ng/mL (50 - 75 nmol/L) Sufficiency 30 - 100 ng/mL (75 - 250 nmol/L) Toxicity >100 ng/mL (>250 nmol/L) Platelets bldOrdered By: Dilia deborah Gordonke on 03-20-2023 Platelets (Bld) [#/Vol] 298 10*3/uL 150-450 [facility] Serum or plasma albumin kate urement (mass/volume)Ordered By: Alex Etienne on 03-20-2023 Albumin [Mass/Vol] 3.5 g/dL 3.2-5.0 [facility] Serum or plasma albumin/glob ulin mass ratioOrdered By: [facility] on 03-20-2023 Albumin/Globulin [Mass ratio] 0.8 {ratio} 0.9-2.4 [facility] Serum or plasma calcium kate urement (mass/volume)Ordered By: Alex Etienne on 03-20-2023 Calcium [Mass/Vol] 8.8 mg/dL 8.5-10.1 [facility] Serum or plasma creatinine m easurement (mass/volume)Ordered By: Alex Etienne on 03-20-2023 Creatinine [Mass/Vol] 0.75 mg/dL 0.55-1.02 [facility] Comment on above: The validity of the calculated GFR & GFRAA in patients over 70 years has not been determined. Clinical correlation is essential. Serum or plasma urea nitroge n measurement (mass/volume)Ordered By: Alex Etienne on 03-20-2023 Urea nitrogen [Mass/Vol] 12 mg/dL 7-18 [facility] Thin prep Papanicolaou smear with manual screeningOrdered By: Alex Etienne on 03-20-2023 Thin prep Papanicolaou smear with manual screening 18 U/L 15-37 [facility] Thin prep Papanicolaou smear with manual screening 7 5-15 [facility] Whole blood hemoglobin A1c/t otal hemoglobin ratio (mass fraction)Ordered By: Etiennejae Etienne on 03-20-2023 HbA1c (Bld) [Mass fraction] 6.1 % 3.8-5.6 [facility] Comment on above: Normal < 5.7 % Predi abetic 5.7 - 6.4 % Diabetic >or= 6.5 % Please note range changes. Laboratory - Chemistry and C hemistry - challengeOrdered By: Kelsie Casey on 12-30-2022 Free T4 [Mass/Vol] 1.09 ng/dL 0.76-1.46 [facility] No Panel InformationOrdered By: Kelsie Casey on 12-30-2022 Thyroid Stimulating Hormone (TSH) 2.28 uIU/mL 0.358-3.74 [facility] CNCOon 11-05-2022 CNCO Letter Text Normal [facility] CNOVon 10-24-2022 CNOV Office Visit (OBGYWM ) ANN FLORES ([id number]) 1985 F Date Time Provider Department 10/24/22 10:30 AM PREET SAUCEDO During your visit today, we recorded the following information about you: Blood pressure Weight Height 100/62 101.8 kg 1.702 m Preet Saucedo MD 10/24/2022 11:20 AM Signed Wool Tamper offered: Patient declinesMaxine Miller is a 37 year old who presents for an annual gynecologic exam without complaints. Menses: no menses - Mirena IUD. 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 PAST MEDICAL HISTORY Diagnosis Date Abnormal Pap smear of cervix 2012 ascus 2019 Cervical high risk HPV (human papillomavirus) test positive 2015 PAST SURGICAL HISTORY Procedure Laterality Date SECTION [...] medication updated:Yes EXAM: BP 100/62 Ht 5' 7" (1.70m) Wt 224 lb 6.4 oz (101.8kg) [...] external genitalia normal, normal Bartholin's glands, urethra, [place]'s glands, no vulvar lesions, no cervical lesions, [...] up one year or sooner as needed Preet Saucedo DO Referring Provider: SELF [200] Allergies As of Date: 10/24/2022 (No Known Allergies) Date Reviewed: 10/24/2022 Reviewed by: Rupali Aburto MA - Fully Assessed Reason for Visit: Well Woman [1463] Primary Visit Diagnosis:Encounter for gynecological examination (general) (routine) without abnormal findings [Z01.419] Other Visit Diagnoses:Special screening examination for human papillomavirus (HPV) [Z11.51] Screening for cervical cancer [Z12.4] Order(s):PAP TEST [[id number]] Order #: [id number]. #:[id number] Prescriptions as of 10/24/2022 - buPROPion XL (WELLBUTRIN XL) 150 mg 24 hr tablet Take 150 mg by mouth once daily. - levothyroxine (SYNTHROID) 88 mcg tablet 200 mcg. - ergocalciferol, vitamin D2, (VITAMIN D2 ORAL) Take by mouth. - ascorbic acid (VITAMIN C ORAL) Take by mouth. - ferrous sulfate (IRON ORAL) Take by mouth. - BIOTIN ORAL Take by mouth. - psyllium seed, with dextrose, (FIBER ORAL) Take by mouth. - levonorgestrel (MIRENA) 20 mcg/24 hours (5 yrs) 52 mg IUD 1 Each by INTRAUTERINE route as directed. Problem List As Of Date 10/24/2022 Noted Resolved Obesity, Class I, BMI 30-34.9 [E66.9] 08/28/2021 Disposition: Return in 1 year (on 10/25/2023) for Annual Exam. Follow-up and Disposition History for Encounter Date Provider Department Center 10/24/2022 [id number] SAUCEDO (more content not included)... Normal [facility] HPV W/GENOTYPE THIN PREPon 0 10-24-2022 HPV 16 Ag Ql (Unsp spec) Negative Normal Neg ative for HPV DNA high risk type 16 by PCR [facility] Comment on above: Order Comment: Speci men Type: FLUID SPECIMEN Ordering Facility: [facility] Address: [address] [id number] Performed By: #### H PVHRT #### [facility] CLIA [id number] [address] [facility] [id number], [place] [address] [place] HPV 18 Ag Ql (Unsp spec) Negative Normal Neg ative for HPV DNA high risk type 18 by PCR [facility] Comment on above: Order Comment: Speci men Type: FLUID SPECIMEN Ordering Facility: [facility] Address: [address] [place] [address] Performed By: #### H PVHRT #### [facility] CLIA [id number] [address] [place] [address] [place] HPV 31+33+35+39+45+51+52+56+ 58+59+66+68 DNA KAMLA+probe Ql (Cvx) Negative for HPV DNA high risk types: 31,33,35,39,45,51,52, 56,58,59,66,68 by PCR. Normal Negative for HPV DNA high risk types: 31,33,35,39,4 5,51,52,56,58 ,59,66,68 by PCR. [facility] Comment on above: Order Comment: Speci men Type: FLUID SPECIMEN Ordering Facility: [facility] Address: [address] [place] [address] Performed By: #### H PVHRT #### [facility] CLIA [id number] [address] [place] [address] [place] PAP TESTon 10-24-2022 CASE REPORT Normal [facility] Comment on above: Order Comment: Speci men Type: FLUID SPECIMEN Ordering Facility: [facility] Address: [address] [place] [address] Result Comment: Gyne cologic Cytology Report Case: [id number] Authorizing Provider: Preet Saucedo MD Collected: 10/24/2022 10:55 AM Ordering Location: OB/Gynecology Received: 10/24/2022 11:56 AM First Screen: Gem Wiseman Pathologist: Lluvia Mccarthy MD Specimen: Pap Test, ThinPrep, Cervix Performed By: #### L [id number] #### [facility] CLIA [id number] [address] [place] [address] [place] CLINICAL HISTORY, CYTOLOGY, PEDIATRICIAN ACTIVE PRACTICE Intra Uterine Device Normal [facility] Comment on above: Order Comment: Speci men Type: FLUID SPECIMEN Ordering Facility: [facility] Address: [address] [address] Performed By: #### L [id number] #### [facility] CLIA [id number] [place] CYTOLOGY INTERPRETATION PAP Abnormal [facility] Comment on above: Order Comment: Speci men Type: FLUID SPECIMEN Ordering Facility: [facility] Address: [address] Result Comment: Epit helial cell abnormality. Atypical squamous cells of undetermined significance (ASC-US) Performed By: #### L [id number] #### [facility] CLIA [id number] [facility] [address] FINAL DIAGNOSIS A - Cervix Normal [facility] Comment on above: Order Comment: Speci men Type: FLUID SPECIMEN Ordering Facility: [facility] Address: [address] [address] Result Comment: Sati sfactory for interpretation Epithelial cell abnormality. Atypical squamous cells of undetermined significance (ASC-US) Performed By: #### L [id number] #### [facility] CLIA [id number] [facility] [address] [place] FINAL PERFORMING LAB Normal [facility] Comment on above: Order Comment: Speci men Type: FLUID SPECIMEN Ordering Facility: [facility] Address: [address] Result Comment: Tech nical component, production support specialist screening performed at [facility], [address] [facility] [address] CLIA# [id number] Diagnostic interpretation performed at [facility], [address] [facility] [address] CLIA# [id number] Electrical Troubleshooter: Raffaele Fernandez M.D. Performed By: #### L [id number] #### [facility] CLIA [id number] [address] [place] [address] [place] HPV REFLEX Auto HPV Normal [facility] Comment on above: Order Comment: Speci men Type: FLUID SPECIMEN Ordering Facility: [facility] Address: [address] [place] [address] Performed By: #### L [id number] #### [facility] CLIA [id number] [address] [place] [address] [place] LMP 09/10/2014 Normal [facility] Comment on above: Order Comment: Speci men Type: FLUID SPECIMEN Ordering Facility: [facility] Address: [address] [place] [address] Performed By: #### L [id number] #### [facility] CLIA [id number] [address] [place] [address] [place] PAP DISCLAIMER COMMENT The Pap Smear is a screening test for cervical cancer. False negative results occur with all screening tests, emphasizing the need for rescreening at recommended intervals, and clinical correlation. Normal [facility] Comment on above: Order Comment: Speci men Type: FLUID SPECIMEN Ordering Facility: [facility] Address: [address] [place] [address] Performed By: #### L [id number] #### [facility] CLIA [id number] [address] [place] [address] [place] PAP TUBE WASHER COMMENT This specimen has been analyzed by the ThinPrep Imaging System, an automated imaging and review system, which assists the laboratory in evaluating cells on ThinPrep Pap tests. Following automated imaging, selected powers from every slide are reviewed by a production support specialist. Normal [facility] Comment on above: Order Comment: Speci men Type: FLUID SPECIMEN Ordering Facility: [facility] Address: [address] [place] [address] Performed By: #### L [id number] #### [facility] CLIA [id number] [address] [place], [place] [address] [address] [place] [facility] Culture, urineOrdered By: Josiah Casey on 10-22-2022 Bacteria identified Cx Nom (U) Positive [facility] Culture, urineOrdered By: Josiah Casey on 10-20-2022 Bacteria identified Cx Nom (U) Positive [facility] No Panel InformationOrdered By: Kelsie Casey on 08-05-2022 Thyroid Stimulating Hormone (TSH) 4.33 uIU/mL 0.358-3.74 [facility] Whole blood hemoglobin A1c/t otal hemoglobin ratio (mass fraction)Ordered By: Kelsie Casey on 08-05-2022 HbA1c (Bld) [Mass fraction] 6.3 % 3.8-5.6 [facility] Comment on above: Normal < 5.7 % Predi abetic 5.7 - 6.4 % Diabetic >or= 6.5 % Please note range changes. Absolute lymphocyte countOrd ered By: Kelsie Casey on 05-23-2022 Lymphocytes Auto (Unsp spec) [#/Vol] 2.90 10*3/uL 0.83-4.51 [facility] Basophil percentageOrdered B y: Kelsie Casey on 05-23-2022 Basophils/100 WBC (Bld) 0.4 % 0-1 [facility] Bilirubin [Mass/Vol] 0.70 mg/dL 0.20-1.00 [facility] Comment on above: For patients on eltr ombopag therapy, use of Dimension [place] TBIL is not recommended. Chloride [Moles/Vol] 104 mmol/L 98-107 [facility] Cholesterol [Mass/Vol] 146 mg/dL <200 [facility] Comment on above: <200 mg/dL Desirable 200-240 mg/dL Borderline >240 mg/dL High Risk Eosinophils/100 WBC (Bld) 1.5 % 0-5 [facility] Glucose [Mass/Vol] 121 mg/dL 74-106 [facility] Comment on above: Fasting Glucose resu lt from 100 to 125 mg/dL suggests IMPAIRED HOMEOSTASIS per A.D.A. criteria. Neutrophils (Bld) [#/Vol] 5.5 10*3/uL 2.0-7.7 [facility] Neutrophils/100 WBC (Bld) 59.4 % 47-70 [facility] Potassium [Moles/Vol] 4.0 mmol/L 3.5-5.1 [facility] Protein [Mass/Vol] 7.7 g/dL 6.4-8.2 [facility] Sodium [Moles/Vol] 140 mmol/L 136-145 [facility] Triglyceride [Mass/Vol] 146 mg/dL <199 [facility] Comment on above: The drugs N-Acetylcy steine and Metamizole may falsely depress this assay.Serum Triglycerides Reference Interval Normal <150 mg/dL Borderline high 150 - 199 mg/dL High 200 - 499 mg/dL Very High > or = 500 mg/dL WBC (Bld) [#/Vol] 9.2 10*3/uL 4.4-11.0 [facility] Blood erythrocytes count (nu mber/volume)Ordered By: Kelsie Casey on 05-23-2022 RBC (Bld) [#/Vol] 5.05 10*6/uL 4.2-5.4 [facility] Blood hemoglobin measurement (mass/volume)Ordered By: Kelsie Casey on 05-23-2022 Hemoglobin (Bld) [Mass/Vol] 15.0 g/dL 12.0-15.0 [facility] Blood lymphocytes/100 leukoc ytesOrdered By: Kelsie Casey on 05-23-2022 Lymphocytes/100 WBC (Bld) 31.5 % 19-41 [facility] Blood monocytes/100 leukocyt esOrdered By: Kelsie Casey on 05-23-2022 Monocytes/100 WBC (Bld) 6.9 % 0-10 [facility] Blood platelet mean volumeOr dered By: Kelsie Casey on 05-23-2022 Platelet mean volume (Bld) [Entitic vol] 11.4 fL 6.2-12.0 [facility] Determination of erythrocyte mean corpuscular volume (MCV)Ordered By: Kelsie Casey on 05-23-2022 MCV (RBC) [Entitic vol] 88.1 fL 81-99 [facility] Hematocrit Auto (Bld) [Volum e fraction]Ordered By: Kelsie Casey on 05-23-2022 Hematocrit (Bld) [Volume fraction] 44.5 % 37-47 [facility] Laboratory - Chemistry and C hemistry - challengeOrdered By: Kelsie Casey on 05-23-2022 ALP [Catalytic activity/Vol] 91 U/L 45-117 [facility] ALT [Catalytic activity/Vol] 67 U/L 13-56 [facility] CO2 [Moles/Vol] 27.0 mmol/L 21.0-32.0 [facility] Cobalamin (Vitamin B12) [Mass/Vol] 452 pg/mL 211-911 [facility] Globulin (S) [Mass/Vol] 3.8 g/dL 2.2-4.2 [facility] Magnesium [Mass/Vol] 2.2 mg/dL 1.6-2.6 [facility] Urea nitrogen/Creatinine [Mass ratio] 20.8 mg/mg 10-20 [facility] - Hematology and Cell countsOrdered By: Kelsie Casey on 05-23-2022 Erythrocyte distribution width (RBC) [Entitic vol] 41.5 fL 35.1-43.9 [facility] Erythrocyte distribution width (RBC) [Ratio] 12.8 % 11.6-14.6 [facility] Immature granulocytes/100 WBC (Bld) 0.300 % 0.0-0.9 [facility] Comment on above: IG% - Immature Granu locytes (promyelocytes, myelocytes and metamyelocytes) > 1% indicates that a LEFT SHIFT is Present. MCH (RBC) [Entitic mass] 29.7 pg 27.0-32.0 [facility] Nucleated RBC/100 WBC (Bld) [Ratio] 0 % 0-5 [facility] MCHC Auto (RBC) [Mass/Vol]Or dered By: Kelsie Casey on 05-23-2022 MCHC (RBC) [Mass/Vol] 33.7 g/dL 32-36 [facility] No Panel InformationOrdered By: Kelsie Casey on 05-23-2022 Estimated GFR (MDRD) Amer 137 mL/min >60 [facility] Comment on above: GFR Calc Estimated GFR (MDRD) Non-Af Amer 114 mL/min >60 [facility] Comment on above: Non- GFR Calc Thyroid Stimulating Hormone (TSH) 4.39 uIU/mL 0.358-3.74 [facility] Vitamin D 25-Hydroxy 47.1 ng/mL [facility] Comment on above: Vitamin D 25(OH) Sta tus Range Deficiency <20 ng/mL (50nmol/L) Insufficiency 20 - 30 ng/mL (50 - 75 nmol/L) Sufficiency 30 - 100 ng/mL (75 - 250 nmol/L) Toxicity >100 ng/mL (>250 nmol/L) Platelets bldOrdered By: Neymar Casey on 05-23-2022 Platelets (Bld) [#/Vol] 277 10*3/uL 150-450 [facility] Serum or plasma albumin kate urement (mass/volume)Ordered By: Kelsie Casey on 05-23-2022 Albumin [Mass/Vol] 3.9 g/dL 3.2-5.0 [facility] Serum or plasma albumin/glob ulin mass ratioOrdered By: Kelsie Casey on 05-23-2022 Albumin/Globulin [Mass ratio] 1.0 {ratio} 0.9-2.4 [facility] Serum or plasma calcium kate urement (mass/volume)Ordered By: Kelsie Casey on 05-23-2022 Calcium [Mass/Vol] 9.2 mg/dL 8.5-10.1 [facility] Serum or plasma cholesterol in HDL measurement (mass/volume)Ordered By: Kelsie Casey on 05-23-2022 Cholesterol in HDL [Mass/Vol] 34 mg/dL >40 [facility] Comment on above: The drugs N-Acetylcy steine and Metamizole may falsely depress this assay. Reference Range HDL <40 mg/dL Low HDL Cholesterol HDL >or= 60 mg/dL High HDL Cholesterol Serum or plasma cholesterol in VLDL measurement (mass/volume)Ordered By: Kelsie Casey on 05-23-2022 Cholesterol in VLDL [Mass/Vol] 29 mg/dL 5-40 [facility] Serum or plasma creatinine m easurement (mass/volume)Ordered By: Kelsie Casey on 05-23-2022 Creatinine [Mass/Vol] 0.63 mg/dL 0.55-1.02 [facility] Comment on above: The validity of the calculated GFR & GFRAA in patients over 70 years has not been determined. Clinical correlation is essential. Serum or plasma ferritin eloy surement (mass/volume)Ordered By: Kelsie Casey on 05-23-2022 Ferritin [Mass/Vol] 259 ng/mL 8-252 [facility] Serum or plasma low density lipoprotein (LDL) cholesterol measurement (mass/volume)Ordered By: Kelsie Casey on 05-23-2022 Cholesterol in LDL [Mass/Vol] 83 mg/dL 0-130 [facility] Serum or plasma urea nitroge n measurement (mass/volume)Ordered By: Kelsie Casey on 05-23-2022 Urea nitrogen [Mass/Vol] 13 mg/dL 7-18 [facility] Thin prep Papanicolaou smear with manual screeningOrdered By: Kelsie Casey on 05-23-2022 Thin prep Papanicolaou smear with manual screening 34 U/L 15-37 [facility] Thin prep Papanicolaou smear with manual screening 9 5-15 [facility] Whole blood hemoglobin A1c/t otal hemoglobin ratio (mass fraction)Ordered By: Kelsie Casey on 05-23-2022 HbA1c (Bld) [Mass fraction] 6.5 % 3.8-5.6 [facility] Comment on above: Normal < 5.7 % Predi abetic 5.7 - 6.4 % Diabetic >or= 6.5 % Please note range changes. Absolute lymphocyte counton 07-31-2021 Lymphocytes Auto (Unsp spec) [#/Vol] 2.95 10*3/uL 0.83-4.51 [facility] Work Phone: Basophil percentageon 2021 Basophils/100 WBC (Bld) 0.5 % 0-1 [facility] Work Phone: Bilirubin [Mass/Vol] 0.30 mg/dL 0.20-1.00 [facility] Work Phone: Comment on above: For patients on eltr ombopag therapy, use of Dimension [place] TBIL is not recommended. Chloride [Moles/Vol] 106 mmol/L 98-107 [facility] Work Phone: Eosinophils/100 WBC (Bld) 1.3 % 0-5 [facility] Work Phone: Glucose [Mass/Vol] 121 mg/dL 74-106 [facility] Work Phone: Comment on above: Fasting Glucose resu lt from 100 to 125 mg/dL suggests IMPAIRED HOMEOSTASIS per A.D.A. criteria. Neutrophils (Bld) [#/Vol] 4.6 10*3/uL 2.0-7.7 [facility] Work Phone: Neutrophils/100 WBC (Bld) 55.4 % 47-70 [facility] Work Phone: Potassium [Moles/Vol] 3.8 mmol/L 3.5-5.1 [facility] Work Phone: Protein [Mass/Vol] 7.4 g/dL 6.4-8.2 [facility] Work Phone: Sodium [Moles/Vol] 138 mmol/L 136-145 [facility] Work Phone: WBC (Bld) [#/Vol] 8.3 10*3/uL 4.4-11.0 [facility] Work Phone: Blood erythrocytes count (nu mber/volume)on 07-31-2021 RBC (Bld) [#/Vol] 4.72 10*6/uL 4.2-5.4 [facility] Work Phone: Blood hemoglobin measurement (mass/volume)on 07-31-2021 Hemoglobin (Bld) [Mass/Vol] 14.1 g/dL 12.0-15.0 [facility] Work Phone: Blood lymphocytes/100 leukoc yteson 07-31-2021 Lymphocytes/100 WBC (Bld) 35.7 % 19-41 [facility] Work Phone: Blood monocytes/100 leukocyt eson 07-31-2021 Monocytes/100 WBC (Bld) 6.9 % 0-10 [facility] Work Phone: [phone] Blood platelet mean volumeon 07-31-2021 Platelet mean volume (Bld) [Entitic vol] 11.4 fL 6.2-12.0 [facility] Work Phone: [phone] Determination of erythrocyte mean corpuscular volume (MCV)on 07-31-2021 MCV (RBC) [Entitic vol] 89.2 fL 81-99 [facility] Work Phone: Hematocrit Auto (Bld) [Volum e fraction]on 07-31-2021 Hematocrit (Bld) [Volume fraction] 42.1 % 37-47 [facility] Work Phone: Laboratory - Chemistry and C hemistry - challengeon 07-31-2021 ALP [Catalytic activity/Vol] 78 U/L 45-117 [facility] Work Phone: [phone] ALT [Catalytic activity/Vol] 38 U/L 13-56 [facility] Work Phone: [phone] CO2 [Moles/Vol] 25.0 mmol/L 21.0-32.0 [facility] Work Phone: [phone] Globulin (S) [Mass/Vol] 3.9 g/dL 2.2-4.2 [facility] Work Phone: [phone] Urea nitrogen/Creatinine [Mass ratio] 16.4 mg/mg 10-20 [facility] Work Phone: [phone] Laboratory - Hematology and Cell countson 07-31-2021 Erythrocyte distribution width (RBC) [Entitic vol] 43.3 fL 35.1-43.9 [facility] Work Phone: [phone] Erythrocyte distribution width (RBC) [Ratio] 13.2 % 11.6-14.6 [facility] Work Phone: [phone] Immature granulocytes/100 WBC (Bld) 0.200 % 0.0-0.9 [facility] Work Phone: [phone] Comment on above: IG% - Immature Granu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 [facility] Work Phone: 1(915) 726-936204-28-2025 Evaluation note* Diagnosis Onset Date Resolution Status Admit Date Contusion of left forearm acute September 05, 2024 8:48am Spider veins acute September 23 2:17pm Atypical squamous cell og es of undetermined significance (ASCUS) on cerv acute November 17, 2024 8:14am Encounter for routine gynecological examination noneactive November 082024 8:14am [facility] Work Phone: 1(167) 289-331204-28-2025 Evaluation note* Diagnosis Onset Date Resolution Status Admit Date Contusion of left forearm acute September 05, 2024 8:48am Spider veins acute September 23 2:17pm Atypical squamous cell og es of undetermined significance (ASCUS) on cerv acute November 17, 2024 8:14am Encounter for routine gynecological examination noneactive November 082024 8:14am Acute bronchitis acute November 10:33am Acute sinusitis acute November 10:33am [facility] Work Phone: 1(177) 630-125302-08-2025 Evaluation note* Diagnosis Onset Date Resolution Status Admit Date Intertrigo acute June 18, 2024 12:02pm Contusion of left forearm acute September 05, 2024 8:48am [facility] Work Phone: 1(994) 698-386202-08-2025 Evaluation note* Diagnosis Onset Date Resolution Status Admit Date Intertrigo acute June 18, 2024 12:02pm Contusion of left forearm acute September 05, 2024 8:48am Spider veins acute September 23 2:17pm [facility] Work Phone: 1(272) 799-754801-10-2025 Evaluation note* Diagnosis Onset Date Resolution Status Admit Date Acute upper respiratory infection acute May 20 7:34am Intertrigo acute June 18, 2024 12:02pm [facility] Work Phone: 1(744) 243-539904-18-2024 NotePap Smear Specimen AdequacyApril 2023 5:50pmComment.Satisfactory for evaluation. No endocervical component is identified.[facility] A#[id number] Hospital Cleveland WestComment on above:Satisfactory for evaluation. No endocervical component is identified. 02-06-2023 Miscellaneous Notes* Telephone Encounter - Preet Saucedo MD - 02/06/2023 3:49 PM EDT I would not recommend checking hormone levels unless she is having other symptoms. If she is havingother symptoms, she needs an appointment to discuss. Recommend starting with her PCP if she is noticing mood changes [facility] NoteHNO ID: [id number] Author: Preet Saucedo MD Service: ? Author Type: Physician Type: Progress Notes Filed: 10/24/2022 11:20 AM Note Text: Wool Tamper offered: Patient declines. Ann is a 37 year old who presents for an annual gynecologic exam without complaints. Menses: no menses - Mirena IUD. 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 History of Present illness Narrative* Preet Saucedo MD - 10/24/2022 10:21 AM EDT Wool Tamper offered: Patient declines. Ann is a 37 year old who presents for an annual gynecologic exam without complaints. Menses: no menses - Mirena IUD. 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 No abnormal discharge.. 2 lumps in groin, no drainage, there a couple ofweeks. Menses: rare, mirena in. 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 Comments: Sexual Activity: Yes; Male Contraception: [...] and current medication updated:Yes EXAM: Ht 5' 6.5" (1.69m) Wt 220 lb (99.8kg) LMP 09/10/2014 [...] external genitalia normal, normal Bartholin's glands, urethra, Edinburg's glands, no vulvar lesions, no cervical lesions, [...] reassured Kely Bustillo MD [facility]Reason for visit Narrative* Chief Complaint EORDER 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) Reason for Visit [id number] Intrauterine device surveillance Women's annual routine gynecological examination [facility] Work Phone: Evaluation noteNo assessment information available [facility] Work Phone: Evaluation note* Diagnosis Encounter for gynecological examination (general) (routine) without abnormal findings- Primary Obesity, Class I, BMI 30-34.9 Obesity, unspecified documented in this encounter [facility] note* Diagnosis Encounter for gynecological examination (general) (routine) without abnormal findings- Primary Special screening examination for human papillomavirus (HPV) Screening for cervical cancer Screening for malignant neoplasm of the cervix documented in this encounter [facility] note* Diagnosis Onset Date Resolution Status [id number] acute Intrauterine device surveillance acute Women's annual routine gynecological examination noneactive [facility] Work Phone: Reason for referral (narrative)No reason for referral information availableWRegency Hospital [facility] Work Phone: Summary Purpose Family History No Family History Records Found Relationship Condition Age at Onset Recorded Date/T baylee Not Specified Diabetes mellitus Unknown Malignant neoplasm Unknown Hypertension Unknown Relationship Condition Age at Onset Recorded Date/T baylee grandmother Malignant neoplasm Unknown mother Hypertension Unknown aunt Diabetes mellitus Unknown grandfather Malignant neoplasm of skin Unknown father Cerebrovascular accident (CVA) Unknown Advance Directives No Advanced Directives Records Found Advance Directive Response Recorded Date/ Time Living Will No March 08 3:07pm 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 No March 08, 2018 3:07pm Advance Directive Response Recorded Date/ Time Living Will No March 08 2:07pm 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 No March 08, 2018 2:07pm Advance Directive Response Recorded Date/ Time Living Will No July 16, 2023 9:30am 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 No July 15 9:30am Chief Complaint and Reason for Visit Chief Complaint TAIL BONE PAIN Chief Complaint MASTODYNIA Chief Complaint MASTODYNIA cervical somatic dysfunction tension migraine Chief Complaint cervical somatic dys function tension migraine Chief Complaint EORDER Chief Complaint Admit Date SORE THROAT, COUGH, HEADACHE May 7:34am 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 May 20, 2024 7 :38am YEAST INFECTION June 18, 2024 1 2:02pm Reason for Visit Admit Date Acute upper respiratory infection Januar 2024 7:34am Intertrigo June 18, 2024 1 2:02pm Chief Complaint Admit Date YEAST INFECTION June 18, 2024 1 2:02pm L WRIST INJURY September 05, 2024 8:4 8am injury September 05, 2024 9:0 7am Discoloration of ankles September 23, 2024 2 :17pm Reason for Visit Admit Date Intertrigo June 18, 2024 1 2:02pm Contusion of left forearm September 05 8:48am Reason for Visit Admit Date Intertrigo June 18, 2024 1 2:02pm Contusion of left forearm September 05 8:48am Spider veins September 23, 2024 2:17p m Chief Complaint Admit Date L WRIST INJURY September 05, 2024 8:4 8am injury September 05, 2024 9:0 7am Discoloration of ankles September 23, 2024 2 :17pm 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) November 17, 2024 8:14 am Reason for Visit Admit Date Contusion of left forearm September 05 8:48am Spider veins September 23, 2024 2:17p m Atypical squamous cell og es of undetermined significance (ASCUS) on cerv November 17, 2024 8:14am Encounter for routine gynecological exam ination November 17, 2024 8:14am Chief Complaint Admit Date L WRIST INJURY September 05, 2024 8:4 8am injury September 05, 2024 9:0 7am Discoloration of ankles September 23, 2024 2 :17pm 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) November 17, 2024 8:14 am Cough November 25, 2024 10:3 3am CHEST XRAY PA & LAT November 25, 2024 10:4 4am Reason for Visit Admit Date Contusion of left forearm September 05 8:48am Spider veins September 23, 2024 2:17p m Atypical squamous cell og es of undetermined significance (ASCUS) on cerv November 17, 2024 8:14am Encounter for routine gynecological exam ination November 17, 2024 8:14am Acute bronchitis November 25, 2024 10:3 3am Acute sinusitis November 25, 2024 10:3 3am Chief Complaint Admit Date Discoloration of ankles September 23, 2024 2 :17pm 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) November 17, 2024 8:14 am Cough November 25, 2024 10:3 3am CHEST XRAY PA & LAT November 25, 2024 10:4 4am Reason for Visit Admit Date Spider veins September 23, 2024 2:17p m Atypical squamous cell og es of undetermined significance (ASCUS) on cerv November 17, 2024 8:14am Encounter for routine gynecological exam ination November 17, 2024 8:14am Acute bronchitis November 25, 2024 10:3 3am Acute sinusitis November 25, 2024 10:3 3am Chief Complaint Admit Date Discoloration of ankles September 23, 2024 2 :17pm 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) November 17, 2024 8:14 am Cough November 25, 2024 10:3 3am CHEST XRAY PA & LAT November 25, 2024 10:4 4am REEVAL January 12, 2025 12:17pm Reason for Visit Admit Date Spider veins September 23, 2024 2:17p m Atypical squamous cell og es of undetermined significance (ASCUS) on cerv November 17, 2024 8:14am Encounter for routine gynecological exam ination November 17, 2024 8:14am Acute bronchitis November 25, 2024 10:3 3am Acute sinusitis November 25, 2024 10:3 3am Segmental and somatic dysfunction of cer vical region January 12, 2025 12:17pm Segmental and somatic dysfunction of tho racic region January 12, 2025 12:17pm Additional Source Comments INFORMATION SOURCE (unrecogn ized section and content) DATE CREATED AUTHOR 11/04/2017 Valerie Zamora [facility] DATE CREATED AUTHOR AUTHOR'S TBIURCIOIZ ATION 11/04/2017 [facility] DATE CREATED AUTHOR AUTHOR'S ORGANIZ ATION 11/04/2017 [facility] DATE CREATED AUTHOR AUTHOR'S ORGANIZ ATION 11/06/2022 [facility] DATE CREATED AUTHOR AUTHOR'S ORGANIZ ATION 02/01/2025 [facility] Goals (unrecognized section and content) Goals may be documented in a n alternate sectionGoals may be documented in an alternate sectionGoals may be documented in an alternate sectionGoals may be documented in an alternate sectionGoals may be documented in an alternate sectionGoals may be documented in an alternate sectionGoals may be documented in an alternate sectionGoals may be documented in an alternate sectionGoals may be documented in an alternate sectionGoals may be documented in an alternate sectionGoals may be documented in an alternate section Source Comments (unrecognize d section and content) In the event this informatio n is protected by the Federal Confidentiality of Alcohol and Drug Abuse Patient Records regulations: The Federal rules restrict any use of the information to criminally investigate or prosecute any alcohol or drug abuse patient.[facility] FoundationIn the event this information is protected by the Federal Confidentiality of Alcohol and Drug Abuse Patient Records regulations: The Federal rules restrict any use of the information to criminally investigate or prosecute any alcohol or drug abuse patient.[facility] FoundationIn the event this information is protected by the Federal Confidentiality of Alcohol and Drug Abuse Patient Records regulations: The Federal rules restrict any use of the information to criminally investigate or prosecute any alcohol or drug abuse patient.[facility] Reason for Visit (unrecogniz ed section and content) Reason Comments Yearly Exam Reason Comments [facility] Teams (unrecognized sec tion and content) Arrt Technologist Relationship Specialty Start Date End Date (Historical), No Pcp PCP - General 10/01/15 Team Status: Active Member Role Status Dates Dr. Arden Mendes MD Family Provider Active Kelsie Casey DO Primary Care Provider Active Team Status: Inactive Member Role Status Dates Kelsie Casey , Primary Care Provi eduarda, Attending Provider, Referring Provider Active Arrt Technologist Relationship Specialty Start Date End Date (Historical), No Pcp PCP - General 10/01/15 Team Status: Inactive Member Role Status Dates Kelsie Casey DO Primary Care Provider, Attending Provider Active Arrt Technologist Relationship Specialty Start Date End Date (Historical), No Pcp PCP - General 10/01/15 Team Status: Inactive Member Role Status Dates Kelsie Casey DO Primary Care Provider Active Alex Etienne MD Attending Provider Active Team Status: Inactive Member Role Status Dates Kelsie Casey DO Primary Care Provider, Referring Provider Active KEATON Palm Attending Provider Active Team Status: Inactive Member Role Status Dates Kelsie Casey DO Primary Care Provider Active KEATON Palm Attending Provider, Referring Pr ovider Active Team Status: Active Member Role Status Dates Dr. Ardne Mendes MD Family Provider Active Alex Etienne MD Primary Care Provider Active Team Status: Inactive Member Role Status Dates Alex Etienne MD Primary Care Provider Active St art: May 20, 2024 End: May 20, 2024 Alex Etienne MD Referring Provider Active Start : May 20, 2024 End: May 20, 2024 Dane JACKMAN PA Attending Provider Active Sta rt: May 20, 2024 End: May 20, 2024 Team Status: Inactive Member Role Status Dates Alex Etienne MD Primary Care Provider Active St art: June 18, 2024 End: June 18, 2024 Alex Etienne MD Referring Provider Active Start : June 18, 2024 End: June 18, 2024 KEATON Prince Attending Provider Active Start: June 18, 2024 End: June 18, 2024 Team Status: Inactive Member Role Status Juliette Etienne MD Primary Care Provider Active St art: June 21, 2024 End: June 21, 2024 Alex Etienne MD Attending Provider Active Start : June 21, 2024 End: June 21, 2024 Alex Etienne MD Referring Provider Active Start : June 21, 2024 End: June 21, 2024 Team Status: Inactive Member Role Status Juliette Etienne MD Primary Care Provider Active St art: August 11, 2024 End: August 11, 2024 Alex Etienne MD Attending Provider Active Start : August 11, 2024 End: August 11, 2024 Alex Etienne MD Referring Provider Active Start : August 11, 2024 End: August 11, 2024 Team Status: Inactive Member Role Status Juliette Etienne MD Primary Care Provider Active St art: September 05, 2024 End: September 05, 2024 Alex Etienne MD Referring Provider Active Start : September 05, 2024 End: September 05, 2024 Omid JACKMAN PA Attending Provider Active Start: September 05, 2024 End: September 05, 2024 Team Status: Inactive Member Role Status Juliette Etienne MD Primary Care Provider Active St art: September 05, 2024 End: September 05, 2024 Omid JACKMAN PA Attending Provider Active Start: September 05, 2024 End: September 05, 2024 Omid JACKMAN PA Referring Provider Active Start: September 05, 2024 End: September 05, 2024 Team Status: Inactive Member Role Status Juliette Etienne MD Primary Care Provider Active St art: September 23, 2024 End: September 23, 2024 Alex Etienne MD Referring Provider Active Start : September 23, 2024 End: September 23, 2024 GASPER Woodruff Attending Provider Active Star t: September 23, 2024 End: September 23, 2024 Team Status: Inactive Member Role Status Juliette Etienne MD Primary Care Provider Active St art: October 05, 2024 End: October 05, 2024 Alex Etienne MD Attending Provider Active Start : October 05, 2024 End: October 05, 2024 Alex Etienne MD Referring Provider Active Start : October 05, 2024 End: October 05, 2024 Team Status: Active Member Role/Relationship Status Dates Dr. Arden Mendes MD Family Provider Active Alex Etienne MD Primary Care Provider Active Team Status: Inactive Member Role/Relationship Status Juliette Etienne MD Primary Care Provider Active St art: August 11, 2024 End: August 11, 2024 Alex Etienne MD Attending Provider Active Start : August 11, 2024 End: August 11, 2024 Alex Etienne MD Referring Provider Active Start : August 11, 2024 End: August 11, 2024 Team Status: Inactive Member Role/Relationship Status Juliette Etienne MD Primary Care Provider Active St art: September 05, 2024 End: September 05, 2024 Alex Etienne MD Referring Provider Active Start : September 05, 2024 End: September 05, 2024 Omid JACKMAN PA Attending Provider Active Start: September 05, 2024 End: September 05, 2024 Team Status: Inactive Member Role/Relationship Status Juliette Etienne MD Primary Care Provider Active St art: September 05, 2024 End: September 05, 2024 Omid JACKMAN PA Attending Provider Active Start: September 05, 2024 End: September 05, 2024 Omid JACKMAN PA Referring Provider Active Start: September 05, 2024 End: September 05, 2024 Team Status: Inactive Member Role/Relationship Status Juliette Etienne MD Primary Care Provider Active St art: September 23, 2024 End: September 23, 2024 Alex Etienne MD Referring Provider Active Start : September 23, 2024 End: September 23, 2024 GASPER Woodruff Attending Provider Active Star t: September 23, 2024 End: September 23, 2024 Team Status: Inactive Member Role/Relationship Status Juliette Etienne MD Primary Care Provider Active St art: October 05, 2024 End: October 05, 2024 Alex Etienne MD Attending Provider Active Start : October 05, 2024 End: October 05, 2024 Alex Etienne MD Referring Provider Active Start : October 05, 2024 End: October 05, 2024 Team Status: Inactive Member Role/Relationship Status Juliette Etienne MD Primary Care Provider Active St art: November 17, 2024 End: November 17, 2024 Alex Etienne MD Referring Provider Active Start : November 17, 2024 End: November 17, 2024 GEORGIE PalmC Attending Provider Active Start: November 17, 2024 End: November 17, 2024 Team Status: Inactive Member Role/Relationship Status Juliette Etienne MD Primary Care Provider Active St art: November 17, 2024 End: November 17, 2024 KEATON Palm Attending Provider Active Start: November 17, 2024 End: November 17, 2024 KEATON Palm Referring Provider Active Start: November 17, 2024 End: November 17, 2024 Team Status: Inactive Member Role/Relationship Status Juliette Etienne MD Primary Care Provider Active St art: November 25, 2024 End: November 25, 2024 Alex Etienne MD Referring Provider Active Start : November 25, 2024 End: November 25, 2024 Dane JACKMAN PA Attending Provider Active Sta rt: November 25, 2024 End: November 25, 2024 Team Status: Active Member Role/Relationship Status Juliette Etienne MD Primary Care Provider Active St art: November 25, 2024 Dane JACKMAN PA Attending Provider Active Sta rt: November 25, 2024 Dane JACKMAN PA Referring Provider Active Sta rt: November 25, 2024 Team Status: Inactive Member Role/Relationship Status Juliette Etienne MD Primary Care Provider Active St art: November 25, 2024 End: November 25, 2024 Dane JACKMAN PA Attending Provider Active Sta rt: November 25, 2024 End: November 25, 2024 Dane JACKMAN PA Referring Provider Active Sta rt: November 25, 2024 End: November 25, 2024 Team Status: Active Member Role/Relationship Status Juliette Etienne MD Primary Care Provider Active Team Status: Inactive Member Role/Relationship Status Juliette Etienne MD Primary Care Provider Active St art: September 23, 2024 End: September 23, 2024 Alex Etienne MD Referring Provider Active Start : September 23, 2024 End: September 23, 2024 GASPER Woodruff Attending Provider Active Star t: September 23, 2024 End: September 23, 2024 Team Status: Inactive Member Role/Relationship Status Juliette Etienne MD Primary Care Provider Active St art: October 05, 2024 End: October 05, 2024 Alex Etienne MD Attending Provider Active Start : October 05, 2024 End: October 05, 2024 Alex Etienne MD Referring Provider Active Start : October 05, 2024 End: October 05, 2024 Team Status: Inactive Member Role/Relationship Status Juliette Etienne MD Primary Care Provider Active St art: November 17, 2024 End: November 17, 2024 Alex Etienne MD Referring Provider Active Start : November 17, 2024 End: November 17, 2024 KEATON Palm Attending Provider Active Start: November 17, 2024 End: November 17, 2024 Team Status: Inactive Member Role/Relationship Status Juliette Etienne MD Primary Care Provider Active St art: November 17, 2024 End: November 17, 2024 KEATON Palm Attending Provider Active Start: November 17, 2024 End: November 17, 2024 KEATON Palm Referring Provider Active Start: November 17, 2024 End: November 17, 2024 Team Status: Inactive Member Role/Relationship Status Juliette Etienne MD Primary Care Provider Active St art: November 25, 2024 End: November 25, 2024 Alex Etienne MD Referring Provider Active Start : November 25, 2024 End: November 25, 2024 GASPER Pavon Attending Provider Active Sta rt: November 25, 2024 End: November 25, 2024 Team Status: Inactive Member Role/Relationship Status Juliette Etienne MD Primary Care Provider Active St art: November 25, 2024 End: November 25, 2024 GASPER Pavon Attending Provider Active Sta rt: November 25, 2024 End: November 25, 2024 GASPER Pavon Referring Provider Active Sta rt: November 25, 2024 End: November 25, 2024 Team Status: Inactive Member Role/Relationship Status Juliette Etienne MD Primary Care Provider Active St art: January 05, 2025 End: January 05, 2025 Alex Etienne MD Attending Provider Active Start : January 05, 2025 End: January 05, 2025 Alex Etienne MD Referring Provider Active Start : January 05, 2025 End: January 05, 2025 Team Status: Inactive Member Role/Relationship Status Dates Alex Etienne MD Primary Care Provider Active St art: January 12, 2025 End: January 12, 2025 Alex Etienne MD Referring Provider Active Start : January 12, 2025 End: January 12, 2025 Dr. Kailey Huerta , STEPHANIE Attending Provider Active S tart: January 12, 2025 End: January 12, 2025 FOR RECORDS PERTAINING TO PATIENTS WHO ARE [...] BE BASED ON THE PRIMARY CLINICAL RECORDS. [facility]. provides no warranty or guarantee of the accuracy or completeness of information in this document.
--- NOTE | 2025-02-02 07:15 | BI_ITS ---
EXAM: SCRN MAMM (CAD)W/LICHA BILAT DATE: 02/02/2025 CLINICAL HISTORY: F, Age 39 y/o , SCREEN FOR BREAST CANCER TECHNIQUE: Procedure Code: [id number] Modality: MG Procedure: SCRN MAMM (CAD)W/LICHA BILAT COMPARISON: Prior exam(s) were compared FINDINGS: TISSUE DENSITY: There are scattered areas of fibroglandular density. Bilateral Breast Mammographic Findings: No suspicious masses, calcifications or other abnormalities are identified. BI/SCRN MAMM (CAD)W/LICHA BILAT IMPRESSION: No mammographic evidence of malignancy in either breast. OVERALL FINAL ASSESSMENT BI-RADS 1: NEGATIVE. RECOMMENDATION: Routine annual follow-up in 1 Year Additional Recommendation none A letter with findings and recommendations will be mailed to the patient. Reading Location: [id number]
== END | disposition home or self-care (01) ==
LOC: OPBI 07:05
PROVIDERS: PCP Family Medicine; Referring Provider Nurse Practitioner Family; Visit Provider Nurse Practitioner Family
DX: Z12.31 Encounter for screening mammogram for malignant neoplasm of breast (principal)
CPT/HCPCS: 77063; 77067

== ENCOUNTER → 2025-04-07 | Outpatient (CLI) | payer OTHER, SELFPAY ==
--- OUTSIDE RECORDS SUMMARY | 2025-04-07 09:09 | XMS RPT_ITS | CCD ---
Author Organization [facility] Providers Care General Ophthalmologist Name Role Phone NO REFERRING DR Unavailable [...] Vilchis Referring Provider Dane Quiñones Attending Provider Silvino JACKMAN, Dane Referring Provider Jaimie REAGAN, Alex Primary Care Provider [phone] Jaimie REAGAN, Alex Referring Provider Alex Etienne MD Attending Provider Dosgriselda BROWN, Dr. Bonner Attending Provider Jaimie REAGAN, Alex Primary Care Physician [phone] Jaimie REAGAN, Alex Referring Provider [phone] Davida [employer] SUPERVISOR-C, Kelley Attending Physician [phone] Silvino JACKMAN, Dane Attending Physician Alex Etienne MD Attending Physician Dosgriselda DC, Dr. Bonner Attending Physician Jaimie, Chalon Referring Unavailable Jaimie, Chalon Primary Care Unavailable Jessy Younger Attending Unavailable Jaimie, Chalon Primary Care Unavailable Omid Farrell Attending Unavailable Omid Farrell Referring Unavailable Jaimie, Chalon Primary Care Unavailable Jaimie, Chalon Referring Unavailable Jaimie, Chalon Attending Unavailable Silvino JACKMAN, Dane Attending Unavailable Jaimie, Chalon Primary Care Unavailable Jaimie, Chalon Referring Unavailable Jaimie, Chalon Primary Care Unavailable Jaimie, Chalon Referring Unavailable Kailey Huerta Attending Unavailable Silvino JACKMAN, Dane Attending Unavailable Jaimie, Chalon Primary Care Unavailable Jaimie, Chalon Referring Unavailable Jaimie, Chalon Primary Care Unavailable Jaimie, Chalon Referring Unavailable Jessy Younger Attending Unavailable ChanellemanKelley Referring Unavailable BarkmanKelley Attending Unavailable Jaimie, Chalon Primary Care Unavailable Barkman Kelley Referring Unavailable BarkmanKelley Attending Unavailable Jaimie, Chalon Primary Care Unavailable Jaimie, Chalon Attending Unavailable Jaimie, Chalon Primary Care Unavailable Jaimie, Chalon Referring Unavailable Jaimie, Chalon Referring Unavailable Jaimie, Chalon Attending Unavailable Jaimie, Chalon Primary Care Unavailable Silvino JACKMAN, Dane Referring Unavailable Silvino JACKMAN, Dane Attending Unavailable Jaimie, Chalon Primary Care Unavailable Omid Farrell Attending Unavailable Jaimie, Chalon Primary Care Unavailable Omid Farrell Referring Unavailable Jaimie, Chalon Referring Unavailable Jaimie, Chalon Attending Unavailable Jaimie, Chalon Primary Care Unavailable Jaimie, Chalon Referring Unavailable Omid Farrell Attending Unavailable Jaimie, Chalon Primary Care Unavailable Jaimie, Chalon Primary Care Unavailable Jaimie, Chalon Referring Unavailable Omid Farrell Attending Unavailable Jaimie, Chalon Primary Care Unavailable Jaimie, Chalon Referring Unavailable Fabiola Landry Attending Unavailable Arden Shen Attending Unavailable Jaimie, Chalon Primary Care Unavailable Jaimie, Chalon Referring Unavailable Dane Quiñones Attending Unavailable Jaimie, Chalon Primary Care Unavailable Jaimie, Chalon Referring Unavailable Kelley Higuera Attending Unavailable Jaimie, Chalon Primary Care Unavailable Jaimie, Chalon Referring Unavailable Jessy Hu Attending Physician Medications Current Medications Medication Drug Class(es) Dates Sig (Normalized) Sig (Original) acetaminophen 325 mg / oxyCODONE hydrochloride 5 mg oral tablet (1 source) Opioid Agonist Start: 02-18-2025 End: 02-21-2025 Oxycodone-Acetaminop hen (Percocet) 5-325 mg tablet Discontinued 1 {tbl} PO Q8H as needed for pain 9 3 0 February 18, 2025 February 20, 2025 12:00am February 21, 2025 12:08am Postoperative pain Other acute postprocedural pain biotin 1 mg oral capsule (15 sources) Start: 08-27-2023 take 1 capsule by mouth once daily Biotin 1 mg capsule Active 1 mg PO DAILY August 27, 2023 12:00am Complies with drug therapy BIOTIN ORAL Take by mouth. 0 Active Comment on above: Take by mouth. cholecalciferol 0.05 mg oral capsule (12 sources) Vitamin D Start: 024 take 1 capsule by mouth once daily Cholecalciferol (Vitamin D3) 50 mcg (2,000 unit) capsule Active 50 ug PO DAILY August 27, 2023 12:00am Complies with drug therapy dextromethorphan hydrobromide 15 mg / guaiFENesin 400 mg / pseudoephedrine hydrochloride 60 mg oral tablet (17 sources) alpha-Adrenergic Agonist, Uncompetitive C-ngtklu-B-aspartate Receptor Antagonist, Sigma-1 Agonist Start: 025 take 4 tablets by mouth every twenty-four hours as needed Start: 05-20-2024 End: 09-23-2024 take 4 tablets by mouth every twenty-four hours as needed Mkvqmzbclyrtazx-Lx-Fcedrxbdber (Capmist Dm) 60-15-400 mg tablet Discontinued 1 {tbl} PO EVERY 4-6 HOURS as needed for cold symptoms 20 0 May 20, 2024 1:00am September 23, 2024 2:41pm do not exceed 4 doses per 24 hrs Lactobacillus Combination No.4 (Probiotic) 3 billion cell capsule (12 sources) Start: 08-27-2023 take 3 capsules by mouth once daily Lactobacillus Combination No.4 (Probiotic) 3 billion cell capsule Active 3000 NMA PO DAILY August 27, 2023 12:00am administer with a meal Complies with drug therapy Start: 08-27-2023 take 3 capsules by m outh once daily Start: 08-27-2023 take 3 capsules by m [...] 2023 12:00am administer with a meal levonorgestrel 0.394776 mg/hr intrauterine system (20 sources) Progestin, Progestin-containing Intrauterine Device Start: 03-25-2019 End: 10-31-2024 Levonorgestrel (Mirena) 20 mcg/24 hours (5 yrs) 52 mg intrauterine device Active 1 NMA INTRA-UTER ONCE March 25, 2019 1:00am Complies with drug therapy Start: 03-25-2019 Levonorgestrel (Mirena) 20 mcg/24 hours (5 yrs) 52 mg intrauterine device Active 1 DEVICE INTRA-UTER ONCE March 25, 2019 1:00am Comment on above: 1 Each by INTRAUTERI NE route as directed. levothyroxine sodium 0.112 mg oral capsule (20 sources) l-Thyroxine Start: 09-23-2024 Levothyroxine 112 mcg capsule Active 125 ug PO DAILY September 23, 2024 2:39pm Complies with drug therapy Start: 08-27-2023 End: 09-23-2024 take 1 capsule by mouth once daily Levothyroxine 112 mcg capsule Discontinued 112 ug PO DAILY August 27, 2023 12:00am September 23, 2024 2:41pm Start: 08-24-2021 levothyroxine (SYNTHROID) 88 mcg tablet 200 mcg. 0 08/24/2021 Active Start: 08-24-2021 levothyroxine (SYNTHROID) 88 mcg tablet Comment on above: 200 mcg. lidocaine 0.05 mg/mg topical ointment (1 source) Antiarrhythmic, Amide Local Anesthetic Start: 02-19-20 Lidocaine 5 % ointment Active 1 NMA TOPICAL THREE TIMES A DAY 50 0 February 18, 2025 12:00am apply to the left foot Complies with drug therapy metFORMIN hydrochloride 500 mg oral tablet (10 sources) Biguanide Start: 09-24-19 take 1 tablet by mouth once daily Metformin 500 mg tablet Active 500 mg PO daily September 23, 2024 12:00am Complies with drug therapy phentermine hydrochloride 37.5 mg oral capsule (20 sources) Sympathomimetic Amine Anorectic Start: 09-24-19 take 1 capsule by mouth once daily Phentermine 37.5 mg capsule Active 37.5 mg PO daily September 23, 2024 12:00am Complies with drug therapy Start: 08-27-2023 End: 09-10-2023 take 1 tablet by mouth once daily 30 minutes after breakfast Phentermine (Adipex-P) 37.5 mg tablet Discontinued 37.5 mg PO DAILY August 27, 2023 12:00am September 10, 2023 3:04pm must administer 30 minutes before or 1-2 hours after breakfast psyllium 400 mg oral capsule (12 sources) Start: 08-27-2023 Psyllium Husk (Daily Fiber) 0.4 gram capsule Active 0.4 g PO DAILY August 27, 2023 12:00am Complies with drug therapy Semaglutide (10 sources) Start: 09-23-2024 Semaglutide (O zempic) 0.25 mg or 0.5 mg (2 mg/3 mL) pen injector Active mg SC September 23, 2024 12:00am Complies with drug therapy Start: 09-23-2024 Start: 09-23-2024 Semaglutide (O zempic) 0.25 mg [...] mg / clavulanate 125 mg oral tablet (6 sources) Penicillin-class Antibacterial Start: 11-25-2024 End: 12-05-2024 Amoxicillin-Pot Clavulanate 875-125 mg tablet Discontinued 1 {tbl} PO Q12H 20 10 0 November 25, 2024 12:00am December 04, 2024 12:00am December 05, 2024 12:07am Acute sinusitis, unspecified ascorbic acid 500 mg oral capsule (15 sources) Vitamin C Start: 08-27-2023 End: 09-10-2023 [...] to affected area twice daily. bifidobacterium animalis [id number] unt / bifidobacterium longum [id number] unt / lactobacillus acidophilus [id number] unt oral capsule (1 source) Start: 2018 End: 2021 take 1 capsule by mouth once daily L.acidoph-B.lactis-B.lo ngum (FLORAJEN3) 460 mg (7.5-6- 1.5 bill. cell) cap Take 1 capsule by mouth once daily. 30 capsule 1 03/28/2019 08/28/2021 Discontinued (Other) Comment on above: Take 1 capsule by mo [facility] once daily. 24 hr buPROPion hydrochloride [...] Comment on above: TAKE 1 TABLET BY [facility] DAILY FOR 1 WEEK THEN TAKE 2 [...] by mouth. methylPREDNISolone 4 mg oral tablet (6 sources) Corticosteroid Start: 2024 End: 2024 take [...] Start: 2024 End: 2024 Nystatin 100,000 unit/gram cream Active 1 NMA TOPICAL THREE TIMES A DAY as needed September 23, 2024 2:40pm Complies with drug therapy Start: 06-18-2024 End: 11-25-2024 Nystatin 100,000 unit/gram p owder Discontinued 1 NMA TOPICAL THREE TIMES A DAY as needed September 23, 2024 2:40pm November 25, 2024 10:44am Nystatin 100,000 unit/gram powder (9 sources) Start: [...] 1 NMA TOPICAL THREE TIMES A DAY June 18, 2024 1:00am psyllium seed, with dextrose, (FIBER ORAL) (3 sources) psyllium seed, w ith dextrose, (FIBER ORAL) Take by mouth. 0 Active Comment on above: Take by mouth. Vitamin B Complex tablet (11 sources) Start: 08-27-2023 End: 09-23-2024 Vitamin B Complex tablet Discontinued 1 {tbl} PO DAILY August 27, 2023 12:00am September 23, 2024 2:41pm Start: 08-27-2023 Vitamin B Comp dinora tablet Active 1 {tbl} PO DAILY August 27, 2023 12:00am Problems Active Problems Problem Classification Problem Date Documented Da te Episodic/Chronic Acute bronchitis (10 sources) Acute bronchitis; Translations: [Acute bronchitis, unspecified] 11-25-2024 Episodic Anxiety disorders (12 sources) Mixed anxiety and depressive disorder; Translations: [Other specified anxiety disorders] 08-27-2023 Chronic Cancer of cervix (20 sources) Atypical squamous cells of undetermined significance on cervical Papanicolaou smear; Translations: [Atypical squamous cells of undetermined significance on cytologic smear of cervix (ASC-US)] 08-27-2023 Episodic Comment on above: 2022, 2019, 2018 2022, 2018; HP V positive prior. Contraceptive and procreative management (13 sources) Intrauterine contraceptive device in situ; Translations: [Encounter for routine checking of intrauterine contraceptive device] 08-27-2023 Episodic Comment on above: Placed 2021 (Per Pat ient). Diabetes mellitus without complication (1 source) Type 2 diabetes mellitus without complications; Translations: [Type 2 diabetes mellitus without complications] Onset: 10-18-2024 Chronic Headache; including migraine (11 sources) Migraine; Translations: [Migraine, unspecified, not intractable, without status migrainosus] 09-08-2023 Chronic Headache; including migraine (4 sources) Cervicogenic headache; Translations: [Cervicogenic headache] 01-12-2025 Episodic Nonspecific chest pain (11 sources) Atypical chest pain; Translations: [Other chest pain] 02-24-2024 Episodic Osteoarthritis (11 sources) Osteoarthritis of right knee joint; Translations: [Unilateral primary osteoarthritis, right knee] 09-25-2023 Chronic Other bone disease and musculoskeletal deformities (11 sources) Chondromalacia; Translations: [Chondromalacia, unspecified knee] 09-25-2023 [...] region] Onset: 01-12-2025 Episodic Other circulatory disease (17 sources) Spider nevus; Translations: [Nevus, non-neoplastic] 09-23-2024 Episodic Other inflammatory condition of skin (14 sources) Intertrigo; Translations: [Erythema intertrigo] 06-18-2024 Episodic Other lower respiratory disease (11 sources) Cough; Translations: [Cough] 02-24-2024 Episodic Other nervous system disorders (2 sources) Postoperative pain ; Translations: [Other acute postprocedural pain] 02-18-2025 Episodic Other nutritional; endocrine; and metabolic disorders (4 sources) Obese class I; Translations: [Obesity, unspecified] Onset: 08-28-2021 Chronic Other screening for suspected conditions (not mental disorders or infectious disease) (4 sources) Cancer cervix screening status; Translations: [Encounter for screening for malignant neoplasm of cervix] Onset: 10-24-2022 Episodic Other upper respiratory infections (20 sources) Acute upper respiratory infection; Translations: [Acute upper respiratory infection, unspecified] Onset: 11-25-2024 05-20-2024 Episodic Spondylosis; intervertebral disc disorders; other back problems (11 sources) Neck pain; Translations: [Cervicalgia] 09-14-2023 Episodic Substance-related disorders (3 sources) Nicotine dependence, cigarettes, uncomplicated; Translations: [Nicotine dependence, unspecified, uncomplicated] Onset: 01-18-2017 Chronic Thyroid disorders (13 sources) Hypothyroidism; Translations: [Hypothyroidism, unspecified] Onset: 01-11-2025 [...] elbow] Onset: 01-18-2017 Episodic Superficial injury; contusion (17 sources) Contusion of left forearm; Translations: [Contusion of left forearm, initial encounter] Onset: 09-08-2024 09-05-2024 Episodic Results Test Name Value Interpretation Reference Range Facility Urgent Care Visit Reporton 1 Urgent Care Visit Report [facility] [address], [address] [place] [address] OFFICE VISIT Date of Service: 02/18/25 MR#: [id number] Acct: [id number] Name: ANN FLORES Rep #: [id number] : 1985 Provider: KEATON Younger Age/Sex: 39/F Location: [facility] Status: Signed Intake Vital Signs 01/12/25 12:31 02/18/25 10:53 02/18/25 11:46 Height 5 ft 7 in 5 ft 7 in 5 ft 7 in Weight: 212 lb 212 lb BMI 33.2 33.2 BP 122/86 H 134/82 H Blood Pressure Location Rt brachial Position Sitting Pulse 101 H Pulse Source Monitor Temp 98.5 F Temp Source Oral Pulse Oximetry (%) 98 Intake Visit Reasons: FOOT PAIN Chief Complaint: Foot Pain Accompanied by: Self Allergies No Known Allergies Allergy (Verified 02/18/25 12:23) Medications ???Medication ???Instructions ???Recorded ???Confirmed ???Type levonorgestrel (Mirena) 1 device intrauterine ONCE 9 02/18/25 History biotin 1 mg capsule 1 mg PO DAILY 08/27/23 02/18/25 Hi story cholecalciferol (vitamin D3) 50 50 mcg PO DAILY 08/27/23 02/18/25 History mcg (2,000 unit) capsule lactobacillus combination no.4 3 3,000 mmu cells PO DAILY 08/27/23 02/18/25 History billion cell capsule (Probiotic) psyllium husk 0.4 gram capsule 0.4 g PO DAILY 08/27/23 02/18/25 H istory (Daily Fiber) levothyroxine 112 mcg capsule 125 mcg PO DAILY 09/23/24 02/18/25 History metformin 500 mg tablet 500 mg PO QDAY 09/23/24 02/18/25 H istory nystatin 100,000 unit/gram topical 1 applic topical TID PRN 09/23/2 5 02/18/25 History cream phentermine 37.5 mg capsule 37.5 mg PO QDAY 09/23/24 02/18/25 History semaglutide 0.25 mg or 0.5 mg (2 mg subcut 09/23/24 02/18/25 Histor y mg/3 mL) subcutaneous pen injector (Ozempic) pseudoephedrine 60 mg-DM 15 1 tab PO Q4-6H PRN cold symptoms 0 11/25/24 01/12/25 Rx mg-guaifenesin 400 mg tablet #20 tabs (Capmist DM) lidocaine 5 % topical ointment 1 applic topical TID #50 grams 04/0402/18/25 Rx oxycodone-acetaminoph en 5 mg-325 1 tab PO Q8H PRN pain 3 days #9 02/18/25 Rx mg tablet (Percocet) TABLETS Nurse's Note: Went to foot doctor yesterday to have plantar warts removed. Now bottom of left foot hurts. [facility] Medical History Contusion of left forearm Atypical [...] history: - Donato HPI HPI Chief Complaint: Foot Pain Details: ANN FLORES, is a 39 F who presents to the office today for left foot pain -had several warts removed from plantar side of foot yesterday -today with pain and hurts to put any weight on her foot -no fever or chills -has been trying to keep off her feet as much as possible- tried so far ibuprofen -states the provider use a blade and cut to the wart started bleeding, used some freezing stuff and then applied a medication (I am assuming it was cantharidin- I can't see the note in the chart) ROS Const Constitutional: Positive for other (ROS negative x6 except what was placed in HPI) Exam Skin Other: -left plantar side of foot just below all the toes with mild swelling, redness, just below the toes looks like blood blisters- painful to touch- on top of the wart removal site there is a thick white powder like coverage- easily scrapes away- to the left heel also with the same white coverage- painful to touch the site -no warmth or drainge noted Coding Level of Care Code Off vis,est,level 3 Diagnoses Post-op pain G89.18 Assessment and Plan Assessment and Plan (1) Post-op pain: Status: Acute Plan: -tried surgical shoe and surgical boot- neither helped with the pain or pressure -fitted for crutches- advised to stay of her foot as much as possible- elevated- ice -continue with Tylenol or ibuprofen as needed- unable to send or call in percocet for short course- lidocaine ointment sent -if sx change or worsen to ED for further evaluaiton- advised should follow up with provider who did the procedure on Thursday Medicati (more content not included)... Normal [facility] Breast imaging reportOrdered By: Melva Flores on 02-02-2025 Study report [facility] Imaging Services [address] [place] [address] SCRN MAMM (CAD)W/LICHA BILAT MR#: [id number] Acct: [id number] Name: ANN FLORES Rep #: [id number] : 1985 F 39 From: Jean Carlos Dave MD PCP: Dr. Alex Etienne MD Status: REG CL I Study:SCRN MAMM (CAD)W/LICHA BILAT Date of Exa m: 02/02/25 Exam# [id number] Ordering Dr: Kelley Higuera [employer] SUPERVISOR-C EXAM: SCRN MAMM (CAD)W/LICHA BILAT DATE: 02/02/2025 CLINICAL HISTORY: F, Age 39 y/o , SCREEN FOR BREAST CANCER TECHNIQUE: Procedure Code: BISMWCADBTOM Modality: MG Procedure: SCRN MAMM (CAD)W/LICHA BILAT COMPARISON: Prior exam(s) were compared FINDINGS: TISSUE DENSITY: There are scattered areas of fibroglandular density. Bilateral Breast Mammographic Findings: No suspicious masses, calcifications or other abnormalities are identified. BI/SCRN MAMM (CAD)W/LICHA BILAT IMPRESSION: No mammographic evidence of malignancy in either breast. OVERALL FINAL ASSESSMENT BI-RADS 1: NEGATIVE. RECOMMENDATION: Routine annual follow-up in 1 Year Additional Recommendation none A letter with findings and recommendations will be mailed to the patient. Reading Location: [id number] CC: SADIE-Megha Higuera; Dr. lAex Etienne MD ~ Learning Disabilities Specialist: Signed [facility] SCRN MAMM (CAD)W/LICHA BILATo n 02-02-2025 SCRN MAMM (CAD)W/LICHA BILAT [facility] Imaging Services [address] [place] [id number] SCRN MAMM (CAD)W/LICHA BILAT MR#: [id number] Acct: [id number] Name: ANN FLORES Rep #: [id number] : 1985 F 39 From: Melva Betts i, MD PCP: Dr. Alex Etienne MD Status: REG CLI Study: SCRN MAMM (CAD)W/LICHA BILAT Date of Exam: 01/10 10/02 Exam# [id number] Ordering Dr: Kelley Higuera [employer] SUPERVISOR-C EXAM: SCRN MAMM (CAD)W/LICHA BILAT DATE: 02/02/2025 CLINICAL HISTORY: F, Age 39 y/o , SCREEN FOR BREAST CANCER TECHNIQUE: Procedure Code: BISMWCADBTOM Modality: MG Procedure: SCRN MAMM (CAD)W/LICHA BILAT COMPARISON: Prior exam(s) were compared FINDINGS: TISSUE DENSITY: There are scattered areas of fibroglandular density. Bilateral Breast Mammographic Findings: No suspicious masses, calcifications or other abnormalities are identified. BI/SCRN MAMM (CAD)W/LICHA BILAT IMPRESSION: No mammographic evidence of malignancy in either breast. OVERALL FINAL ASSESSMENT BI-RADS 1: NEGATIVE. RECOMMENDATION: Routine annual follow-up in 1 Year Additional Recommendation none A letter with findings and recommendations will be mailed to the patient. Reading Location: [facility] CC: KEATON Higuera; Dr. Alex Etienne MD Learning Disabilities Specialist: Signed Normal [facility] Chiropractic Reporton 2024 Chiropractic Report [facility] Chiropractic [address] [place] [address] OFFICE VISIT Date of Service: 01/12/25 MR#: [id number] Acct: [id number] Name: ANN FLORES Rep #: [id number] : 1985 Provider: STEPHANIE Simpson Age/Sex: 39/F Location: [facility] Status: Signed Intake Vital Signs 11/17/24 08:17 [...] home: Yes additional social history: - Donato [employer] [facility] Chief Complaint: neck discomfort Visit Number: 1 Details: Ann Flores a 39 year old female is here today for a re-evaluation of neck pain. Pt. advises she has been experiencing more frequent neck tension. She states the tension often causes TAPIA's. When she has a headache she gets a heavy sensation in her neck. She states her [...] Negative Shou (more content not included)... Normal [facility] Hemoglobin A1con 01-05-2025 HbA1c (Bld) [Mass fraction] 6.5 % High <=5.6 [facility] Comment on above: Order Comment: Order Date: 12/15/24Order Info: [id number] - A1C Result Comment: Norm al < 5.7 % Prediabetic 5.7 - 6.4 % Diabetic >or= 6.5 % Please note range changes. Performed By: #### L 501.9985, L501.9520 ####[facility] [address] [place], [address] Hemoglobin A1c percentageOrd ered By: Alex Etienne on 01-05-2025 HbA1c (Bld) [Mass fraction] 6.5 % High <5.7 [facility] Comment on above: Normal < 5.7 % Predi abetic 5.7 - 6.4 % Diabetic >or= 6.5 % Please note range changes. TSH DL <= 0.005 mIU/L QnOrde red By: Alex Etienne on 01-05-2025 TSH Qn 0.325 uIU/mL 0.300-4.200 [facility] Thyroid Stim Hormone (TSH)on 01-05-2025 TSH 0.325 uIU/mL Normal 0.300-4.200 [facility] Comment on above: Order Comment: Order Date: 12/15/24Order Info: [id number] - TSH Performed By: #### L 501.9985, L501.9520 ####[facility] [address] [place], [place], [address] Chest PA and Lateralon 11-25 Chest PA and Lateral [facility] Imaging Services [address] [place], [place] [address] Chest PA and Lateral MR#: [id number] Acct: [id number] Name: ANN FLORES Rep #: [id number] : 1985 F 39 From: Nery Hickey PCP: Dr. Alex Etienne MD Status: REG CLI Study: Chest PA and Lateral Date of Exam: 11/25/24 Exam# [id number] Ordering Dr: Dane Dubois PA PA PROCEDURE: CHEST PA AND LATERAL 11/25/2024 [...] cardiopulmonary process is identified radiographically. Reading Location: [facility] CC: GASPER Orellana; Dr. Alex Etienne MD Learning Disabilities Specialist: Signed Normal [facility] Urgent Care Visit Reporton 0 11-25-2024 Urgent Care Visit Report [facility] [address] , [address] [place] [address] OFFICE VISIT Date of Service: 11/25/24 MR#: [id number] Acct: [id number] Name: ANN FLORES Rep #: [id number] : 1985 Provider: GASPER Orellana Age/Sex: 39/F Location: [facility] Status: Signed Intake Vital Signs 11/17/24 08:17 [...] Chief Complaint: TAPIA, congestion, cough, chest tightness Maintenance Mechanic Technician Required: No Is patient in pain?: No [...] unit/gram topical 1 applic topical TID PRN 09/23/2 5 11/17/24 History cream phentermine 37.5 mg [...] Cough, unspecified (more content not included)... Normal [facility] PAP IG HPV APTIMA 16/18,45on 11-21-2024 ADEQ Comment Normal . [facility] Comment on above: Order Comment: Alexandra nelson Comment: [id number] Comment: No. of containers..01 ThinPrep Vial Result Comment: Sati sfactory for evaluation. No endocervical component is identified. Performed By: #### L 7400.0280 ####[facility] [address] [place], [place], [id number] COMM . Normal . [facility] Comment on above: Order Comment: Alexandra nelson Comment: [id number] Comment: No. of containers..01 ThinPrep Vial Performed By: #### L 7400.0280 ####[facility] [address] [place], [address] COMMENT Comment Normal . [facility] Comment on above: Order Comment: Speci men Comment: [id number] Comment: No. of containers..01 ThinPrep Vial Result Comment: This liquid based ThinPrep(R) pap test was screened with the use of an image guided system. Performed By: #### L 7400.0280 ####[facility] [address] [place], [place], [id number] DIAG Comment Normal . [facility] Comment on above: Order Comment: Speci men Comment: [id number] Comment: No. of containers..01 ThinPrep Vial Result Comment: NEGA TIVE FOR INTRAEPITHELIAL LESION OR MALIGNANCY. Performed By: #### L 7400.0280 ####[facility] [address] [place], [address] HPV APTIMA, HR Negative Normal Negative [facility] Comment on above: Order Comment: Speci men Comment: [id number] Comment: No. of containers..01 ThinPrep Vial Result Comment: This nucleic acid amplification test detects fourteen high- risk HPV types (16,18,31,33,35,39,45,51,52,56,58,59,66,68) without differentiation. Performed By: #### L 7400.0280 ####[facility] [address] [place], [place], [id number] HPV Lizabeth Rfx Comment Normal . [facility] Comment on above: Order Comment: Speci men Comment: [id number] Comment: No. of containers..01 ThinPrep Vial Result Comment: Crit eria not met, HPV Genotype not performed. Performed at: - [address] [id number] Forensic Psychiatrist: Aruna Meehan MD, Phone: [phone] Performed at: =[address] [id number] Forensic Psychiatrist: Aruna Meehan MD, Phone: [phone] Performed By: #### L 7400.0280 ####[facility] [address] [place], [place], [id number] PAPSMR Comment Normal . [facility] Comment on above: Order Comment: Speci men Comment: [id number] Comment: No. of containers..01 ThinPrep Vial Result Comment: The Pap smear is a screening test designed to aid in the detection of premalignant and malignant conditions of the uterine cervix. It is not a diagnostic procedure and should not be used as the sole means of detecting cervical cancer. Both false-positive and false-negative reports do occur. Performed By: #### L 7400.0280 ####[facility] [address] [place], [place], [id number] PERFORM Comment Normal . [facility] Comment on above: Order Comment: Speci men Comment: [id number] Comment: No. of containers..01 ThinPrep Vial Result Comment: Roma Kwan, Geotechnical Engineer (ASCP) Performed By: #### L 7400.0280 ####[facility] [address] [place], [place], [id number] Cervical or vaginal specimen microscopic examination by liquid based cytology (reportOrdered By: Kelley Higuera on 11-17-2024 Cytology report Cyto stain.thin prep Doc (Cvx/Vag) Comment . [facility] Comment on above: Criteria not met, HP V Genotype not performed.Performed at: - [address] [id number] Director: Aruna Meehan MD, Phone: [phone] at: =[facility] [id number] Director: Aruna Meehan MD, Phone: [phone] Cervical or vagninal specime n microscopic examination by cytology stain (reported asOrdered By: Kelley Higuera on 11-17-2024 Cytology report Cyto stain Doc (Cvx/Vag) Comment . [facility] Comment on above: The Pap smear [...] DNA Probe+sig amp Ql (Cvx) Negative Negative [facility] Comment on above: This nucleic acid am plification test detects fourteen high-risk HPV types (16,18,31,33,35,39,45,51,52,56,58,59,66,68)without differentiation. Laboratory - CytologyOrdered By: Kelley Higuera on 11-17-2024 Geotechnical Engineer Cyto stain Nom (Cvx/Vag) [ID] Comment . [facility] Comment on above: Megha Rivera ytologist (ASCP) Laboratory - Miscellaneous t estsOrdered By: Kelley Higuera on 11-17-2024 Service comment (Unsp spec) [Interp] . . [facility] No Panel InformationOrdered By: Kelley Higuera on 11-17-2024 Pap Smear Specimen Adequacy Comment . [facility] Comment on above: Satisfactory for elina luation. No endocervical component is identified. [facility] Office Visit Reporton 11-17-2024 [facility] Office Visit Report 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 Normal [facility] Absolute lymphocyte countOrd ered By: Alxe Etienne on 10-05-2024 Lymphocytes Auto (Unsp spec) [#/Vol] 2.79 10*3/uL 0.83-4.51 [facility] Absolute neutrophil countOrd ered By: [facility] 10-05-2024 Neutrophils (Bld) [#/Vol] 5.7 10*3/uL 2.0-7.7 [facility] Anion gap in Serum or Plasma Ordered By: Alex Etienne on 10-05-2024 Anion gap [Moles/Vol] 12 mmol/L 5- [facility] Automated lymphocyte count a s percentage of total leukocytesOrdered By: Alex Etienne on 10-05-2024 Lymphocytes/100 WBC Auto (Unsp spec) 30.4 % 19- [facility] BUN/creatinine ratioOrdered By: [facility] on 10-05-2024 Urea nitrogen/Creatinine [Mass ratio] 14.4 mg/mg 10-20 [facility] Basophil percentageOrdered B y: Alex Etienne on 10-05-2024 Basophils/100 WBC (Bld) 0.5 % 0-1 [facility] Bilirubin, totalOrdered By: Alex Etienne on 10-05-2024 Bilirubin [Mass/Vol] 0.40 mg/dL 0.00-1.30 [facility] CBC W/Diff, Automatedon 09-09 Absolute Lymph 2.79 X10 3/uL Normal 0.83-4.51 [facility] Comment on above: Order Comment: Order Date: 09/02/24Order Info: [id number] - CBCD Performed By: #### L 501.9569, L501.9914, L500.4050, L500.4100, L100.0100 ####[facility] [address] [place], [address] Absolute Neut 5.7 X10 3/uL Normal 2.0-7.7 [facility] Comment on above: Order Comment: Order Date: 09/02/24Order Info: [id number] - CBCD Performed By: #### L 501.9520, L501.9985, L500.4050, L500.4100, L100.0100 ####[facility] [address] [place], [address] Basophils/100 WBC (Bld) 0.5 % Normal 0-1 [facility] Comment on above: Order Comment: Order Date: 09/02/24Order Info: [id number] - CBCD Performed By: #### L 501.9520, L501.9985, L500.4050, L500.4100, L100.0100 ####[facility] [address] [place], [address] Eosinophils/100 WBC (Bld) 1.0 % Normal 0-5 [facility] Comment on above: Order Comment: Order Date: 09/02/24Order Info: [id number] - CBCD Performed By: #### L 501.9520, L501.9985, L500.4050, L500.4100, L100.0100 ####[facility] [address] [place], [address] Erythrocyte distribution width (RBC) [Ratio] 13.2 % Normal 11.6-14.6 [facility] Comment on above: Order Comment: Order Date: 09/02/24Order Info: [id number] - CBCD Performed By: #### L 501.9520, L501.9985, L500.4050, L500.4100, L100.0100 ####[facility] [address] [place], [address] Hematocrit (Bld) [Volume fraction] 40.9 % Normal 37-47 [facility] Comment on above: Order Comment: Order Date: 09/02/24Order Info: [id number] - CBCD Performed By: #### L 501.9520, L501.9985, L500.4050, L500.4100, L100.0100 ####[facility] [address] [place], [address] Hemoglobin (Bld) [Mass/Vol] 13.5 g/dL Normal 12.0-15.0 [facility] Comment on above: Order Comment: Order Date: 09/02/24Order Info: [id number] - CBCD Performed By: #### L 501.9520, L501.9985, L500.4050, L500.4100, L100.0100 ####[facility] [address] [place], [address] IG% 0.200 Normal 0.0-0.9 [facility] Comment on above: Order Comment: Order Date: 09/02/24Order Info: 018- - CBCD Result Comment: IG% - Immature Granulocytes (promyelocytes, myelocytes and metamyelocytes) > 1% indicates that a LEFT SHIFT is Present. Performed By: #### L 501.9520, L501.9985, L500.4050, L500.4100, L100.0100 ####[facility] [address] [place], [address] Lymphocytes/100 WBC (Bld) 30.4 % Normal 19-41 [facility] Comment on above: Order Comment: Order Date: 09/02/24Order Info: [id number] - CBCD Performed By: #### L 501.9520, L501.9985, L500.4050, L500.4100, L100.0100 ####[facility] [address] [place], [address] MCH (RBC) [Entitic mass] 29.0 pg Normal 27.0-32.0 [facility] Comment on above: Order Comment: Order Date: 09/02/24Order Info: 018- - CBCD Performed By: #### L 501.9520, L501.9985, L500.4050, L500.4100, L100.0100 ####[facility] [address] [place], [address] MCHC (RBC) [Mass/Vol] 33.0 g/dL Normal 32-36 [facility] Comment on above: Order Comment: Order Date: 09/02/24Order Info: [id number] - CBCD Performed By: #### L 501.9520, L501.9985, L500.4050, L500.4100, L100.0100 ####[facility] [address] [place], [address] MCV (RBC) [Entitic vol] 88.0 fL Normal 81-99 [facility] Comment on above: Order Comment: Order Date: 09/02/24Order Info: [id number] - CBCD Performed By: #### L 501.9520, L501.9985, L500.4050, L500.4100, L100.0100 ####[facility] [address] [place], [address] Monocytes/100 WBC (Bld) 6.0 % Normal 0-10 [facility] Comment on above: Order Comment: Order Date: 09/02/24Order Info: [id number] - CBCD Performed By: #### L 501.9520, L501.9985, L500.4050, L500.4100, L100.0100 ####[facility] [address] [place], [address] Neutrophils/100 WBC (Bld) 61.9 % Normal 47-70 [facility] Comment on above: Order Comment: Order Date: 09/02/24Order Info: [id number] - CBCD Performed By: #### L 501.9520, L501.9985, L500.4050, L500.4100, L100.0100 ####[facility] [address] [place], [address] Nucleated RBC (Bld) [#/Vol] 0 10*3/uL Normal 0-5 [facility] Comment on above: Order Comment: Order Date: 09/02/24Order Info: [id number] - CBCD Performed By: #### L 501.9520, L501.9985, L500.4050, L500.4100, L100.0100 ####[facility] [address] [place], [address] Platelet mean volume (Bld) [Entitic vol] 11.8 fL Normal 6.2-12.0 [facility] Comment on above: Order Comment: Order Date: 09/02/24Order Info: [id number] - CBCD Performed By: #### L 501.9520, L501.9985, L500.4050, L500.4100, L100.0100 ####[facility] [address] [place], [address] Platelets (Bld) [#/Vol] 280 10*3/uL Normal 150-450 [facility] Comment on above: Order Comment: Order Date: 09/02/24Order Info: [id number]- - CBCD Performed By: #### L 501.9520, L501.9985, L500.4050, L500.4100, L100.0100 ####[facility] [address] [place], [address] RBC (Bld) [#/Vol] 4.65 10*6/uL Normal 4.2-5.4 [facility] Comment on above: Order Comment: Order Date: 09/02/24Order Info: [id number] - CBCD Performed By: #### L 501.9520, L501.9985, L500.4050, L500.4100, L100.0100 ####[facility] [address] [place], [address] RDW SD 42.1 fl Normal 35.1-43.9 [facility] Comment on above: Order Comment: Order Date: 09/02/24Order Info: [id number] - CBCD Performed By: #### L 501.9520, L501.9985, L500.4050, L500.4100, L100.0100 ####[facility] [address] [place], [address] WBC (Bld) [#/Vol] 9.2 10*3/uL Normal 4.4-11.0 [facility] Comment on above: Order Comment: Order Date: 09/02/24Order Info: [id number] - CBCD Performed By: #### L 501.9520, L501.9985, L500.4050, L500.4100, L100.0100 ####[facility] [address] [place], [address] Calculated very low density lipoprotein (VLDL) cholesterol measurementOrdered By: Alex Etienne on 10-05-2024 Calculated very low density lipoprotein (VLDL) cholesterol measurement 28 mg/dL 5-40 [facility] Carbon dioxide, total [Moles /volume] in Central venous bloodOrdered By: Alex Etienne on 10-05-2024 CO2 [Moles/Vol] 22.4 mmol/L 21.0-32.0 [facility] Chloride assayOrdered By: Jillian Etienne on 10-05-2024 Chloride [Moles/Vol] 105 mmol/L 98-108 [facility] Comprehensive Metabolic Prof ilon 10-05-2024 Albumin [Mass/Vol] 4.0 g/dL Normal 3.5-5.0 [facility] Comment on above: Order Comment: Order Date: 09/02/24Order Info: [id number] - CMPOrder Info: [id number] - LIPIDOrder Info: [id number] - TSH Performed By: #### L 501.9520, L501.9985, L500.4050, L500.4100, L100.0100 ####[facility] [address] [place], [address] Albumin/Globulin [Mass ratio] 1.2 {ratio} Normal 0.9-2.4 [facility] Comment on above: Order Comment: Order Date: 09/02/24Order Info: [id number] - CMPOrder Info: [id number] - LIPIDOrder Info: [id number] - TSH Performed By: #### L 501.9520, L501.9985, L500.4050, L500.4100, L100.0100 ####[facility] [address] [place], [address] ALK PHOS 95 U/L Normal 35-104 [facility] Comment on above: Order Comment: Order Date: 09/02/24Order Info: [id number] - CMPOrder Info: [id number] - LIPIDOrder Info: [id number] - TSH Performed By: #### L 501.9520, L501.9985, L500.4050, L500.4100, L100.0100 ####[facility] [address] [place], [address] ALT [Catalytic activity/Vol] 45 U/L High <=34 [facility] Comment on above: Order Comment: Order Date: 09/02/24Order Info: [id number] - CMPOrder Info: [id number] - LIPIDOrder Info: [id number] - TSH Performed By: #### L 501.9520, L501.9985, L500.4050, L500.4100, L100.0100 ####[facility] [address] [place], [address] AST [Catalytic activity/Vol] 32 U/L Normal <=31 [facility] Comment on above: Order Comment: Order Date: 09/02/24Order Info: [id number] - CMPOrder Info: [id number] - LIPIDOrder Info: [id number] - TSH Performed By: #### L 501.9520, L501.9985, L500.4050, L500.4100, L100.0100 ####[facility] [address] [place], [address] Bilirubin [Mass/Vol] 0.40 mg/dL Normal 0.00-1.30 [facility] Comment on above: Order Comment: Order Date: 09/02/24Order Info: [id number] - CMPOrder Info: [id number] - LIPIDOrder Info: [id number] - TSH Performed By: #### L 501.9520, L501.9985, L500.4050, L500.4100, L100.0100 ####[facility] [address] [place], [address] BUN/CRE 14.4 RATIO Normal 10-20 [facility] Comment on above: Order Comment: Order Date: 09/02/24Order Info: 86-1 - CMPOrder Info: [id number] - LIPIDOrder Info: [id number] - TSH Performed By: #### L 501.9520, L501.9985, L500.4050, L500.4100, L100.0100 ####[facility] [address] [place], [address] Calcium [Mass/Vol] 9.5 mg/dL Normal 7.6-11.0 [facility] Comment on above: Order Comment: Order Date: 09/02/24Order Info: [id number] - CMPOrder Info: [id number] - LIPIDOrder Info: [id number] - TSH Performed By: #### L 501.9520, L501.9985, L500.4050, L500.4100, L100.0100 ####[facility] [address] [place], [address] Chloride [Moles/Vol] 105 mmol/L Normal 98-108 [facility] Comment on above: Order Comment: Order Date: 09/02/24Order Info: [id number] - CMPOrder Info: [id number] - LIPIDOrder Info: [id number] - TSH Performed By: #### L 501.9520, L501.9985, L500.4050, L500.4100, L100.0100 ####[facility] [address] [place], [address] CO2 [Moles/Vol] 22.4 mmol/L Normal 21.0-32.0 [facility] Comment on above: Order Comment: Order Date: 09/02/24Order Info: [id number] - CMPOrder Info: [id number] - LIPIDOrder Info: 3 - TSH Performed By: #### L 501.9520, L501.9985, L500.4050, L500.4100, L100.0100 ####[facility] [address] [place], [address] Creatinine [Mass/Vol] 0.66 mg/dL Low 0.70-1.20 [facility] Comment on above: Order Comment: Order Date: 09/02/24Order Info: 07- - CMPOrder Info: [id number] - LIPIDOrder Info: [id number] - TSH Performed By: #### L 501.9520, L501.9985, L500.4050, L500.4100, L100.0100 ####[facility] [address] [place], [place], [address] GAP 12 Normal 5-15 [facility] Comment on above: Order Comment: Order Date: 09/02/24Order Info: [id number]- - CMPOrder Info: [id number] - LIPIDOrder Info: 3 - TSH Performed By: #### L 501.9520, L501.9985, L500.4050, L500.4100, L100.0100 ####[facility] [address] [facility] [place], [place], [address] GFR/1.73 sq M.predicted among non-blacks MDRD (S/P/Bld) [Vol rate/Area] 114 mL/min/{1.73_m2} Normal >60 [facility] Comment on above: Order Comment: Order Date: 09/02/24Order Info: [id number] - CMPOrder Info: [id number] - LIPIDOrder Info: 3 - TSH Result Comment: mL/m in/1.73m2 CKD-EPI Creatinine Equation (2020) Performed By: #### L 501.9520, L501.9985, L500.4050, L500.4100, L100.0100 ####[facility] [address] [place], [address] Globulin (S) [Mass/Vol] 3.4 g/dL Normal 2.2-4.2 [facility] Comment on above: Order Comment: Order Date: 09/02/24Order Info: [id number] - CMPOrder Info: [id number] - LIPIDOrder Info: [id number] - TSH Performed By: #### L 501.9520, L501.9985, L500.4050, L500.4100, L100.0100 ####[facility] [address] [place], [address] Glucose [Mass/Vol] 129 mg/dL High 70-99 [facility] Comment on above: Order Comment: Order Date: 09/02/24Order Info: [id number] - CMPOrder Info: [id number] - LIPIDOrder Info: [id number] - TSH Performed By: #### L 501.9520, L501.9985, L500.4050, L500.4100, L100.0100 ####[facility] [address] [place], [address] Potassium [Moles/Vol] 3.7 mmol/L Normal 3.3-5.1 [facility] Comment on above: Order Comment: Order Date: 09/02/24Order Info: [id number] - CMPOrder Info: [id number] - LIPIDOrder Info: [id number] - TSH Performed By: #### L 501.9520, L501.9985, L500.4050, L500.4100, L100.0100 ####[facility] [address] [place], [address] Sodium [Moles/Vol] 139 mmol/L Normal 133-145 [facility] Comment on above: Order Comment: Order Date: 09/02/24Order Info: [id number] - CMPOrder Info: [id number] - LIPIDOrder Info: 3 - TSH Performed By: #### L 501.9520, L501.9985, L500.4050, L500.4100, L100.0100 ####[facility] [address] [place], [address] T PROT 7.4 g/dL Normal 5.9-8.4 [facility] Comment on above: Order Comment: Order Date: 09/02/24Order Info: [id number]- - CMPOrder Info: [id number] - LIPIDOrder Info: [id number] - TSH Performed By: #### L 501.9520, L501.9985, L500.4050, L500.4100, L100.0100 ####[facility] [address] [place], [address] Urea nitrogen [Mass/Vol] 9 mg/dL Normal 4-19 [facility] Comment on above: Order Comment: Order Date: 09/02/24Order Info: [id number] - CMPOrder Info: [id number] - LIPIDOrder Info: [id number] - TSH Performed By: #### L 501.9520, L501.9985, L500.4050, L500.4100, L100.0100 ####[facility] [address] [place], [address] Eosinophil percentageOrdered By: Alex Etienne on 10-05-2024 Eosinophils/100 WBC (Bld) 1.0 % 0-5 [facility] Erythrocyte distribution wid th ratioOrdered By: Alex Etienne on 10-05-2024 Erythrocyte distribution width (RBC) [Ratio] 13.2 % 11.6-14.6 [facility] Erythrocyte distribution wid th standard deviationOrdered By: Alex Etienne on 10-05-2024 Erythrocyte distribution width (RBC) [Ratio] 42.1 fl 35.1-43.9 [facility] Glomerular filtration rate ( GFR) estimation/1.73 sq m using serum, plasma, or whole bOrdered By: Alex Etienne on 10-05-2024 GFR/1.73 sq M.predicted among non-blacks MDRD (S/P/Bld) [Vol rate/Area] 114 mL/min/{1.73_m2} >60 [facility] Comment on above: mL/min/1.73m2 CKD-EP I Creatinine Equation (2020) Hematocrit Auto (Bld) [Volum e fraction]Ordered By: Alex Etienne on 10-05-2024 Hematocrit (Bld) [Volume fraction] 40.9 % 37-47 [facility] Hemoglobin A1con 10-05-2024 HbA1c (Bld) [Mass fraction] 7.0 % High <=5.6 [facility] Comment on above: Order Comment: Order Date: 09/02/24Order Info: [id number] - A1C Result Comment: Norm al < 5.7 % Prediabetic 5.7 - 6.4 % Diabetic >or= 6.5 % Please note range changes. Performed By: #### L 501.9520, L501.9985, L500.4050, L500.4100, L100.0100 ####[facility] [address] [place], [address] Hemoglobin A1c percentageOrd ered By: Alex Etienne on 10-05-2024 HbA1c (Bld) [Mass fraction] 7.0 % High <5.7 [facility] Comment on above: Normal < 5.7 % Predi abetic 5.7 - 6.4 % Diabetic >or= 6.5 % Please note range changes. Hemoglobin measurementOrdere d By: Alex Etienne on 10-05-2024 Hemoglobin (Bld) [Mass/Vol] 13.5 g/dL 12.0-15.0 [facility] Immature granulocytes/100 WB C Auto (Bld)Ordered By: Alex Etienne on 10-05-2024 Immature granulocytes/100 WBC (Bld) 0.200 % 0.0-0.9 [facility] Comment on above: IG% - Immature Granu locytes (promyelocytes, myelocytes and metamyelocytes) > 1% indicates that a LEFT SHIFT is Present. LDL calc ser/plasOrdered By: Alex Etienne on 10-05-2024 Cholesterol in LDL [Mass/Vol] 79 mg/dL [facility] Comment on above: Nneoelupgp=163-632 m g/dL & Higher Sowl=164 mg/dL or greater Laboratory - Chemistry and C hemistry - challengeOrdered By: Alex Etienne on 10-05-2024 AST [Catalytic activity/Vol] 32 U/L <32 [facility] Lipid Profileon 10-05-2024 CHOL:HDL 4.40 Normal [facility] Comment on above: Order Comment: Order Date: 09/02/24Order Info: [id number] - CMPOrder Info: [id number] - LIPIDOrder Info: [id number] - TSH Performed By: #### L 501.9520, L501.9985, L500.4050, L500.4100, L100.0100 ####[facility] [address] [place], [address] Cholesterol [Mass/Vol] 139 mg/dL Normal <=200 [facility] Comment on above: Order Comment: Order Date: 09/02/24Order Info: [id number]- - CMPOrder Info: [id number] - LIPIDOrder Info: [id number] - TSH Result Comment: Chol esterol level, Desirable <200 mg/dL Borderline high cholesterol 200-239 mg/dL High cholesterol >=240 mg/dL Recommendations of the NCEP Adult Treatment Panel for the following risk-cutoff thresholds for the [place] population. Performed By: #### L 501.9520, L501.9985, L500.4050, L500.4100, L100.0100 ####[facility] [address] [place], [place], [address] Cholesterol in HDL [Mass/Vol] 32 mg/dL Low [facility] Comment on above: Order Comment: Order Date: 09/02/24Order Info: [id number] - CMPOrder Info: [id number] - LIPIDOrder Info: [id number] - TSH Result Comment: Missy onal Cholesterol Education Program (NCEP) guidelines: <40 mg/dL: Low HDL-cholesterol (major risk factor for CHD) >= 60 mg/dL: High HDL-cholesterol (negative risk factor for CHD) HDL-cholesterol is affected by a number of factors, e.g. smoking, exercise, hormones, sex and age. Performed By: #### L 501.9520, L501.9985, L500.4050, L500.4100, L100.0100 ####[facility] [address] [place], [address] Cholesterol in LDL [Mass/Vol] 79 mg/dL Normal [facility] Comment on above: Order Comment: Order Date: 09/02/24Order Info: [id number] - CMPOrder Info: [id number] - LIPIDOrder Info: [id number] - TSH Result Comment: Bord bdwgbi=522-029 mg/dL Higher Gbnm=081 mg/dL or greater Performed By: #### L 501.9520, L501.9985, L500.4050, L500.4100, L100.0100 ####[facility] [address] [place], [address] Cholesterol in VLDL [Mass/Vol] 28 mg/dL Normal 5-40 [facility] Comment on above: Order Comment: Order Date: 09/02/24Order Info: [id number] - CMPOrder Info: [id number] - LIPIDOrder Info: [id number] - TSH Performed By: #### L 501.9520, L501.9985, L500.4050, L500.4100, L100.0100 ####[facility] [address] [place], [address] Triglyceride [Mass/Vol] 142 mg/dL Normal [facility] Comment on above: Order Comment: Order Date: 09/02/24Order Info: [id number] - CMPOrder Info: [id number] - LIPIDOrder Info: [id number] - TSH Result Comment: The drugs N-Acetylcysteine and Metamizole may falsely depress this assay. Normal range: <150 mg/dL Borderline High: 150-199 mg/dL High: 200-499 mg/dL Very High: >500 mg/dL Performed By: #### L 501.9520, L501.9985, L500.4050, L500.4100, L100.0100 ####[facility] [address] [place], [address] MCV (mean corpuscular volume ) determinationOrdered By: Alex Etienne on 10-05-2024 MCV (RBC) [Entitic vol] 88.0 fL 81-99 [facility] Mean corpuscular hemoglobin (MCH) determinationOrdered By: Alex Etienne on 10-05-2024 MCH (RBC) [Entitic mass] 29.0 pg 27.0-32.0 [facility] Mean corpuscular hemoglobin concentration (MCHC) determinationOrdered By: Alex Etienne on 10-05-2024 MCHC (RBC) [Mass/Vol] 33.0 g/dL 32-36 [facility] Mean platelet volume determi nationOrdered By: Alex Etienne on 10-05-2024 Platelet mean volume (Bld) [Entitic vol] 11.8 fL 6.2-12.0 [facility] Monocyte percentageOrdered B y: Alex Etienne on 10-05-2024 Monocytes/100 WBC (Bld) 6.0 % 0-10 [facility] Neutrophil percentageOrdered By: Alex Etienne on 10-05-2024 Neutrophils/100 WBC (Bld) 61.9 % 47-70 [facility] Nucleated red blood cell per centageOrdered By: Alex Etienne on 10-05-2024 Nucleated RBC/100 WBC (Bld) [Ratio] 0 % 0-5 [facility] Platelet countOrdered By: Jillian Etienne on 10-05-2024 Platelets (Bld) [#/Vol] 280 10*3/uL 150-450 [facility] Potassium measurement (mass/ volume)Ordered By: Alex Etienne on 10-05-2024 Potassium (Unsp spec) [Mass/Vol] 3.7 mmol/L 3.3-5.1 [facility] RBC Auto (Bld) [#/Vol]Ordere d By: Alex Etienne on 10-05-2024 RBC (Bld) [#/Vol] 4.65 10*6/uL 4.2-5.4 [facility] Screening total cholesterol/ high density lipoprotein (HDL) cholesterol ratioOrdered By: Alex Etienne on 10-05-2024 Cholesterol.total/Choles terol in HDL [Mass ratio] 4.40 {ratio} [facility] Serum creatinine measurement (mass/volume)Ordered By: Alex Etienne on 10-05-2024 Creatinine [Mass/Vol] 0.66 mg/dL Low 0.70-1.20 [facility] Serum globulin measurementOr dered By: Alex Etienne on 10-05-2024 Globulin (S) [Mass/Vol] 3.4 g/dL 2.2-4.2 [facility] Serum glucose measurement (m ass/volume)Ordered By: Alex Etienne on 10-05-2024 Glucose [Mass/Vol] 129 mg/dL High 70-99 [facility] Serum or plasma alanine delaney otransferase (ALT) measurementOrdered By: Alex Etienne on 10-05-2024 ALT [Catalytic activity/Vol] 45 U/L High <35 [facility] Serum or plasma albumin kate urement (mass/volume)Ordered By: Alex Etienne on 10-05-2024 Albumin [Mass/Vol] 4.0 g/dL 3.5-5.0 [facility] Serum or plasma albumin/glob ulin mass ratioOrdered By: Alex Etienne on 10-05-2024 Albumin/Globulin [Mass ratio] 1.2 {ratio} 0.9-2.4 [facility] Serum or plasma alkaline brian sphatase measurementOrdered By: Alex Etienne on 10-05-2024 ALP [Catalytic activity/Vol] 95 U/L 35-104 [facility] Serum or plasma calcium kate urement (mass/volume)Ordered By: Alex Etienne on 10-05-2024 Calcium [Mass/Vol] 9.5 mg/dL 7.6-11.0 [facility] Serum or plasma cholesterol in HDL measurement (mass/volume)Ordered By: Alex Etienne on 10-05-2024 Cholesterol in HDL [Mass/Vol] 32 mg/dL Low >40 [facility] Comment on above: National Cholesterol Education Program (NCEP) guidelines:<40 mg/dL: Low HDL-cholesterol (major risk factor for CHD)>= 60 mg/dL: High HDL-cholesterol (negative risk factor for CHD)HDL-cholesterol is affected by a number of factors, e.g. smoking, exercise, hormones, sex and age. Serum or plasma cholesterol measurement (mass/volume)Ordered By: Alex Etienne on 10-05-2024 Cholesterol [Mass/Vol] 139 mg/dL <201 [facility] Comment on above: Cholesterol level, D esirable <200 mg/dLBorderline high cholesterol 200-239 mg/dLHigh cholesterol >=240 mg/dLRecommendations of the NCEP Adult Treatment Panel for the following risk-cutoff thresholds for the [place] population. Serum or plasma urea nitroge n measurement (mass/volume)Ordered By: Alex Etienne on 10-05-2024 Urea nitrogen [Mass/Vol] 9 mg/dL 4-19 [facility] Sodium levelOrdered By: Etienne Etienne on 10-05-2024 Sodium [Moles/Vol] 139 mmol/L 133-145 [facility] TSH DL <= 0.005 mIU/L QnOrde red By: Alex Etienne on 10-05-2024 TSH Qn 0.573 uIU/mL 0.300-4.200 [facility] Thyroid Stim Hormone (TSH)on 10-05-2024 TSH 0.573 uIU/mL Normal 0.300-4.200 [facility] Comment on above: Order Comment: Order Date: 09/02/24Order Info: [id number] - CMPOrder Info: [id number] - LIPIDOrder Info: [id number] - TSH Performed By: #### L 501.9520, L501.9985, L500.4050, L500.4100, L100.0100 ####[facility] [address] [place], [place], [id number] Total proteinOrdered By: Dilia Etienne on 10-05-2024 Protein [Mass/Vol] 7.4 g/dL 5.9-8.4 [facility] Triglycerides measurementOrd ered By: Alex Etienne on 10-05-2024 Triglyceride [Mass/Vol] 142 mg/dL <199 [facility] Comment on above: The drugs N-Acetylcy steine and Metamizole may falsely depress this assay. Normal range: <150 mg/dLBorderline High: 150-199 mg/dLHigh: 200-499 mg/dLVery High: >500 mg/dL Vitamin D,25 Hydroxyon 10-05 Vitamin D 25-OH 36.6 ng/mL Normal 30-100 [facility] Comment on above: Order Comment: Order Date: 09/02/24Order Info: [id number] - CMPOrder Info: [id number] - LIPIDOrder Info: [id number] - TSH Result Comment: Ludivina min D Status Deficiency: <20 ng/mL (50nmol/L) Insufficiency: 20-30 ng/mL (50-75 nmol/L) Sufficiency: 30-100 ng/mL (75-250 nmol/L) Toxicity: >100 ng/mL (>250 nmol/L) Performed By: #### L 506.1001 ####[facility] [address] [place], [address] White blood cell (WBC) count Ordered By: Alex Etienne on 10-05-2024 WBC (Bld) [#/Vol] 9.2 10*3/uL 4.4-11.0 [facility] MR/BMS.Shen 09-23-2024 MR/BMSMaxineBVS [facility] [address] [place] [address] OFFICE VISIT Date of Service: 09/23/24 MR#: [id number] Acct: [id number] Name: ANN FLORES FERDINAND Rep #: [id number] : 1985 Provider: GASPER Woodruff Age/Sex: 38/F Location: [facility] Status: Signed Intake Vital Signs 04/09/24 13:06 [...] abnormal movements, (more content not included)... Normal [facility] Forearm 2 Viewson 09-05-2024 Forearm 2 Views [facility] Imaging Services [address] [place] [address] Forearm 2 Views MR#: [id number] Acct: [id number] Name: ANN FLORES Rep #: [id number] : 1985 F 38 From: Sachin Lord MD PCP: Dr. Alex Etienne MD Status: REG CLI Study: Forearm 2 Views Date of Exam: 09/05/24 Exam# [id number] Ordering Dr: Omid Sandra PROCEDURE: FOREARM 2 VIEWS 09/05/2024 REASON FOR EXAM: INJURY TECHNIQUE: 2 view(s) of the LEFT forearm COMPARISON: None FINDINGS: Fracture/dislocation: None visible. Joint space(s): Preserved. Soft tissues: Unremarkable. Foreign bodies: None visible. Bone mineralization: Unremarkable. Other: None. RAD/Forearm 2 Views IMPRESSION: No visible acute displaced fracture Reading Location: [id number] CC: Dr. Alex Etienne MD; GASPER Lawler Learning Disabilities Specialist: Signed Normal [facility] Urgent Care Visit Reporton 0 09-05-2024 Urgent Care Visit Report [facility] [address], [address] [place] [address] OFFICE VISIT Date of Service: 09/05/24 MR#: [id number] Acct: [id number] Name: ANN FLORES Rep #: [id number] : 1985 Provider: GASPER Lawler Age/Sex: 38/F Location: [facility] Status: Signed Intake Vital Signs 04/09/24 13:06 [...] 5 days ago. Taking otc pain reliver. [facility] Medical History Contusion of left forearm Atypical [...] PMH NC. No left wrist/elbow complaints. No auek-xnq-ryrsqar products taken to assist. No other associated [...] should symp (more content not included)... Normal [facility] Hemoglobin A1con 08-11-2024 HbA1c (Bld) [Mass fraction] 8.1 % Normal <=5.6 [facility] Comment on above: Performed By: #### L 501.9520, L501.9985 #### [facility] [address] [place], [place], [address] Hemoglobin A1c percentageOrd ered By: Alex Etienne on 08-11-2024 HbA1c (Bld) [Mass fraction] 8.1 % >5.7 [facility] TSH DL <= 0.005 mIU/L QnOrde red By: Alex Etienne on 08-11-2024 Thyroid Stimulating Hormone (TSH) 1.370 uIU/mL 0.300-4.200 [facility] TSH Qn 1.370 uIU/mL 0.300-4.200 [facility] Thyroid Stim Hormone (TSH)on 08-11-2024 TSH 1.370 uIU/mL Normal 0.300-4.200 [facility] Comment on above: Performed By: #### L 501.9520, L501.9985 #### [facility] [address] [place], [place], [id number] DOrdered By: Megha Etienne on 06-21-2024 Vitamin D 25-Hydroxy 39.0 ng/mL [facility] Comment on above: Vitamin D 25(OH) Sta tus Range Deficiency <20 ng/mL (50nmol/L) Insufficiency 20 - 30 ng/mL (50 - 75 nmol/L) Sufficiency 30 - 100 ng/mL (75 - 250 nmol/L) Toxicity >100 ng/mL (>250 nmol/L) Hemoglobin A1con 06-21-2024 HbA1c (Bld) [Mass fraction] 8.7 % High 3.8-5.6 [facility] Comment on above: Order Comment: Order Date: 06/17/24Order Info: [id number] - A1C Result Comment: Norm al < 5.7 % Prediabetic 5.7 - 6.4 % Diabetic >or= 6.5 % Please note range changes. Performed By: #### L 501.9520, L506.1000, L501.9985 ####[facility] [address] [place], [place], [address] Hemoglobin A1c percentageOrd ered By: Alex Etienne on 06-21-2024 HbA1c (Bld) [Mass fraction] 8.7 % High 3.8-5.6 [facility] Comment on above: Normal < 5.7 % Predi abetic 5.7 - 6.4 % Diabetic >or= 6.5 % Please note range changes. Serum or plasma thyroid stim ulating hormone (TSH) measurement (units/volume)Ordered By: Alex Etienne on 06-21-2024 TSH Qn 10.000 uIU/mL High 0.358-3.740 [facility] TSH QnOrdered By: Alex jerez on 06-21-2024 Thyroid Stimulating Hormone (TSH) 10.000 uIU/mL High 0.358-3.740 [facility] Thyroid Stim Hormone (TSH)on 06-21-2024 TSH 10.000 uIU/mL High 0.358-3.740 [facility] Comment on above: Order Comment: Order Date: 06/17/24 Order Info: [id number] - TSH Performed By: #### L 501.9520, L506.1000, L501.9927 #### [facility] [address] [place], [id number] Vitamin D,25 Hydroxyon 06-21 Vitamin D 25-OH 39.0 ng/mL Normal [facility] Comment on above: Order Comment: Order Date: 06/17/24 Order Info: [id number] - VITD25 Result Comment: Ludivina min D 25(OH) Status Range Deficiency <20 ng/mL (50nmol/L) Insufficiency 20 - 30 ng/mL (50 - 75 nmol/L) Sufficiency 30 - 100 ng/mL (75 - 250 nmol/L) Toxicity >100 ng/mL (>250 nmol/L) Performed By: #### L 501.9520, L5061000, P121.0565 #### [facility] [address] [place], [id number] Urgent Care Visit Reporton 0 06-18-2024 Urgent Care Visit Report [facility] [address] , [address] [place] [address] OFFICE VISIT Date of Service: 06/18/24 MR#: [id number] Acct: [id number] Name: ANN FLORES Rep #: [id number] : 1985 Provider: KEATON Younger Age/Sex: 38/F Location: [facility] Status: Signed Intake Vital Signs 04/09/24 13:06 [...] home: Yes additional social history: - [employer] HPI Chief Complaint: ST, TAPIA, congestion, cough [...] Loss of lordosis 06/18/24 1348 Date Jessy Lal Signature: Date (if applicable) CC: Normal [facility] Laboratory - Microbiology an d Antimicrobial susceptibilityon 05-20-2024 SARS-CoV-2 (COVID-19) RNA KAMLA+probe Ql (Unsp spec) Not detected [facility] No Panel Informationon 05-20 POC Nasal Swab Influenza A,B Not detected [facility] POC Nasal Swab RSV Not detected [facility] Office Visit Reporton 2024 Office Visit Report [facility] Services [address] [place] [address] OFFICE VISIT Date of Service: 05/20/24 MR#: [id number] Acct: [id number] Patient: ANN FLORES Rep #: [id number] : 1985 Provider: GASPER Orellana Age/Sex: 38/F Location: [facility] Status: Signed Employer Purchased Covid Test Note: Patient here today for Covid Testing, requested by their Employer. Assessment and Plan Plan Details Goals Barriers: Goals Decrease TAPIA Decrease spasm Decrease inflammation Barriers Loss of lordosis 05/20/24 1338 Date Dane JACKMAN Cosigner Signature: Date (if applicable) CC: Normal [facility] S. pyogenes Ag IA.rapid Ql ( Throat)on 05-20-2024 S. pyogenes Ag IA Ql (Unsp spec) Negative [facility] Urgent Care Visit Reporton 0 05-20-2024 Urgent Care Visit Report [facility] [address], [address] [place] [address] OFFICE VISIT Date of Service: 05/20/24 MR#: [id number] Acct: [id number] Name: ANN FLORES Rep #: [id number] : 1985 Provider: GAPSER Orellana Age/Sex: 38/F Location: [facility] Status: Signed Intake Vital Signs 04/09/24 13:06 Height 5 ft 7 in Intake Visit Reasons: SORE THROAT, COUGH, HEADACHE Chief Complaint: ST, TAPIA, congestion, cough Maintenance Mechanic Technician Required: No Is patient in pain?: No [...] upper respiratory infection: Status: Acute Medications: New tooxuzpdigeznbb-NI-sl aifenesin 60-15-400 mg (Capmist DM) do not [...] you fallen in the past year?: No 05/20/2401 Date Dane Lal Signature: Date (if applicable) CC: Normal [facility] Urgent Care Visit Report [facility] [address], [address] [place] [address] OFFICE VISIT Date of Service: 05/20/24 MR#: [id number] Acct: [id number] Name: ANN FLORES Rep #: [id number] : 1985 Provider: GASPER Orellana Age/Sex: 38/F Location: [facility] Status: Signed Intake Vital Signs 04/09/24 13:06 05/20/24 07:44 Height 5 ft 7 in BP 126/60 H Blood Pressure Location Lt brachial Position Sitting Respiration 16 Pulse 76 Pulse Source NIBP Temp 98.5 F Temp Source Oral Pulse Oximetry (%) 96 Oxygen Delivery Method room air 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 Chief Complaint: ST, TAPIA, congestion Maintenance Mechanic Technician Required: No Is patient in pain?: No [...] Lal Signature: Date (if applicable) CC: Normal [facility] Office Visit Reporton 2023 Office Visit Report [facility] [address] [place] [address] OFFICE VISIT Date of Service: 04/09/24 MR#: [id number] Acct: [id number] Patient: ANN FLORES Rep #: [id number] : 1985 Provider: KEATON garza Age/Sex: 38/F Location: [facility] Status: Signed Intake Vital Signs 02/24/24 16:50 [...] FLU 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 Chief Complaint: flu vaccine Maintenance Mechanic Technician Required: No Is patient in pain?: No Allergies No Known Allergies Allergy (Verified 04/09/24 13:16) PFSH Medical History (Updated 02/24/24 @ 17:51 by Omid JACKMAN PA) Atypical chest pain Cough Hypothyroidism Back [...] the office today for Immunizations Flucelvax Triv [id number] (PF) 45 mcg (15 mcg x 3)/0.5 mL IM syringe Performing Provider: KEATON Prince Performing Location[facility] Administered by: Margarita Otero on 04/09/24 13:17 Dose Route Admin Location Dispensed Lot Number Expiration Date [facility] Man ufacturer 0.5 mL IM Right Deltoid 0.5 mL [id number] 10/05/24 30572-130-14 [employer] VIS Given Date VIS Provided VIS Publication Date 04/09/24 Single Vaccine 24 Eligibility Eligibility Date Funding Source Not Applicable Coding Level of Care Code No Charge Assessment and Plan Assessment and Plan Orders: Orders Influenza Immunization 04/09/24 Z23 - Encounter for immunization Plan Details Goals Barriers: Goals Decrease TAPIA Decrease spasm Decrease inflammation Barriers Loss of lordosis 04/10/24 1356 Date Arden Hermelinda [employer] SUPERVISOR KEATON Zavalaer Signature: Date (if applicable) CC: Normal [facility] Chest PA and Lateralon 02-23 Chest PA and Lateral [facility] Imaging Services [address] [place] [address] Chest PA and Lateral MR#: [id number] Acct: [id number] Name: ANN FLORES Rep #: [id number] : 1985 F 38 From: Arsen tovar MD PCP: Dr. Alex Etienne MD Status: REG CLI Study: Chest PA and Lateral Date of Exam: 02/24/24 Exam# [id number] Ordering Dr: Omid Sandra [id number] INDICATION: cough EXAMINATION/TECHNIQUE : X-RAY - XR Chest 2 Views COMPARISON: 03/05/2018 FINDINGS: The lungs are clear. The cardiomediastinal silhouette is unremarkable. No pleural effusion or pneumothorax. No acute osseous abnormalities. RAD/Chest PA and Lateral IMPRESSION: No acute radiographic abnormalities. Electronically Signed: Arsen Barron MD at 16:54 EDT , CC: Dr. Alex Etienne MD; GASPER Lawler Learning Disabilities Specialist: Signed Normal [facility] Urgent Care Visit Reporton 1 Urgent Care Visit Report [facility] [address] [place] [address] OFFICE VISIT Date of Service: 02/24/24 MR#: [id number] Acct: [id number] Name: ANN FLORES Rep #: [id number] : 1985 Provider: GASPER Lawler Age/Sex: 38/F Location: [facility] Status: Signed Intake Vital Signs 09/10/23 15:03 [...] heaviness, fatigue Chief Complaint: chest heaviness, fatigue Maintenance Mechanic Technician Required: No Accompanied by: Self Is patient [...] week history of progressively worsening intermittent chest, heaviness with mild fatigue and rare occasional cough. No complaints of fever, chills, sweats, lightheadedness/dizzi ness, nausea/vomiting, or chest pressure with shortness of breath or dyspnea on exertion. Ex-smoker. Several close contacts with similar URI complaints, including several people she knows with pneumonia and is concerned she may have contracted the same. No hcki-rub-gyzyhuf products taken to assist. No other associated symptoms and no other alleviating/aggravati ng factors. ROS Const Constitutional: No other (As above) Exam Const General: cooperative, healthy appearing and no acute distress Orientation: alert and awake HENMT Head: normal to inspection Ears: hearing grossly [...] status g (more content not included)... Normal [facility] Cervical or vaginal specimen microscopic examination by liquid based cytology (reportOrdered By: Kelley Higuera on 08-27-2023 Cytology report Cyto stain.thin prep Doc (Cvx/Vag) Comment . [facility] Comment on above: Criteria not met, HP V Genotype not performed.Performed at: - [facility] [id number] Director: Aruna Meehan MD, Phone: [phone] at: = - [facility] [id number] Director: Aruna Meehan MD, Phone: [phone] Cervical or vagninal specime n microscopic examination by cytology stain (reported asOrdered By: Kelley Higuera on 08-27-2023 Cytology report Cyto stain Doc (Cvx/Vag) Comment . [facility] Comment on above: The Pap smear [...] DNA Probe+sig amp Ql (Cvx) Negative Negative [facility] Comment on above: This nucleic acid am plification test detects fourteen high-risk HPV types (16,18,31,33,35,39,45,51,52,56,58,59,66,68)without differentiation. Laboratory - CytologyOrdered By: Kelley Higuera on 08-27-2023 Geotechnical Engineer Cyto stain Nom (Cvx/Vag) [ID] Comment . [facility] Comment on above: Armando Camejo Cyt otechnologist (ASCP) Laboratory - Miscellaneous t estsOrdered By: Kelley Higuera on 08-27-2023 Service comment (Unsp spec) [Interp] . . [facility] Thin prep Papanicolaou smear with manual screeningOrdered By: Kelley Higuera on 08-27-2023 Thin prep Papanicolaou smear with manual screening Comment . [facility] Comment on above: NEGATIVE FOR INTRAEP ITHELIAL LESION OR MALIGNANCY. This liquid based Th inPrep(R) pap test was screened withthe use of an image guided system. Absolute lymphocyte countOrd ered By: Kelsie Csaey on 08-07-2023 Lymphocytes Auto (Unsp spec) [#/Vol] 2.60 10*3/uL 0.83-4.51 [facility] Automated lymphocyte count a s percentage of total leukocytesOrdered By: Kelsie Neringer on 08-07-2023 Lymphocytes/100 WBC Auto (Unsp spec) 31.5 % 19-41 [facility] Basophil percentageOrdered B y: Kelsie Neringer on 08-07-2023 Basophils/100 WBC (Bld) 0.2 % 0-1 [facility] Bilirubin [Mass/Vol] 0.50 mg/dL 0.20-1.00 [facility] Comment on above: For patients on eltr ombopag therapy, use of Dimension [place] TBIL is not recommended. Chloride [Moles/Vol] 107 mmol/L 98-107 [facility] Cholesterol [Mass/Vol] 122 mg/dL <200 [facility] Comment on above: <200 mg/dL Desirable 200-240 mg/dL Borderline >240 mg/dL High Risk Eosinophils/100 WBC (Bld) 1.1 % 0-5 [facility] Glucose [Mass/Vol] 119 mg/dL 74-106 [facility] Comment on above: Fasting Glucose resu lt from 100 to 125 mg/dL suggests IMPAIRED HOMEOSTASIS per A.D.A. criteria. Hemoglobin (Bld) [Mass/Vol] 13.9 g/dL 12.0-15.0 [facility] Monocytes/100 WBC (Bld) 6.7 % 0-10 [facility] Neutrophils (Bld) [#/Vol] 5.0 10*3/uL 2.0-7.7 [facility] Neutrophils/100 WBC (Bld) 60.3 % 47-70 [facility] Potassium [Moles/Vol] 3.5 mmol/L 3.5-5.1 [facility] Protein [Mass/Vol] 7.3 g/dL 6.4-8.2 [facility] Sodium [Moles/Vol] 137 mmol/L 136-145 [facility] Triglyceride [Mass/Vol] 145 mg/dL <199 [facility] Comment on above: The drugs N-Acetylcy steine and Metamizole may falsely depress this assay.Serum Triglycerides Reference Interval Normal <150 mg/dL Borderline high 150 - 199 mg/dL High 200 - 499 mg/dL Very High > or = 500 mg/dL WBC (Bld) [#/Vol] 8.3 10*3/uL 4.4-11.0 [facility] Determination of erythrocyte mean corpuscular volume (MCV)Ordered By: Kelsie Casey on 08-07-2023 MCV (RBC) [Entitic vol] 87.9 fL 81-99 [facility] Erythrocyte distribution wid th ratioOrdered By: Kelsie Casey on 08-07-2023 Erythrocyte distribution width (RBC) [Ratio] 13.2 % 11.6-14.6 [facility] Erythrocyte distribution wid th standard deviationOrdered By: Kelsie Casey on 08-07-2023 Erythrocyte distribution width (RBC) [Entitic vol] 42.5 fL 35.1-43.9 [facility] Hematocrit Auto (Bld) [Volum e fraction]Ordered By: Kelsie Casey on 08-07-2023 Hematocrit (Bld) [Volume fraction] 42.1 % 37-47 [facility] Immature granulocytes/100 WB C Auto (Bld)Ordered By: Kelsie Casey on 08-07-2023 Immature granulocytes/100 WBC (Bld) 0.200 % 0.0-0.9 [facility] Comment on above: IG% - Immature Granu locytes (promyelocytes, myelocytes and metamyelocytes) > 1% indicates that a LEFT SHIFT is Present. Laboratory - Chemistry and C hemistry - challengeOrdered By: Kelsie Casey on 08-07-2023 Albumin/Globulin [Mass ratio] 1.0 {ratio} 0.9-2.4 [facility] ALP [Catalytic activity/Vol] 87 U/L 45-117 [facility] ALT [Catalytic activity/Vol] 37 U/L 13-56 [facility] Cholesterol in HDL [Mass/Vol] 33 mg/dL >40 [facility] Comment on above: The drugs N-Acetylcy steine and Metamizole may falsely depress this assay. Reference Range HDL <40 mg/dL Low HDL Cholesterol HDL >or= 60 mg/dL High HDL Cholesterol Cholesterol in LDL [Mass/Vol] 60 mg/dL 0-130 [facility] CO2 [Moles/Vol] 25.0 mmol/L 21.0-32.0 [facility] Ferritin [Mass/Vol] 180 ng/mL 8-252 [facility] Globulin (S) [Mass/Vol] 3.7 g/dL 2.2-4.2 [facility] Urea nitrogen/Creatinine [Mass ratio] 12.4 mg/mg 10-20 [facility] Laboratory - Hematology and Cell countsOrdered By: Kelsie Casey on 08-07-2023 MCH (RBC) [Entitic mass] 29.0 pg 27.0-32.0 [facility] MCHC (RBC) [Mass/Vol] 33.0 g/dL 32-36 [facility] Nucleated RBC/100 WBC (Bld) [Ratio] 0 % 0-5 [facility] Platelet mean volume (Bld) [Entitic vol] 11.4 fL 6.2-12.0 [facility] Platelets (Bld) [#/Vol] 280 10*3/uL 150-450 [facility] No Panel InformationOrdered By: Kelsie Casey on 08-07-2023 Estimated GFR (MDRD) Amer 116 mL/min >60 [facility] Comment on above: GFR Calc Estimated GFR (MDRD) Non-Af Amer 96 mL/min >60 [facility] Comment on above: Non- GFR Calc VLDL Cholesterol 29 mg/dL 5-40 [facility] RBC Auto (Bld) [#/Vol]Ordere d By: Kelsie Casey on 08-07-2023 RBC (Bld) [#/Vol] 4.79 10*6/uL 4.2-5.4 [facility] Serum or plasma calcium kate urement (mass/volume)Ordered By: Kelsie Casey on 08-07-2023 Calcium [Mass/Vol] 9.2 mg/dL 8.5-10.1 [facility] Serum or plasma creatinine m easurement (mass/volume)Ordered By: Kelsie Casey on 08-07-2023 Creatinine [Mass/Vol] 0.72 mg/dL 0.55-1.02 [facility] Comment on above: The validity of the calculated GFR & GFRAA in patients over 70 years has not been determined. Clinical correlation is essential. Serum or plasma thyroid stim ulating hormone (TSH) measurement (units/volume)Ordered By: Kelsie Casey on 08-07-2023 TSH Qn 1.27 uIU/mL 0.358-3.74 [facility] Serum or plasma urea nitroge n measurement (mass/volume)Ordered By: Kelsie Casey on 08-07-2023 Urea nitrogen [Mass/Vol] 9 mg/dL 7-18 [facility] Thin prep Papanicolaou smear with manual screeningOrdered By: Kelsie Casey on 08-07-2023 Thin prep Papanicolaou smear with manual screening 3.6 g/dL 3.2-5.0 [facility] Thin prep Papanicolaou smear with manual screening 20 U/L 15-37 [facility] Thin prep Papanicolaou smear with manual screening 5 5-15 [facility] Thin prep Papanicolaou smear with manual screening 1.28 ng/dL 0.76-1.46 [facility] Whole blood hemoglobin A1c/t otal hemoglobin ratio (mass fraction)Ordered By: Kelsie Casey on 08-07-2023 HbA1c (Bld) [Mass fraction] 6.2 % 3.8-5.6 [facility] Comment on above: Normal < 5.7 % Predi abetic 5.7 - 6.4 % Diabetic >or= 6.5 % Please note range changes. Absolute lymphocyte countOrd ered By: Alex Etienne on 03-20-2023 Lymphocytes Auto (Unsp spec) [#/Vol] 2.44 10*3/uL 0.83-4.51 [facility] Basophil percentageOrdered B y: Alex Etienne on 03-20-2023 Basophils/100 WBC (Bld) 0.4 % 0-1 [facility] Bilirubin [Mass/Vol] 0.30 mg/dL 0.20-1.00 [facility] Comment on above: For patients on eltr ombopag therapy, use of Dimension [place] TBIL is not recommended. Chloride [Moles/Vol] 105 mmol/L 98-107 [facility] Eosinophils/100 WBC (Bld) 1.0 % 0-5 [facility] Glucose [Mass/Vol] 151 mg/dL 74-106 [facility] Comment on above: Fasting Glucose resu lt greater than or equal to 126 mg/dL suggests DIABETES MELLITUS per A.D.A. criteria. Neutrophils (Bld) [#/Vol] 8.2 10*3/uL 2.0-7.7 [facility] Neutrophils/100 WBC (Bld) 70.7 % 47-70 [facility] Potassium [Moles/Vol] 3.5 mmol/L 3.5-5.1 [facility] Protein [Mass/Vol] 7.7 g/dL 6.4-8.2 [facility] Sodium [Moles/Vol] 138 mmol/L 136-145 [facility] WBC (Bld) [#/Vol] 11.6 10*3/uL 4.4-11.0 [facility] Blood erythrocytes count (nu mber/volume)Ordered By: Alex Etienne on 03-20-2023 RBC (Bld) [#/Vol] 4.84 10*6/uL 4.2-5.4 [facility] Blood hemoglobin measurement (mass/volume)Ordered By: Alex Etienne on 03-20-2023 Hemoglobin (Bld) [Mass/Vol] 14.0 g/dL 12.0-15.0 [facility] Blood lymphocytes/100 leukoc ytesOrdered By: Alex Etienne on 03-20-2023 Lymphocytes/100 WBC (Bld) 21.1 % 19-41 [facility] Blood monocytes/100 leukocyt esOrdered By: Alex Etienne on 03-20-2023 Monocytes/100 WBC (Bld) 6.5 % 0-10 [facility] Blood platelet mean volumeOr dered By: Alex Etienne on 03-20-2023 Platelet mean volume (Bld) [Entitic vol] 11.7 fL 6.2-12.0 [facility] Determination of erythrocyte mean corpuscular volume (MCV)Ordered By: Alex Etienne on 03-20-2023 MCV (RBC) [Entitic vol] 90.1 fL 81-99 [facility] Hematocrit Auto (Bld) [Volum e fraction]Ordered By: Alex Jaimie on 03-20-2023 Hematocrit (Bld) [Volume fraction] 43.6 % 37-47 [facility] Laboratory - Chemistry and C hemistry - challengeOrdered By: [facility] on 03-20-2023 ALP [Catalytic activity/Vol] 94 U/L 45-117 [facility] ALT [Catalytic activity/Vol] 35 U/L 13-56 [facility] CO2 [Moles/Vol] 26.0 mmol/L 21.0-32.0 [facility] Globulin (S) [Mass/Vol] 4.2 g/dL 2.2-4.2 [facility] Urea nitrogen/Creatinine [Mass ratio] 15.9 mg/mg 10-20 [facility] Laboratory - Hematology and Cell countsOrdered By: [facility] on 03-20-2023 Erythrocyte distribution width (RBC) [Entitic vol] 43.1 fL 35.1-43.9 [facility] Erythrocyte distribution width (RBC) [Ratio] 13.1 % 11.6-14.6 [facility] Immature granulocytes/100 WBC (Bld) 0.300 % 0.0-0.9 [facility] Comment on above: IG% - Immature Granu locytes (promyelocytes, myelocytes and metamyelocytes) > 1% indicates that a LEFT SHIFT is Present. MCH (RBC) [Entitic mass] 28.9 pg 27.0-32.0 [facility] Nucleated RBC/100 WBC (Bld) [Ratio] 0 % 0-5 [facility] MCHC Auto (RBC) [Mass/Vol]Or dered By: [facility] on 03-20-2023 MCHC (RBC) [Mass/Vol] 32.1 g/dL 32-36 [facility] No Panel InformationOrdered By: Alex Etienne on 03-20-2023 Estimated GFR (MDRD) Amer 110 mL/min >60 [facility] Comment on above: GFR Calc Estimated GFR (MDRD) Non-Af Amer 91 mL/min >60 [facility] Comment on above: Non- GFR Calc Thyroid Stimulating Hormone (TSH) 1.19 uIU/mL 0.358-3.74 [facility] Vitamin D 25-Hydroxy 73.9 ng/mL [facility] Comment on above: Vitamin D 25(OH) Sta tus Range Deficiency <20 ng/mL (50nmol/L) Insufficiency 20 - 30 ng/mL (50 - 75 nmol/L) Sufficiency 30 - 100 ng/mL (75 - 250 nmol/L) Toxicity >100 ng/mL (>250 nmol/L) Platelets bldOrdered By: Dilia Etienne on 03-20-2023 Platelets (Bld) [#/Vol] 298 10*3/uL 150-450 [facility] Serum or plasma albumin kate urement (mass/volume)Ordered By: Alex Etienne on 03-20-2023 Albumin [Mass/Vol] 3.5 g/dL 3.2-5.0 [facility] Serum or plasma albumin/glob ulin mass ratioOrdered By: Alex Etienne on 03-20-2023 Albumin/Globulin [Mass ratio] 0.8 {ratio} 0.9-2.4 [facility] Serum or plasma calcium kate urement (mass/volume)Ordered By: Alex Etienne on 03-20-2023 Calcium [Mass/Vol] 8.8 mg/dL 8.5-10.1 [facility] Serum or plasma creatinine m easurement (mass/volume)Ordered By: Alex Etienne on 03-20-2023 Creatinine [Mass/Vol] 0.75 mg/dL 0.55-1.02 [facility] Comment on above: The validity of the calculated GFR & GFRAA in patients over 70 years has not been determined. Clinical correlation is essential. Serum or plasma urea nitroge n measurement (mass/volume)Ordered By: Alex Etienne on 03-20-2023 Urea nitrogen [Mass/Vol] 12 mg/dL 7-18 [facility] Thin prep Papanicolaou smear with manual screeningOrdered By: Alex Etienne on 03-20-2023 Thin prep Papanicolaou smear with manual screening 18 U/L 15-37 [facility] Thin prep Papanicolaou smear with manual screening 7 5-15 [facility] Whole blood hemoglobin A1c/t otal hemoglobin ratio (mass fraction)Ordered By: Alex Etienne on 03-20-2023 HbA1c (Bld) [Mass fraction] 6.1 % 3.8-5.6 [facility] Comment on above: Normal < 5.7 % Predi abetic 5.7 - 6.4 % Diabetic >or= 6.5 % Please note range changes. Laboratory - Chemistry and C hemistry - challengeOrdered By: Kelsie Casey on 12-30-2022 Free T4 [Mass/Vol] 1.09 ng/dL 0.76-1.46 [facility] No Panel InformationOrdered By: Kelsie Casey on 12-30-2022 Thyroid Stimulating Hormone (TSH) 2.28 uIU/mL 0.358-3.74 [facility] CNCOon 11-05-[address] [facility] CNOVon 10-24-2022 CNOV Office Visit (OBGYWM ) ANN FLORES ([id number]) 1985 F Date Time Provider Department 10/24/22 10:30 AM PREET SAUCEDO OBSTEFAN During your visit today, we recorded the following information about you: Blood pressure Weight Height 100/62 101.8 kg 1.702 m Preet Saucedo MD 10/24/2022 11:20 AM Signed Client Relationship Consultant offered: Patient declinesMaxine Miller is a 37 year old who presents for an annual gynecologic exam without complaints. Menses: no menses - Mirena IUD. 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: Sexual Activity: Yes; Male Contraception: [...] external genitalia normal, normal Bartholin's glands, urethra, [place]'s glands, no vulvar lesions, no cervical lesions, [...] Screening for cervical cancer [Z12.4] Order(s):PAP TEST [[id number]] Order #: [id number]. #:[id number] Prescriptions as of 10/24/2022 - buPROPion XL [...] for Encounter Date Provider Department Center 10/24/2022 [id number] SAUCEDO (more content not included)... Normal [facility] HPV W/GENOTYPE THIN PREPon 0 10-24-2022 HPV 16 Ag Ql (Unsp spec) Negative Normal Neg ative for HPV DNA high risk type [address] [facility] Comment on above: Order Comment: Speci men Type: FLUID SPECIMEN Ordering Facility: [facility] Address: [address] [place] [address] Performed By: #### H PVHRT #### [facility] CLIA [id number] [address] [place] [address] [place] HPV 18 Ag Ql (Unsp spec) Negative Normal Neg ative for HPV DNA high risk type [address] [facility] Comment on above: Order Comment: Speci men Type: FLUID SPECIMEN Ordering Facility: [facility] Address: [address] [place] [address] Performed By: #### H PVHRT #### [facility] CLIA [id number] [address] [place] [address] [place] HPV 31+33+35+39+45+51+52+56+ 58+59+66+68 DNA KAMLA+probe Ql (Cvx) Negative for HPV DNA high risk types: 31,33,35,39,45,51,52, 56,58,59,66,68 by PCR. Normal Negative for HPV DNA high risk types: 31,33,35,39,4 5,51,52,56,58 ,59,66,[address] [facility] Comment on above: Order Comment: Speci men Type: FLUID SPECIMEN Ordering Facility: [facility] Address: [address] [place] [address] Performed By: #### H PVHRT #### [facility] CLIA [id number] [address] [place] [address] [place] PAP TESTon 10-24-[address] [facility] Comment on above: Order Comment: Speci men Type: FLUID SPECIMEN Ordering Facility: [facility] Address: [address] [place] [address] Result Comment: Gyne cologic Cytology Report Case: [id number] Authorizing Provider: Preet Saucedo MD Collected: 10/24/2022 10:55 AM Ordering Location: OB/Gynecology Received: 10/24/2022 11:56 AM First Screen: Gem Wiseman Pathologist: Lluvia Mccarthy MD Specimen: Pap Test, ThinPrep, Cervix Performed By: #### L [id number] #### [facility] CLIA [id number] [address] [place] [address] [place] CLINICAL HISTORY, CYTOLOGY, PRODUCTION WORKER Intra Uterine Device Normal [facility] Comment on above: Order Comment: Speci men Type: FLUID SPECIMEN Ordering Facility: [facility] Address: [address] [place] [address] Performed By: #### L [id number] #### [facility] CLIA [id number] [address] [place] [address] STATES OF [facility] CYTOLOGY INTERPRETATION PAP Abnormal [facility] Comment on above: Order Comment: Speci men Type: FLUID SPECIMEN Ordering Facility: [facility] Address: [address] [place] [address] Result Comment: Epit helial cell abnormality. Atypical squamous cells of undetermined significance (ASC-US) Performed By: #### L [id number] #### [facility] CLIA [id number] [address] [place] [address] FINAL DIAGNOSIS A - Cervix Normal [facility] Comment on above: Order Comment: Speci men Type: FLUID SPECIMEN Ordering Facility: [facility] Address: [address] [place] [address] Result Comment: Sati sfactory for interpretation Epithelial cell abnormality. Atypical squamous cells of undetermined significance (ASC-US) Performed By: #### L [id number] #### [facility] CLIA [id number] [address] [place] FINAL PERFORMING LAB Normal [facility] Comment on above: Order Comment: Speci men Type: FLUID SPECIMEN Ordering Facility: [facility] Address: [address] [address] Result Comment: Tech nical component, stock order lister screening performed at [facility] [id number] CLIA# [id number] Diagnostic interpretation performed at [facility], [address] [facility] [address] CLIA# [id number] Auto Service Representative: Raffaele Fernandez M.D. Performed By: #### L [id number] #### [facility] CLIA [id number] [address] [place] [address] [place] HPV REFLEX Auto HPV Normal [facility] Comment on above: Order Comment: Speci men Type: FLUID SPECIMEN Ordering Facility: [facility] Address: [address] [place] [address] Performed By: #### L [id number] #### [facility] CLIA [id number] [address] [place] [address] [place] LMP 09/10/[address] [facility] Comment on above: Order Comment: Speci men Type: FLUID SPECIMEN Ordering Facility: [facility] Address: [address] [place] [address] Performed By: #### L [id number] #### [facility] CLIA [id number] [address] [place] [address] [place] PAP DISCLAIMER COMMENT The Pap Smear is a screening test for cervical cancer. False negative results occur with all screening tests, emphasizing the need for rescreening at recommended intervals, and clinical correlation. Normal [facility] Comment on above: Order Comment: Speci men Type: FLUID SPECIMEN Ordering Facility: [facility] Address: [address] [place] [address] Performed By: #### L [id number] #### [facility] CLIA [id number] [address] [place] [address] [place] PAP ROUTEMAN COMMENT This specimen has been analyzed by the [employer] Imaging System, an automated imaging and review system, which assists the laboratory in evaluating cells on ThinPrep Pap tests. Following automated imaging, selected powers from every slide are reviewed by a stock order lister. Normal [facility] Comment on above: Order Comment: Speci men Type: FLUID SPECIMEN Ordering Facility: [facility] Address: [address] [id number] Performed By: #### L [id number] #### [facility] CLIA [id number] [address] [facility] [id number] [place] Culture, urineOrdered By: Josiah Casey on 10-22-2022 Bacteria identified Cx Nom (U) Positive [facility] Culture, urineOrdered By: Josiah Casey on 10-20-2022 Bacteria identified Cx Nom (U) Positive [facility] No Panel InformationOrdered By: Kelsie Casey on 08-05-2022 Thyroid Stimulating Hormone (TSH) 4.33 uIU/mL 0.358-3.74 [facility] Whole blood hemoglobin A1c/t otal hemoglobin ratio (mass fraction)Ordered By: Kelsie Casey on 08-05-2022 HbA1c (Bld) [Mass fraction] 6.3 % 3.8-5.6 [facility] Comment on above: Normal < 5.7 % Predi abetic 5.7 - 6.4 % Diabetic >or= 6.5 % Please note range changes. Absolute lymphocyte countOrd ered By: Kelsie Casey on 05-23-2022 Lymphocytes Auto (Unsp spec) [#/Vol] 2.90 10*3/uL 0.83-4.51 [facility] Basophil percentageOrdered B y: Kelsie Casey on 05-23-2022 Basophils/100 WBC (Bld) 0.4 % 0-1 [facility] Bilirubin [Mass/Vol] 0.70 mg/dL 0.20-1.00 [facility] Comment on above: For patients on eltr ombopag therapy, use of Dimension [place] TBIL is not recommended. Chloride [Moles/Vol] 104 mmol/L 98-107 [facility] Cholesterol [Mass/Vol] 146 mg/dL <200 [facility] Comment on above: <200 mg/dL Desirable 200-240 mg/dL Borderline >240 mg/dL High Risk Eosinophils/100 WBC (Bld) 1.5 % 0-5 [facility] Glucose [Mass/Vol] 121 mg/dL 74-106 [facility] Comment on above: Fasting Glucose resu lt from 100 to 125 mg/dL suggests IMPAIRED HOMEOSTASIS per A.D.A. criteria. Neutrophils (Bld) [#/Vol] 5.5 10*3/uL 2.0-7.7 [facility] Neutrophils/100 WBC (Bld) 59.4 % 47-70 [facility] Potassium [Moles/Vol] 4.0 mmol/L 3.5-5.1 [facility] Protein [Mass/Vol] 7.7 g/dL 6.4-8.2 [facility] Sodium [Moles/Vol] 140 mmol/L 136-145 [facility] Triglyceride [Mass/Vol] 146 mg/dL <199 [facility] Comment on above: The drugs N-Acetylcy steine and Metamizole may falsely depress this assay.Serum Triglycerides Reference Interval Normal <150 mg/dL Borderline high 150 - 199 mg/dL High 200 - 499 mg/dL Very High > or = 500 mg/dL WBC (Bld) [#/Vol] 9.2 10*3/uL 4.4-11.0 [facility] Blood erythrocytes count (nu mber/volume)Ordered By: Kelsie Casey on 05-23-2022 RBC (Bld) [#/Vol] 5.05 10*6/uL 4.2-5.4 [facility] Blood hemoglobin measurement (mass/volume)Ordered By: Kelsie Casey on 05-23-2022 Hemoglobin (Bld) [Mass/Vol] 15.0 g/dL 12.0-15.0 [facility] Blood lymphocytes/100 leukoc ytesOrdered By: Kelsie Casey on 05-23-2022 Lymphocytes/100 WBC (Bld) 31.5 % 19-41 [facility] Blood monocytes/100 leukocyt esOrdered By: Kelsie Casey on 05-23-2022 Monocytes/100 WBC (Bld) 6.9 % 0-10 [facility] Blood platelet mean volumeOr dered By: Kelsie Casey on 05-23-2022 Platelet mean volume (Bld) [Entitic vol] 11.4 fL 6.2-12.0 [facility] Determination of erythrocyte mean corpuscular volume (MCV)Ordered By: Kelsie Casey on 05-23-2022 MCV (RBC) [Entitic vol] 88.1 fL 81-99 [facility] Hematocrit Auto (Bld) [Volum e fraction]Ordered By: Kelsie Casey on 05-23-2022 Hematocrit (Bld) [Volume fraction] 44.5 % 37-47 [facility] Laboratory - Chemistry and C hemistry - challengeOrdered By: Kelsie Casey on 05-23-2022 ALP [Catalytic activity/Vol] 91 U/L 45-117 [facility] ALT [Catalytic activity/Vol] 67 U/L 13-56 [facility] CO2 [Moles/Vol] 27.0 mmol/L 21.0-32.0 [facility] Cobalamin (Vitamin B12) [Mass/Vol] 452 pg/mL 211-911 [facility] Globulin (S) [Mass/Vol] 3.8 g/dL 2.2-4.2 [facility] Magnesium [Mass/Vol] 2.2 mg/dL 1.6-2.6 [facility] Urea nitrogen/Creatinine [Mass ratio] 20.8 mg/mg 10-20 [facility] Laboratory - Hematology and Cell countsOrdered By: Kelsie Casey on 05-23-2022 Erythrocyte distribution width (RBC) [Entitic vol] 41.5 fL 35.1-43.9 [facility] Erythrocyte distribution width (RBC) [Ratio] 12.8 % 11.6-14.6 [facility] Immature granulocytes/100 WBC (Bld) 0.300 % 0.0-0.9 [facility] Comment on above: IG% - Immature Granu locytes (promyelocytes, myelocytes and metamyelocytes) > 1% indicates that a LEFT SHIFT is Present. MCH (RBC) [Entitic mass] 29.7 pg 27.0-32.0 [facility] Nucleated RBC/100 WBC (Bld) [Ratio] 0 % 0-5 [facility] Auto (RBC) [Mass/Vol]Or dered By: Kelsie Casey on 05-23-2022 MCHC (RBC) [Mass/Vol] 33.7 g/dL 32-36 [facility] No Panel InformationOrdered By: Kelsie Casey on 05-23-2022 Estimated GFR (MDRD) Amer 137 mL/min >60 [facility] Comment on above: GFR Calc Estimated GFR (MDRD) Non-Af Amer 114 mL/min >60 [facility] Comment on above: Non- GFR Calc Thyroid Stimulating Hormone (TSH) 4.39 uIU/mL 0.358-3.74 [facility] Vitamin D 25-Hydroxy 47.1 ng/mL [facility] Comment on above: Vitamin D 25(OH) Sta tus Range Deficiency <20 ng/mL (50nmol/L) Insufficiency 20 - 30 ng/mL (50 - 75 nmol/L) Sufficiency 30 - 100 ng/mL (75 - 250 nmol/L) Toxicity >100 ng/mL (>250 nmol/L) Platelets bldOrdered By: Neymar Casey on 05-23-2022 Platelets (Bld) [#/Vol] 277 10*3/uL 150-450 [facility] Serum or plasma albumin kate urement (mass/volume)Ordered By: Kelsie Casey on 05-23-2022 Albumin [Mass/Vol] 3.9 g/dL 3.2-5.0 [facility] Serum or plasma albumin/glob ulin mass ratioOrdered By: Kelsie Casey on 05-23-2022 Albumin/Globulin [Mass ratio] 1.0 {ratio} 0.9-2.4 [facility] Serum or plasma calcium kate urement (mass/volume)Ordered By: Kelsie Casey on 05-23-2022 Calcium [Mass/Vol] 9.2 mg/dL 8.5-10.1 [facility] Serum or plasma cholesterol in HDL measurement (mass/volume)Ordered By: Kelsie Casey on 05-23-2022 Cholesterol in HDL [Mass/Vol] 34 mg/dL >40 [facility] Comment on above: The drugs N-Acetylcy steine and Metamizole may falsely depress this assay. Reference Range HDL <40 mg/dL Low HDL Cholesterol HDL >or= 60 mg/dL High HDL Cholesterol Serum or plasma cholesterol in VLDL measurement (mass/volume)Ordered By: Kelsie Casey on 05-23-2022 Cholesterol in VLDL [Mass/Vol] 29 mg/dL 5-40 [facility] Serum or plasma creatinine m easurement (mass/volume)Ordered By: Kelsie Casey on 05-23-2022 Creatinine [Mass/Vol] 0.63 mg/dL 0.55-1.02 [facility] Comment on above: The validity of the calculated GFR & GFRAA in patients over 70 years has not been determined. Clinical correlation is essential. Serum or plasma ferritin eloy surement (mass/volume)Ordered By: Kelsie Casey on 05-23-2022 Ferritin [Mass/Vol] 259 ng/mL 8-252 [facility] Serum or plasma low density lipoprotein (LDL) cholesterol measurement (mass/volume)Ordered By: Kelsie Casey on 05-23-2022 Cholesterol in LDL [Mass/Vol] 83 mg/dL 0-130 [facility] Serum or plasma urea nitroge n measurement (mass/volume)Ordered By: Kelsie Casey on 05-23-2022 Urea nitrogen [Mass/Vol] 13 mg/dL 7-18 [facility] Thin prep Papanicolaou smear with manual screeningOrdered By: Kelsie Casey on 05-23-2022 Thin prep Papanicolaou smear with manual screening 34 U/L 15-37 [facility] Thin prep Papanicolaou smear with manual screening 9 5-15 [facility] Whole blood hemoglobin A1c/t otal hemoglobin ratio (mass fraction)Ordered By: Kelsie Casey on 05-23-2022 HbA1c (Bld) [Mass fraction] 6.5 % 3.8-5.6 [facility] Comment on above: Normal < 5.7 % Predi abetic 5.7 - 6.4 % Diabetic >or= 6.5 % Please note range changes. Absolute lymphocyte counton 07-31-2021 Lymphocytes Auto (Unsp spec) [#/Vol] 2.95 10*3/uL 0.83-4.51 [facility] Work Phone: Basophil percentageon 2021 Basophils/100 WBC (Bld) 0.5 % 0-1 [facility] Work Phone: Bilirubin [Mass/Vol] 0.30 mg/dL 0.20-1.00 [facility] Work Phone: Comment on above: For patients on eltr ombopag therapy, use of Dimension [place] TBIL is not recommended. Chloride [Moles/Vol] 106 mmol/L 98-107 [facility] Work Phone: Eosinophils/100 WBC (Bld) 1.3 % 0-5 [facility] Work Phone: [phone] Glucose [Mass/Vol] 121 mg/dL 74-106 [facility] Work Phone: Comment on above: Fasting Glucose resu lt from 100 to 125 mg/dL suggests IMPAIRED HOMEOSTASIS per A.D.A. criteria. Neutrophils (Bld) [#/Vol] 4.6 10*3/uL 2.0-7.7 [facility] Work Phone: Neutrophils/100 WBC (Bld) 55.4 % 47-70 [facility] Work Phone: [phone] Potassium [Moles/Vol] 3.8 mmol/L 3.5-5.1 [facility] Work Phone: Protein [Mass/Vol] 7.4 g/dL 6.4-8.2 [facility] Work Phone: [phone] Sodium [Moles/Vol] 138 mmol/L 136-145 [facility] Work Phone: [phone] WBC (Bld) [#/Vol] 8.3 10*3/uL 4.4-11.0 [facility] Work Phone: [phone] Blood erythrocytes count (nu mber/volume)on 07-31-2021 RBC (Bld) [#/Vol] 4.72 10*6/uL 4.2-5.4 [facility] Work Phone: [phone] Blood hemoglobin measurement (mass/volume)on 07-31-2021 Hemoglobin (Bld) [Mass/Vol] 14.1 g/dL 12.0-15.0 [facility] Work Phone: Blood lymphocytes/100 leukoc yteson 07-31-2021 Lymphocytes/100 WBC (Bld) 35.7 % 19-41 [facility] Work Phone: Blood monocytes/100 leukocyt eson 07-31-2021 Monocytes/100 WBC (Bld) 6.9 % 0-10 [facility] Work Phone: Blood platelet mean volumeon 07-31-2021 Platelet mean volume (Bld) [Entitic vol] 11.4 fL 6.2-12.0 [facility] Work Phone: Determination of erythrocyte mean corpuscular volume (MCV)on 07-31-2021 MCV (RBC) [Entitic vol] 89.2 fL 81-99 [facility] Work Phone: Hematocrit Auto (Bld) [Volum e fraction]on 07-31-2021 Hematocrit (Bld) [Volume fraction] 42.1 % 37-47 [facility] Work Phone: Laboratory - Chemistry and C hemistry - challengeon 07-31-2021 ALP [Catalytic activity/Vol] 78 U/L 45-117 [facility] Work Phone: ALT [Catalytic activity/Vol] 38 U/L 13-56 [facility] Work Phone: [phone] CO2 [Moles/Vol] 25.0 mmol/L 21.0-32.0 [facility] Work Phone: Globulin (S) [Mass/Vol] 3.9 g/dL 2.2-4.2 [facility] Work Phone: [phone] Urea nitrogen/Creatinine [Mass ratio] 16.4 mg/mg 10-20 [facility] Work Phone: Laboratory - Hematology and Cell countson 07-31-2021 Erythrocyte distribution width (RBC) [Entitic vol] 43.3 fL 35.1-43.9 [facility] Work Phone: [phone] Erythrocyte distribution width (RBC) [Ratio] 13.2 % 11.6-14.6 [facility] Work Phone: [phone] Immature granulocytes/100 WBC (Bld) 0.200 % 0.0-0.9 [facility] Work Phone: [phone] Comment on above: IG% - Immature Granu locytes (promyelocytes, myelocytes and metamyelocytes) > 1% indicates that a LEFT SHIFT is Present. MCH (RBC) [Entitic mass] 29.9 pg 27.0-32.0 [facility] Work Phone: [phone] Nucleated RBC/100 WBC (Bld) [Ratio] 0 % 0-5 [facility] Work Phone: [phone] MCHC Auto (RBC) [Mass/Vol]on 07-31-2021 MCHC (RBC) [Mass/Vol] 33.5 g/dL 32-36 [facility] Work Phone: [phone] No Panel Informationon 07-31 Estimated GFR (MDRD) Amer 115 mL/min >60 [facility] Work Phone: [phone] Comment on above: GFR Calc Estimated GFR (MDRD) Non-Af Amer 95 mL/min >60 [facility] Work Phone: [phone] Comment on above: Non- GFR Calc Thyroid Stimulating Hormone (TSH) 2.15 uIU/mL 0.358-3.74 [facility] Work Phone: [phone] Platelets bldon 07-31-2021 Platelets (Bld) [#/Vol] 291 10*3/uL 150-450 [facility] Work Phone: [phone] Serum or plasma albumin kate urement (mass/volume)on 07-31-2021 Albumin [Mass/Vol] 3.5 g/dL 3.2-5.0 [facility] Work Phone: [phone] Serum or plasma albumin/glob ulin mass ratioon 07-31-2021 Albumin/Globulin [Mass ratio] 0.9 {ratio} 0.9-2.4 [facility] Work Phone: Serum or plasma calcium kate urement (mass/volume)on 07-31-2021 Calcium [Mass/Vol] 9.1 mg/dL 8.5-10.1 [facility] Work Phone: Serum or plasma creatinine m easurement (mass/volume)on 07-31-2021 Creatinine [Mass/Vol] 0.73 mg/dL 0.55-1.02 [facility] Work Phone: Comment on above: The validity of the calculated GFR & GFRAA in patients over 70 years has not been determined. Clinical correlation is essential. Serum or plasma ferritin eloy surement (mass/volume)on 07-31-2021 Ferritin [Mass/Vol] 183 ng/mL 8-252 [facility] Work Phone: Serum or plasma urea nitroge n measurement (mass/volume)on 07-31-2021 Urea nitrogen [Mass/Vol] 12 mg/dL 7-18 [facility] Work Phone: Thin prep Papanicolaou smear with manual screeningon 07-31-2021 Thin prep Papanicolaou smear with manual screening 21 U/L 15-37 [facility] Work Phone: Thin prep Papanicolaou smear with manual screening 7 5-15 [facility] Work Phone: Whole blood hemoglobin A1c/t otal hemoglobin ratio (mass fraction)on 07-31-2021 HbA1c (Bld) [Mass fraction] 6.0 % 3.8-5.6 [facility] Work Phone: Comment on above: Normal < 5.7 % Predi abetic 5.7 - 6.4 % Diabetic >or= 6.5 % Please note range changes. Laboratory - Microbiology an d Antimicrobial susceptibilityon 05-06-2021 SARS-CoV-2 (COVID-19) RNA KAMLA+probe Ql (Unsp spec) Not detected Not Detect [facility] Work Phone: Comment on above: Normal Reference Ran ge: Not DetectedMethod:(RT-PCR) real-time reverse transcriptase PCRLuGlobaTrek Instrument*The Food and Drug Administration (FDA) has issued an Emergency Use Authorization (EAU) for the MURRAY SARS-CoV-2 Assay for the rapid detection of the virus that causes COVID-19. This test has been validated, but the [facility] review of this validation is pending.*Negative [...] Thyroid Stimulating Hormone (TSH) 1.31 uIU/mL 0.358-3.74 [facility] Work Phone: Laboratory - Microbiology an d Antimicrobial susceptibilityon 04-08-2021 SARS-CoV-2 (COVID-19) RNA KAMLA+probe Ql (Unsp spec) Not detected Not Detect [facility] Work Phone: Comment on above: Normal Reference Ran ge: Not DetectedMethod:(RT-PCR) real-time reverse transcriptase PCRLuminex MURRAY Instrument*The Food and Drug Administration (FDA) has issued an Emergency Use Authorization (EAU) for the MURRAY SARS-CoV-2 Assay for the rapid detection of [...] effusion IMPRESSION: 1. Normal right elbow. Normal [facility] Vital Signs Date Time Vital Sign Value Performing Clinician [place] 02-18-2025 11:46-0400 Body height 170.18 cm Alex Etienne MD Work Phone: [facility] 02-18-2025 11:46-0400 Body mass index (BMI) [Ratio] 33.2 kg/m2 Alex Etienne MD Work Phone: [facility] 02-18-2025 11:46-0400 Body temperature 98.5 [degF] Alex Etienne MD Work Phone: [phone] [place] [address] 02-18-2025 11:46-0400 Body weight 96.16 kg Alex Etienne MD Work Phone: [phone] [place] [address] 02-18-2025 11:46-0400 Diastolic blood pressure 82 mm[Hg] Alex Etienne MD Work Phone: [phone] [place] [address] 02-18-2025 11:46-0400 Heart rate 101 /min Alex Etienne MD Work Phone: [facility] 02-18-2025 11:46-0400 SaO2% (BldA) [Mass fraction] 98 % Alex Etienne MD Work Phone: [facility] 02-18-2025 11:46-0400 Systolic blood pressure 134 mm[Hg] Alex Etienne MD Work Phone: [facility] 01-12-2025 12:31-0400 Body height 170.18 cm Alex Etienne MD Work Phone: [facility] 01-12-2025 12:31-0400 Body mass index (BMI) [Ratio] 33.2 kg/m2 Aelx Etienne MD Work Phone: [facility] 01-12-2025 12:31-0400 Body weight 96.16 kg Alex Etienne MD Work Phone: [facility] 01-12-2025 12:31-0400 Diastolic blood pressure 86 mm[Hg] Alex Etienne MD Work Phone: [facility] 01-12-2025 12:31-0400 Systolic blood pressure 122 mm[Hg] Alex Etienne MD Work Phone: [facility] 11-25-2024 10:43-0400 Body temperature 97.8 [degF] Alex Etienne MD Work Phone: [facility] 11-25-2024 10:43-0400 Diastolic blood pressure 76 mm[Hg] Alex Etienne MD Work Phone: [phone] [place] [address] 11-25-2024 10:43-0400 Heart rate 87 /min Alex Etienne MD Work Phone: [phone] [place] [address] 11-25-2024 10:43-0400 Respiratory rate 16 /min Alex Etienne MD Work Phone: [facility] 11-25-2024 10:43-0400 SaO2% (BldA) [Mass fraction] 97 % Alex Etienne MD Work Phone: [facility] 11-25-2024 10:43-0400 Systolic blood pressure 118 mm[Hg] Alex Etienne MD Work Phone: [facility] 11-17-2024 08:17-0400 Body height 170.18 cm Alex Etienne MD Work Phone: [facility] 11-17-2024 08:17-0400 Body mass index (BMI) [Ratio] 34.3 kg/m2 Alex Etienne MD Work Phone: [facility] 11-17-2024 08:17-0400 Body weight 99.5 kg Alex Etienne MD Work Phone: [facility] 11-17-2024 08:17-0400 Diastolic blood pressure 79 mm[Hg] Alex Etienne MD Work Phone: [facility] 11-17-2024 08:17-0400 Systolic blood pressure 126 mm[Hg] Alex Etienne MD Work Phone: [facility] 09-23-2024 14:38-0400 Body temperature 98.2 [degF] Alex Etienne MD Work Phone: [facility] 09-23-2024 14:38-0400 Body weight 102.05 kg Alex Etienne MD Work Phone: [facility] 09-23-2024 14:38-0400 Diastolic blood pressure 85 mm[Hg] Alex Etienne MD Work Phone: [facility] 09-23-2024 14:38-0400 Heart rate 104 /min Alex Etienne MD Work Phone: [facility] 09-23-2024 14:38-0400 Respiratory rate 16 /min Alex Etienne MD Work Phone: [facility] 09-23-2024 14:38-0400 SaO2% (BldA) [Mass fraction] 96 % Alex Etienne MD Work Phone: [facility] 09-23-2024 14:38-0400 Systolic blood pressure 135 mm[Hg] Alex Etienne MD Work Phone: [facility] 09-05-2024 08:55-0400 Body temperature 98.5 [degF] Alex Etienne MD Work Phone: [facility] 09-05-2024 08:55-0400 Diastolic blood pressure 84 mm[Hg] Alex Etienne MD Work Phone: [facility] 09-05-2024 08:55-0400 Heart rate 76 /min Alex Etienne MD Work Phone: [facility] 09-05-2024 08:55-0400 Respiratory rate 14 /min Alex Etienne MD Work Phone: [facility] 09-05-2024 08:55-0400 Systolic blood pressure 128 mm[Hg] Alex Etienne MD Work Phone: [facility] 05-20-2024 07:44-0500 Body temperature 98.5 [degF] Alex Etienne MD Work Phone: [facility] 05-20-2024 07:44-0500 Diastolic blood pressure 60 mm[Hg] Alex Etienne MD Work Phone: [facility] 05-20-2024 07:44-0500 Heart rate 76 /min Alex Etienne MD Work Phone: [facility] 05-20-2024 07:44-0500 Respiratory rate 16 /min Alex Etienne MD Work Phone: [facility] 05-20-2024 07:44-0500 SaO2% (BldA) [Mass fraction] 96 % Alex Etienne MD Work Phone: [facility] 05-20-2024 07:44-0500 Systolic blood pressure 126 mm[Hg] Alex Etienne MD Work Phone: [facility] 08-27-2023 13:51-0400 Body height 170.18 cm DO Kelsie Jacinto Work Phone: [facility] 08-27-2023 13:51-0400 Body mass index (BMI) [Ratio] 34.6 kg/m2 DO Kelsie Jacinto Work Phone: [facility] 08-27-2023 13:51-0400 Body weight 100.3 kg DO Kelsie Jacinto Work Phone: [facility] 08-27-2023 13:51-0400 Diastolic blood pressure 86 mm[Hg] DO Kelsie Jacinto Work Phone: [facility] 08-27-2023 13:51-0400 Systolic blood pressure 122 mm[Hg] DO Kelsie Jacinto Work Phone: [facility] 10-24-2022 10:27-0400 Body height 170.2 cm Preet Saucedo MD Work Phone: [facility] 10-24-2022 10:27-0400 Body weight 101.79 kg Preet Saucedo MD Work Phone: [facility] 10-24-2022 10:27-0400 Diastolic blood pressure 62 mm[Hg] Preet Saucedo MD Work Phone: [facility] 10-24-2022 10:27-0400 Systolic blood pressure 100 mm[Hg] Preet Saucedo MD Work Phone: [facility] 08-28-2021 13:51-0400 Body height 168.9 cm Kely Bustillo MD Work Phone: [facility] 08-28-2021 13:51-0400 Body weight 99.79 kg Kely Bustillo MD Work Phone: [facility] Encounters Encounter Date Encounter Type Care Provider Facility Start: 02-18-2025 End: 02-18-2025 Patient encounter procedure Jessy Younger [employer] [facility] Work Phone: Start: 02-18-2025 End: 02-18-2025 ambulatory Alex Etienne Facility:[facility] Start: 02-02-2025 End: 02-02-2025 ambulatory Alex Etienne MD Work Phone: -[facility] Start: 02-02-2025 End: 02-02-2025 Patient encounter procedure Kelley Higuera [employer] -[facility] Work Phone: Start: 02-02-2025 End: 02-02-2025 ambulatory Kelley Higuera Facility:[facility] Start: 01-12-2025 End: 01-12-[address] Kailey Huerta DC -[facility] Work Phone: Start: 01-12-2025 End: 01-12-2025 ambulatory Aelx Etienne MD Work Phone: -[facility] Start: 01-05-2025 End: 01-05-2025 ambulatory Alex Etienne MD Work Phone: -[facility] Start: 01-05-2025 End: 01-05-[address] Alex Etienne MD -[facility] Start: 01-05-2025 End: 01-05-2025 ambulatory Alex Etienne Facility:[facility] Start: 11-25-2024 End: 11-25-2024 Patient encounter procedure Dane JACKMAN -[facility] Work Phone: Start: 11-25-2024 End: 11-25-2024 ambulatory Alex Etienne MD Work Phone: -[facility] Start: 11-25-2024 End: 11-25-2024 ambulatory Dane JACKMAN Facility:[facility] Start: 11-17-2024 End: 11-17-2024 ambulatory Alex Etienne MD Work Phone: -[facility] Start: 11-17-2024 End: 11-17-2024 Patient encounter procedure Kelley Higuera NP-C -[facility] Start: 11-17-2024 End: 11-17-2024 Patient encounter procedure Kelley Higuera NP-C -[facility] Work Phone: Start: 11-17-2024 End: 11-17-2024 Patient encounter status Kelley Higuera NP-C [facility] Start: 11-17-2024 End: 11-17-2024 ambulatory lAex Etienne MD Work Phone: [facility] Start: 11-17-2024 End: 11-17-2024 ambulatory Kelley Higuera Facility:[facility] Start: 10-05-2024 End: 10-05-2024 ambulatory Alex Etienne MD Work Phone: [facility] Work Phone: Start: 10-05-2024 End: 10-05-[address] Alex Et[facility] MD [facility] Start: 10-05-2024 End: 10-05-2024 ambulatory Alex Etienne Facility:[facility] Start: 09-23-2024 End: 09-23-2024 Patient encounter procedure Fabiola JACKMAN -[facility] Work Phone: Start: 09-23-2024 End: 09-23-2024 ambulatory Alex Etienne MD Work Phone: [facility] Work Phone: Start: 09-05-2024 End: 09-05-2024 Patient encounter procedure Omid Sandra PA -[facility] Work Phone: Start: 09-05-2024 End: 09-05-2024 ambulatory Chalon Jaimie Facility:[facility] Start: 09-05-2024 End: 09-05-2024 ambulatory Chalon Jaimie Facility:[facility] Start: 08-11-2024 End: 08-11-2024 ambulatory Alex Etienne MD Work Phone: [facility] Work Phone: Start: 08-11-2024 End: 08-11-[address] Alex Etienne MD -Laboratory, [facility] Start: 08-11-2024 End: 08-11-2024 ambulatory Alex Etienne Facility:[facility] Start: 06-21-2024 End: 06-21-[address] Alex Etienne MD -Laboratory, [facility] Start: 06-21-2024 End: 06-21-2024 ambulatory Chaljae Jaimie Facility:[facility] Start: 06-18-2024 End: 06-18-2024 Patient encounter procedure Jessy JACQUESC -[facility] Work Phone: Start: 06-18-2024 End: 06-18-2024 ambulatory Alex Jaimie Facility:[facility] Start: 05-20-2024 End: 05-20-2024 Patient encounter procedure Dane JACKMAN -[facility] Work Phone: Start: 05-20-2024 End: 05-20-2024 ambulatory Dane JACKMAN Facility:[facility] Start: 04-09-2024 End: 04-09-2024 ambulatory Arden Shen Facility:[facility] Start: 02-24-2024 End: 02-24-2024 ambulatory Chalon Jaimie Facility:[facility] Start: 02-24-2024 End: 02-24-2024 ambulatory Omid JACKMAN Facility:[facility] Start: 08-27-2023 End: 08-27-2023 ambulatory DO Kelsie Casey Work Phone: [facility] Work Phone: Start: 08-27-2023 End: 08-27-2023 Patient encounter procedure DO Kelsie Casey Work Phone: [facility]-Laboratory, Specimen Work Phone: Start: 08-27-2023 End: 08-27-2023 Patient encounter procedure DO Kelsie Casey Work Phone: [facility] Work Phone: Start: 08-07-2023 End: 08-07-2023 ambulatory [facility] Work Phone: Start: 08-07-2023 End: 08-07-2023 [facility] Start: 05-27-2023 End: 05-27-2023 ambulatory [facility] Work Phone: Start: 05-27-2023 End: 05-27-2023 [facility] Start: 03-20-2023 End: 03-20-2023 ambulatory [facility] Work Phone: Start: 03-20-2023 End: 03-20-2023 [facility] Start: 02-06-2023 ambulatory Preet Temple Work Phone: OB/Gynecology Comment on above: Lab work Start: 12-30-2022 End: 12-30-2022 ambulatory [facility] Work Phone: Start: 12-30-2022 End: 12-30-2022 [facility] Start: 10-24-2022 End: 10-25-2022 ambulatory PREET SAUCEDO Facility:[facility] Start: 10-24-2022 Encounter for gynecological examination (general) (routine) without abnormal findings PREET SAUCEDO [facility] Start: 10-24-2022 End: 10-24-2022 Patient encounter procedure Preet Saucedo MD Work Phone: OB/Gynecology Comment on above: Encounter for gyneco logical examination (general) (routine) without abnormal findings (Primary Dx); Special screening examination for human papillomavirus (HPV); Screening for cervical cancer Start: 10-24-2022 End: 10-24-2022 Patient encounter status Preet Saucedo MD Work Phone: OB/Gynecology Start: 10-20-2022 End: 10-20-2022 ambulatory [facility] Work Phone: Start: 10-20-2022 End: 10-20-2022 Patient encounter procedure [facility]-Laboratory, Specimen Start: 09-11-2022 End: 09-11-2022 ambulatory [facility] Work Phone: Start: 09-11-2022 End: 09-11-2022 [facility] Start: 08-25-2022 End: 08-25-2022 ambulatory [facility] Work Phone: Start: 08-25-2022 End: 08-25-2022 Patient encounter procedure [facility]-Outpatient [facility] Start: 08-05-2022 End: 08-05-2022 [facility] Start: 05-23-2022 End: 05-23-2022 ambulatory [facility] Work Phone: Start: 05-23-2022 End: 05-23-2022 [facility] encounter [facility] Start: 08-28-2021 End: 08-28-2021 Patient encounter procedure Kely Bustillo MD Work Phone: OB/Gynecology Comment on above: Encounter for gyneco logical examination (general) (routine) without abnormal findings (Primary Dx); Obesity, Class I, BMI 30-34.9 Start: 08-28-2021 End: 08-28-2021 Patient encounter status Kely Bustillo MD Work Phone: OB/Gynecology Start: 07-31-2021 End: 07-31-2021 [facility] encounter [facility] Start: 06-07-2021 End: 06-07-2021 [facility] Start: 05-06-2021 [facility] Start: 04-24-2021 [facility] Start: 04-08-2021 Patient encounter procedure [facility] Start: 01-18-2017 End: 01-19-2017 Ambulatory [facility] Start: 01-18-2017 End: 01-19-2017 Emergency department patient visit NO REFERRING DR Facility[facility] Start: 01-18-2017 [facility] Procedures Date Procedure Procedure Detail Performing Clinician Start: 02-02-2025 Screening mammography C leanne Etienne MD Work Phone: Start: 11-25-2024 X-ray of chest, PA a [...] Author Start: 10-25-2027 HPV Testing HPV Testing [facility] Start: 10-25-2027 Pap Testing Pap Testing [facility] Start: 02-07-2025 HPV TESTING HPV TESTING [facility] Start: 02-07-2025 PAP TESTING PAP TESTING [facility] Start: 02-02-2025 MG Breast - bilateral Screening [facility] Start: 11-25-2024 X-ray of chest, PA and lateral views Chest PA and Lateral [facility] Start: 11-25-2024 XR Chest PA and Lateral [facility] Start: 01-09-2023 Influenza vaccination [facility] Start: 05-11-2022 DEPRESSION ASSESSMENT DEPRESSION ASSESSMENT [facility] Start: 01-09-2022 Influenza vaccination INFLUENZA (Season Ended) [facility] Start: 10-09-2003 Urine microalbumin profile [facility] Start: 1996 Adult depression screening assessment DEPRESSION SCREENING [facility] Start: 1989 COVID-19 VACCINE (1) COVID-19 VACCINE (1) [facility] Start: 04-09-1985 COVID-19 VACCINE (#1) COVID-19 VACCINE (#1) [facility] Start: 1984 HEPATITIS B (1 of 3 - 3-dose series) HEPATITIS B (1 of 3 - 3-dose series) [facility] Start: 1984 Hepatitis B Vaccine (1 of 3 - 3-dose series) Hepatitis B Vaccine (1 of 3 - 3-dose series) [facility] MG Breast - bilatera l Screening [facility] MG Breast - bilatera l Screening [facility] PAP TEST PAP TEST Lab Rou karolina Encounter for gynecological examination (general) (routine) without abnormal findings Special screening examination for human papillomavirus (HPV) Screening for cervical cancer 10/24/2022 10:55 AM EDT [facility] Work Phone: [facility] Immunizations Immunization Date Immunization Notes Care Provider [facility] 04-09-2024 influenza, injectabl e, madin abena canine kidney, preservative free Alex Etienne MD Work Phone: [facility] 03-31-2016 influenza, injectabl e, quadrivalent, preservative free [facility] 03-31-2016 influenza, seasonal, injectable [facility] 03-31-2016 influenza virus vaccine, unspecified formulation Preet Saucedo MD Work Phone: [facility] 02-12-2015 influenza, injectabl e, quadrivalent, preservative free [facility] 02-12-2015 influenza, seasonal, injectable [facility] Payers Date Payer Category Payer Self-pay [id number] 2024 Unknown [id number] 2022 Medicaid [employer] [id number] 2022-Present [phone] [address] [place] [address] Medicaid [id number] 2022 Unknown [id number] 2020 Private Health Insurance [facility] CHOICE PLUS [id number] 2020-Present [phone] [address] [address] [place] [address] HMO [id number] 2020 Private Health Insurance [facility] U[employer] CHOICE PLUS [id number] 2020-Present [phone] [address] [address] [place] [address] HMO [id number] 2020 Unknown [id number] 2019 Medicaid [employer] [id number] 2019-Present [phone] [address] [place] [address] Medicaid [id number] Unknown [id number] Unknown Unknown [facility] [id number] Unknown [id number] .0.1.367426.3.579.2. 462 Unknown [id number] .1.683764.3.579.2. 462 Unknown [id number] .0.1.556469.3.579.2. 462 Unknown [id number] .0.1.151584.3.579.2. 462 Unknown [id number] 2.840.1.020144.3.579.2. 462 Unknown [id number] 2.0.1.295018.3.579.2. 462 Unknown [id number] 2.0.1.689825.3.579.2. 462 Unknown [id number] 2.16.840.1.535269.3.579.2. 462 Unknown [id number] 2.16.840.1.440302.3.579.2. 462 Unknown [id number] 2.16.840.1.746634.3.579.2. 462 Unknown [id number] 2.16.840.1.754615.3.579.2. 462 Unknown [id number] 2.16.840.1.234572.3.579.2. 462 Unknown [id number] 2.16.840.1.757832.3.579.2. 462 Unknown [id number] 2.16.840.1.771664.3.579.2. 462 Unknown [id number] 2.16.840.1.896495.3.579.2. 462 Unknown [id number] 2.16.840.1.257395.3.579.2. 462 Unknown [id number] 2.16.840.1.357147.3.579.2. 462 Unknown [id number] 2.16.840.1.178705.3.579.2. 462 Unknown [id number] 2.16.840.1.484246.3.579.2. 462 Unknown [id number] 2.16840.1.296401.3.579.2. 462 Social History Date Type Detail Facility Start: 03-25-2019 End: 08-27-2023 Tobacco smoking status [facility] Unknown if ever smoked [facility] Start: 1985 Sex Assigned At Female C [facility] Start: 12-26-2014 End: 02-18-2025 Tobacco smoking status [facility] Ex-smoker [facility] Work Phone: End: 09-22-2014 History of tobacco use Current smoker [facility] Work Phone: Start: 12-26-2014 End: 10-24-2022 Tobacco use and exposure Smokeless tobacco non-user [facility] Work Phone: Start: 08-28-2021 End: 10-24-2022 Alcohol intake Current drinker of alcohol (finding) [facility] Start: 08-21-2014 History SDOH Alcohol Comment occ [facility] Start: 08-18-2021 End: 08-28-2021 Exposure to SARS-CoV-2 (event) Not sure [facility] End: 09-22-2014 History of tobacco use Cigarette Smoker [facility] Start: 10-24-2022 History of Social function [facility] Start: 10-24-2022 [facility] (1-10 0), lower number is lower risk 51 [facility] Start: 06-19-2021 Gender identity Identifies as female gender (finding) [facility] Start: 06-19-2021 Sexual orientation Heterosexual (fin ding) [facility] Start: 08-15-2024 Sex Female (finding) [facility] Goals Date Patient Goal Desired Activity /State Clinical Notes 08-28-2021 to 02-18-2025 Note Date & Type Note Facility 02-18-2025 Progress note [facility] 11-25-2024 Radiology Diagnostic study note [facility] Imaging Services [address] [place], [place] [address] Chest PA and Lateral MR#: [id number] Acct: [id number] Name: ANN FLORES Rep #: [id number] : 1985 F 39 From: Otoniel Stout DO PCP: Dr. Alex Etienne MD Status: REG CL I Study:Chest PA and Lateral Date of Exam: 11/25/24 Exam# [id number] Ordering Dr: Megha Dubois PA PA PROCEDURE: CHEST PA AND LATERAL 11/25/2024 [...] cardiopulmonary process is identified radiographically. Reading Location: [id number] CC: GASPER Orellana; Dr. Alex Etienne MD ~ Learning Disabilities Specialist: Signed [facility] 11-17-2024 Evaluation note Diagnosis Onset Date Resolution Atypical squamous cell changes of undetermined significance (ASCUS) on cerv acute November 17, 2024 8:14am Encounter for routine gynecological examination noneactive November 17, 2024 8:14am Acute bronchitis acute November 10:33am Acute sinusitis acute November 10:33am Cervicogenic headache acute Jan 12:17pm Segmental and somatic dysfunction of cervical region acute January 12 12:17pm Segmental and somatic dysfunction of thoracic region acute January 12 12:17pm [facility] Work Phone: 1(211) 934-250207-10-2025 Evaluation note* Diagnosis Onset Date Resolution Status Admit Date Atypical squamous cell changes of undetermined significance (ASCUS) on cerv acute Nov 8:14am Encounter for routine gynecological examination noneactive November 082024 8:14am Acute bronchitis acute November 10:33am Acute sinusitis acute November 10:33am Cervicogenic headache acute Jan 12:17pm Segmental and somatic dysfunction of cervical region acute January 12 12:17pm Segmental and somatic dysfunction of thoracic region acute January 12 12:17pm Post-op pain acute February 11:50am [facility] Work Phone: 1(497) 115-854505-16-2025 Evaluation note* Diagnosis Onset Date Resolution Status Admit Date Spider veins acute September 23 2:17pm Atypical squamous cell og es of undetermined significance (ASCUS) on cerv acute November 17, 2024 8:14am Encounter for routine gynecological examination noneactive November 082024 8:14am Acute bronchitis acute November 10:33am Acute sinusitis acute November 10:33am [facility] Work Phone: 1(623) 134-823105-16-2025 Evaluation note* Diagnosis Onset Date Resolution Status Admit Date Spider veins acute September 23 2:17pm Atypical squamous cell changes of undetermined significance (ASCUS) on cerv acute Nov 8:14am Encounter for routine gynecological examination noneactive November 082024 8:14am Acute bronchitis acute November 10:33am Acute sinusitis acute November 10:33am Segmental and somatic dysfunction of cervical region acute January 12 12:17pm Segmental and somatic dysfunction of thoracic region acute January 12 025 12:17pm [facility] [employer] Work Phone: 1(551) 740-713104-28-2025 Evaluation note* Diagnosis Onset Date Resolution Status Admit Date Contusion of left forearm acute September 05, 2024 8:48am Spider veins acute September 23 2:17pm Atypical squamous cell og es of undetermined significance (ASCUS) on cerv acute November 17, 2024 8:14am Encounter for routine gynecological examination noneactive November 082024 8:14am [facility] Work Phone: 1(626) 569-331504-28-2025 Evaluation note* Diagnosis Onset Date Resolution Status Admit Date Contusion of left forearm acute September 05, 2024 8:48am Spider veins acute September 23 2:17pm Atypical squamous cell og es of undetermined significance (ASCUS) on cerv acute November 17, 2024 8:14am Encounter for routine gynecological examination noneactive November 082024 8:14am Acute bronchitis acute November 10:33am Acute sinusitis acute November 10:33am [facility] Work Phone: 1(692) 409-582302-08-2025 Evaluation note* Diagnosis Onset Date Resolution Status Admit Date Intertrigo acute June 18, 2024 12:02pm Contusion of left forearm acute September 05, 2024 8:48am [facility] Work Phone: 1(810) 300-979402-08-2025 Evaluation note* Diagnosis Onset Date Resolution Status Admit Date Intertrigo acute June 18, 2024 12:02pm Contusion of left forearm acute September 05, 2024 8:48am Spider veins acute September 23 2:17pm [facility] Work Phone: 1(804) 463-801301-10-2025 Evaluation note* Diagnosis Onset Date Resolution Status Admit Date Acute upper respiratory infection acute May 20 7:34am Intertrigo acute June 18, 2024 12:02pm [facility] Work Phone: 1(592) 335-657104-18-2024 NotePap Smear Specimen AdequacyApril 2023 5:50pmComment.Satisfactory for evaluation. No endocervical component is identified.[facility] A#[id number] [facility] City HospitalComment on above:Satisfactory for evaluation. No endocervical component is identified. 02-06-2023 Miscellaneous Notes* Telephone Encounter - Preet Saucedo MD - 02/06/2023 3:49 PM EDT I would not recommend checking hormone levels unless she is having other symptoms. If she is havingother symptoms, she needs an appointment to discuss. Recommend starting with her PCP if she is noticing mood changes documented [facility]2023 NoteHNO ID: [id number] Author: Preet Saucedo MD Service: ? Author Type: Physician Type: Progress Notes Filed: 10/24/2022 11:20 AM Note Text: Client Relationship Consultant offered: Patient declines. Ann is a 37 year old who presents for an annual gynecologic exam without complaints. Menses: no menses - Mirena IUD. 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 Ann is a 37 year old who presents for an annual gynecologic exam without complaints. Menses: no menses - Mirena IUD. 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: Sexual Activity: Yes; Male Contraception: [...] external genitalia normal, normal Bartholin's glands, urethra, [place]'s glands, no vulvar lesions, no cervical lesions, [...] needed Preet Saucedo DO documented in [facility] History of Present illness Narrative* Kely Bustillo [...] L2 SAB0 IAB0 Ectopic0 Multiple0 Live Births0 [employer] 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 LMP: 09/10/2014, IUD Age at Menarche: Age at First : 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: Sexual Activity: Yes; Male Contraception: [...] external genitalia normal, normal Bartholin's glands, urethra, [place]'s glands, no vulvar lesions, no cervical lesions, [...] reassured Kely Bustillo MD documented in this encounterSelect [facility] HospitalChi complaint+Reason for visit Narrative* Chief Complaint 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) Reason for Visit [id number] Intrauterine device surveillance Women's annual routine gynecological examination [facility] Work Phone: Evaluation noteNo assessment information available [facility] Work Phone: Evaluation note* Diagnosis Encounter for gynecological examination (general) (routine) without abnormal findings- Primary Obesity, Class I, BMI 30-34.9 Obesity, unspecified documented in this encounter [facility] note* Diagnosis Encounter for gynecological examination (general) (routine) without abnormal findings- Primary Special screening examination for human papillomavirus (HPV) Screening for cervical cancer Screening for malignant neoplasm of the cervix documented in this encounter [facility] note* Diagnosis Onset Date Resolution Status [id number] acute Intrauterine device surveillance acute Women's annual routine gynecological examination noneactive [facility] Work Phone: Progress note Author Jessy Younger [facility] Note Date/Time February 18, 2025 1 2:40pm [facility] [address], [address] [place] [address] OFFICE VISIT Date of Service: 02/18/25 MR#: [id number] Acct: [id number] Name: ANN FLORES FERDINAND Rep #: [id number] : 1985 Provider: KEATON Allen Age/Sex: 39/F Location: [facility] Status: Signed Intake Vital Signs 01/12/25 12:31 02/18/25 10:53 02/18/25 11:46 Height 5 ft 7 in 5 ft 7 in 5 ft 7 in Weight: 212 lb 212 lb BMI 33.2 33.2 BP 122/86 H 134/82 H Blood Pressure Location Rt brachial Position Sitting Pulse 101 H Pulse Source Monitor Temp 98.5 F Temp Source Oral Pulse Oximetry (%) 98 Intake Visit Reasons: FOOT PAIN Chief Complaint: Foot Pain Accompanied by: Self Allergies No Known Allergies Allergy (Verified 02/18/25 12:23) Medications ?Medication ?Instructions ?Recorded ?Confirmed ?Type levonorgestrel (Mirena) 1 device intrauterine ONCE 1 05/25/18 02/18/25 History biotin 1 mg capsule 1 mg PO DAILY 08/27/2302/18 History cholecalciferol (vitamin D3) 50 50 mcg PO DAILY 02/18/25 History mcg (2,000 unit) capsule lactobacillus combination no.4 3 3,000 mmu cells PO DA PIPER 08/27/23 02/18/25 History billion cell capsule (Probiotic) psyllium husk 0.4 gram capsule 0.4 g PO DAILY 08/27/23 02/18/25 History (Daily Fiber) levothyroxine 112 mcg capsule 125 mcg PO DAILY 5 02/18/25 History metformin 500 mg tablet 500 mg PO QDAY 09/23/2402/08 History nystatin 100,000 unit/gram topical 1 applic topical TI D PRN 09/23/24 02/18/25 History cream phentermine 37.5 mg capsule 37.5 mg PO QDAY 09/23/24 1 History semaglutide 0.25 mg or 0.5 mg (2 mg subcut 09/23/24 History mg/3 mL) subcutaneous pen injector (Ozempic) pseudoephedrine 60 mg-DM 15 1 tab PO Q4-6H PRN cold sy mptoms 11/25/24 01/12/25 Rx mg-guaifenesin 400 mg tablet #20 tabs (Capmist DM) lidocaine 5 % topical ointment 1 applic topical TID #5 0 grams 02/18/25 02/18/25 Rx oxycodone-acetaminophen 5 mg-325 1 tab PO Q8H PRN pain 3 days #9 02/18/25 02/18/25 Rx mg tablet (Percocet) TABLETS Nurse's Note: Went to foot doctor yesterday to have plantar warts removed. Now bottom of left foot hurts. [facility] Medical History Contusion of left forearm Atypical [...] home: Yes additional social history: - [employer] HPI Chief Complaint: Foot Pain Details: ANN FLORES, is a 39 F who presents to the office today for left foot pain -had several warts removed from plantar side of foot yesterday -today with pain and hurts to put any weight on her foot -no fever or chills -has been trying to keep off her feet as much as possible- tried so far ibuprofen -states the provider use a blade and cut to the wart started bleeding, used somefreezing stuff and then applied a medication (I am assuming it was cantharidin- I can't see the note in the chart) ROS Const Constitutional: Positive for other (ROS negative x6 except what was placed in HPI) Exam Skin Other: -left plantar side of foot just below all the toes with mild swelling, redness, just below the toes looks like blood blisters- painful to touch- on top of the wart removal site there is a thick white powder like coverage- easily scrapes away- to the left heel also with the same white coverage- painful to touch the site -no warmth or drainge noted Coding Level of Care Code Off vis,est,level 3 Diagnoses Post-op pain G89.18 Assessment and Plan Assessment and Plan (1) Post-op pain: Status: Acute Plan: -tried surgical shoe and surgical boot- neither helped with the pain or pressure -fitted for crutches- advised to stay of her foot as much as possible- elevated- ice -continue with Tylenol or ibuprofen as needed- unable to send or call in percocet for short course- lidocaine ointment sent -if sx change or worsen to ED for further evaluaiton- advised should follow up with provider who did the procedure on Thursday Medications: New oxycodone-acetaminophen 5-325 mg (Percocet) 1 TAB PO Q8H PRN 9 TABLETS 0RF pain 3 days G89.18 - Other acute postprocedural pain lidocaine 5% apply to the left foot 1 applic topical TID 50 grams 0RF Plan Details Goals & Barriers: Goals Decrease TAPIA Decrease spasm Decrease inflammation Barriers Loss of lordosis 02/18/25 1318 <Electronically signed by Jessy JACQUESC> Date _ Jessy PUGH Cosigner Signature: Date (if applicable) CC: ~ [facility] Work Phone: Reason for referral (narrative)No reason for referral information availableWWVUMedicine [facility] Work Phone: Summary Purpose Family History Relationship Condition Age at Onset Recorded Date/T baylee Not Specified Diabetes mellitus Unknown Malignant neoplasm Unknown Hypertension Unknown Relationship Condition Age at Onset Recorded Date/T baylee grandmother Malignant neoplasm Unknown mother Hypertension Unknown aunt Diabetes mellitus Unknown grandfather Malignant neoplasm of skin Unknown father Cerebrovascular accident (CVA) Unknown Advance Directives Advance Directive Response Recorded Date/ Time Living Will No March 08 3:07pm Power of Deck Hand No March 08, 2018 3:07pm Advance Directive Response Recorded Date/ Time Living Will No March 08 2:07pm Power of Deck Hand No March 08, 2018 2:07pm Advance Directive Response Recorded Date/ Time Living Will No July 16, 2023 9:30am Power of Deck Hand No July 15 9:30am Chief Complaint and [...] Admit Date Acute upper respiratory infection Januar y 2024 7:34am Intertrigo June 18, 2024 1 [...] ankles September 23, 2024 2 :17pm 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, 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 8:14 am Reason for [...] ankles September 23, 2024 2 :17pm 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, 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 8:14 am Cough November [...] ankles September 23, 2024 2 :17pm 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, 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 8:14 am Cough November [...] ankles September 23, 2024 2 :17pm 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, 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 8:14 am Cough November [...] tho racic region January 12, 2025 12:17pm Chief Complaint Admit Date 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, 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 8:14 am Cough November 25, 2024 10:3 3am CHEST XRAY PA & LAT November 25, 2024 10:4 4am REEVAL January 12, 2025 12:17pm screen for breast cancer February 02, 2025 7:04am Reason for Visit Admit Date Atypical squamous cell og es of undetermined significance (ASCUS) on cerv November 17, 2024 8:14am Encounter for routine gynecological exam ination November 17, 2024 8:14am Acute bronchitis November 25, 2024 10:3 3am Acute sinusitis November 25, 2024 10:3 3am Cervicogenic headache January 12 12:17pm Segmental and somatic dysfunction of cer vical region January 12, 2025 12:17pm Segmental and somatic dysfunction of tho racic region January 12, 2025 12:17pm Chief Complaint Admit Date 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, 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 8:14 am Cough November 25, 2024 10:3 3am CHEST XRAY PA & LAT November 25, 2024 10:4 4am REEVAL January 12, 2025 12:17pm screen for breast cancer February 02, 2025 7:04am FOOT PAIN February 18, 2025 1 1:50am Reason for Visit Admit Date Atypical squamous cell og es of undetermined significance (ASCUS) on cerv November 17, 2024 8:14am Encounter for routine gynecological exam ination November 17, 2024 8:14am Acute bronchitis November 25, 2024 10:3 3am Acute sinusitis November 25, 2024 10:3 3am Cervicogenic headache January 12 12:17pm Segmental and somatic dysfunction of cer vical region January 12, 2025 12:17pm Segmental and somatic dysfunction of tho racic region January 12, 2025 12:17pm Post-op pain February 18, 2025 1 1:50am Additional Source Comments INFORMATION SOURCE (unrecogn ized section and content) DATE CREATED AUTHOR 11/04/2017 [facility] DATE CREATED AUTHOR AUTHOR'S ORGANIZ ATION 11/04/2017 [facility] DATE CREATED AUTHOR AUTHOR'S ORGANIZ ATION 11/04/2017 [facility] DATE CREATED AUTHOR AUTHOR'S ORGANIZ ATION 11/06/2022 [facility] DATE CREATED AUTHOR AUTHOR'S ORGANIZ ATION 02/20/2025 [facility] Goals (unrecognized section and content) Goals [...] or prosecute any alcohol or drug abuse patient.[facility] Hospital[facility] the event this information is protected by the Federal Confidentiality of Alcohol and Drug Abuse Patient Records regulations: The Federal rules restrict any use of the information to criminally investigate or prosecute any alcohol or drug abuse patient.[facility] HospitalIn the event this information is protected by the Federal Confidentiality of Alcohol and Drug Abuse Patient Records regulations: The Federal rules restrict any use of the information to criminally investigate or prosecute any alcohol or drug abuse patient.[facility] Reason for Visit (unrecogniz ed section and content) Reason Comments Yearly Exam Reason Comments [facility] Teams (unrecognized sec tion and content) General Ophthalmologist Relationship Specialty Start Date End Date (Historical), No Pcp PCP - General 10/01/15 Team Status: Active Member Role Status Dates Dr. Arden Mendes MD Family Provider Active Kelsie Casey DO Primary Care Provider Active Team Status: Inactive Member Role Status Dates Kelsie Monet DO [facility] Provi eduarda, Attending Provider, Referring Provider Active General Ophthalmologist Relationship Specialty Start Date End Date (Historical), No Pcp PCP - General 10/01/15 Team Status: Inactive Member Role Status Dates Kelsie Monet DO Jacinto Primary Care Provider, Attending Provider Active General Ophthalmologist Relationship Specialty Start Date End Date (Historical), [...] 20, 2024 End: May 20, 2024 Dane JACKMAN, PA Attending Provider Active Sta rt: May 20, 2024 End: May 20, 2024 Team Status: Inactive Member Role Status Juliette Etienne MD Primary Care Provider Active St art: June 18, 2024 End: June 18, 2024 Alex Etienne MD Referring Provider Active Start : June 18, 2024 End: June 18, 2024 GEORGIE PrinceC Attending Provider Active Start: June 18, 2024 [...] Active Team Status: Inactive Member Role/Relationship Status Dates [...] 17, 2024 End: November 17, 2024 Alex Etienen MD Referring Provider Active Start : November [...] Provider Active St art: November 25, 2024 GASPER Pavon Attending Provider [...] Team Status: Inactive Member Role/Relationship Status Juliette Etienen MD Primary Care Provider Active St art: January 05, 2025 End: January 05, 2025 Alex Etienne MD Attending Provider Active Start : January 05, 2025 End: January 05, 2025 Alex Etienne MD Referring Provider Active Start : January 05, 2025 End: January 05, 2025 Team Status: Inactive Member Role/Relationship Status Juliette Etienne MD Primary Care Provider Active St art: January 12, 2025 End: January 12, 2025 Alex Etienne MD Referring Provider Active Start : January 12, 2025 End: January 12, 2025 Dr. Kailey Huerta , STE[place]IE Attending Provider Active S tart: January 12, 2025 End: January 12, 2025 Team Status: Active Member Role/Relationship Status Juliette Etienne MD Primary care physician Active Team Status: Inactive Member Role/Relationship Status Juliette Etienne MD Primary care physician Active S tart: November 17, 2024 End: November 17, 2024 Alex Etienne MD Referring Provider Active Start : November 17, 2024 End: November 17, 2024 KEATON Palm Attending physician Active Start: November 17, 2024 End: November 17, 2024 Team Status: Inactive Member Role/Relationship Status Juliette Etienne MD Primary care physician Active S tart: November 17, 2024 End: November 17, 2024 KEATON Palm Attending physician Active Start: November 17, 2024 End: November 17, 2024 KEATON Palm Referring Provider Active Start: November 17, 2024 End: November 17, 2024 Team Status: Inactive Member Role/Relationship Status Juliette Etienne MD Primary care physician Active S tart: November 25, 2024 End: November 25, 2024 Alex Etienne MD Referring Provider Active Start : November 25, 2024 End: November 25, 2024 GASPER Pavon Attending physician Active St art: November 25, 2024 End: November 25, 2024 Team Status: Inactive Member Role/Relationship Status Juliette Etienne MD Primary care physician Active S tart: November 25, 2024 End: November 25, 2024 GASPER Pavon Attending physician Active St art: November 25, 2024 End: November 25, 2024 GASPER Pavon Referring Provider Active Sta rt: November 25, 2024 End: November 25, 2024 Team Status: Inactive Member Role/Relationship Status Juliette Etienne MD Primary care physician Active S tart: January 05, 2025 End: January 05, 2025 Alex Etienne MD Attending physician Active Star t: January 05, 2025 End: January 05, 2025 Alex Etienne MD Referring Provider Active Start : January 05, 2025 End: January 05, 2025 Team Status: Inactive Member Role/Relationship Status Juliette Etienne MD Primary care physician Active S tart: January 12, 2025 End: January 12, 2025 Alex Etienne MD Referring Provider Active Start : January 12, 2025 End: January 12, 2025 Dr. Kailey Huerta , [place]IE Attending physician Active Start: January 12, 2025 End: January 12, 2025 Team Status: Inactive Member Role/Relationship Status Dates Alex Etienne MD Primary care physician Active S tart: February 02, 2025 End: February 02, 2025 KEATON Palm Attending physician Active Start: February 02, 2025 End: February 02, 2025 KEATON Palm Referring Provider Active Start: February 02, 2025 End: February 02, 2025 Team Status: Inactive Member Role/Relationship Status Dates Alex Etienne MD Primary care physician Active S tart: February 18, 2025 End: February 18, 2025 Alex Etienne MD Referring Provider Active Start : February 18, 2025 End: February 18, 2025 KEATON Prince Attending physician Active Start: February 18, 2025 End: February 18, 2025 FOR RECORDS PERTAINING TO PATIENTS WHO [...] BE BASED ON THE PRIMARY CLINICAL RECORDS. [facility] [employer] provides no warranty or guarantee of the accuracy or completeness of information in this document.
[2025-04-07 10:08] LABS: Creatinine, Urine (random) 67.60 mg/dL (28.00-217.00)
[2025-04-08 09:34] LABS: Microalbumin,Random Urine < 12.0 mg/L (<20 mg/L)
== END | disposition home or self-care (01) ==
LOC: MTLAB 08:49
PROVIDERS: PCP Family Medicine; Referring Provider Family Medicine; Visit Provider Family Medicine
DX: E11.9 Type 2 diabetes mellitus without complications (principal)
CPT/HCPCS: 82043; 82570